=== PATIENT | male | born 1970 | race Caucasian/White ===

== ENCOUNTER 2020-07-27 13:11 | Emergency (ER) | payer OTHER, SELFPAY ==
--- NOTE | 2020-07-27 13:17 | ED_ITS ---
HPI - General Adult General: Chief complaint: Extremity Injury, Upper Stated complaint: Fall, suspects broken left arm, ribs Time Seen by Provider: 07/27/20 13:17 History of Present Illness: HPI narrative: Patient just fell a few minutes ago on his left side he said with his elbow tucked into side now has left elbow pain and left rib pain. Denies shortness of breath denies hitting his head loss of conscious nausea vomiting or other related problems he denies any pain anywhere else. MD complaint: Fall on ice elbow and rib pain left side Onset (ago): minute(s) Location: chest and upper extremity Radiation: non-radiation Severity: mild Severity scale (1-10): 3 Quality: burning and aching Pain Consistency: constant Relieving factors: immobilization Exacerbating factors: movement Associated symptoms: Reports no associated symptoms; Deny chest pain, dyspnea, headache(s), nausea, rash or vomiting Treatments prior to arrival: none Review of Systems Narrative: Left elbow and rib pain Const: Denies: fever(s), chills or body aches Eyes: Denies: change in vision or blurry vision ENMT: Denies: throat pain or nasal congestion Card: Denies: chest pain or dyspnea on exertion Resp: Denies: dyspnea, productive cough or non-productive cough GI: Denies: abdominal pain, nausea or vomiting : Denies: difficulty urinating Musc: Reports: joint pain (Left elbow); Denies: extremity pain Skin/Breast: Reports: other (Abrasion left elbow); Denies: rash Neuro: Denies: headache(s) Psych: Denies: anxiety Rohan/Lymph: Denies: easy bruising Physical Exam Const: COMMON NORMALS: no acute distress, average body habitus and patient oriented x3 HENMT: COMMON NORMALS: normocephalic HEAD & SCALP: normal to inspection and normocephalic FACE & SINUS: normal facial exam Eye: COMMON NORMALS: conjunctivae normal GENERAL EYE: appearance normal, both eyes and all related structures CONJUNCTIVA: Yes conjunctivae normal Neck/C-Spine: COMMON NORMALS: no JVD Chest: CHEST: Yes localized rib tenderness with anteroposterior compression (Left side) Location: 8th rib and 9th rib Resp: COMMON NORMALS: normal respiratory effort and clear to auscultation bilaterally AUSCULTATION: clear to auscultation bilaterally Cardio: COMMON NORMALS: no JVD, regular rate and regular rhythm RATE: regular rate RHYTHM: regular rhythm GI: COMMON NORMALS: Normal to inspection, nondistended, normoactive bowel sounds present Extremity: NARRATIVE EXTREMITY EXAM: Abrasion to distal aspect left elbow LEFT UPPER EXTREMITY: Yes elbow joint Left elbow: Yes inspection (Abrasion no swelling), Yes palpation (Tender to distal to the elbow approximately 2 to 3 inches), Yes ROM (Decreased) and Yes neurovascular exam (Intact) Neuro: COMMON NORMALS: patient oriented x3 Skin: OTHER: Abrasion distal to elbow Course Vital Signs: Vital signs: Vital Signs Temperature 98.0 F 07/27/20 13:24 Pulse Rate 72 07/27/20 13:24 Respiratory Rate 14 07/27/20 13:24 Blood Pressure 138/80 07/27/20 13:24 Pulse Oximetry 98 07/27/20 13:24 Discharge Plan Discharge Condition: Good Coding Level of Care Code ED Director Call Center Sales for Maritza Choudhury
[2020-07-27 13:24] VITALS: BP 138/80; PULSE 72; RESP 14; TEMP 36.7; O2SAT 98; BMI 31.4
--- NOTE | 2020-07-27 13:29 | XRR_ITS ---
PROCEDURE INFORMATION: Exam: XR Left Ribs with PA Chest, 3 Views Exam date and time: 07/27/2020 1:33 PM Age: 49 years old Clinical indication: Injury or trauma; Fall; Rib area, left side; Blunt trauma; Additional info: Fall , pain TECHNIQUE: Imaging protocol: XR Left ribs 3 views with PA chest. COMPARISON: No relevant prior studies available. FINDINGS: Lungs: Unremarkable. No consolidation. Pleural spaces: Unremarkable. No pleural effusion. No pneumothorax. Heart/Mediastinum: Unremarkable. No cardiomegaly. Bones/joints: There is a nondisplaced fracture of the posterolateral left 5th and 6th ribs. There is mild deformity of the anterior aspect of the left 4th rib suspected to be an old healed fracture. Postoperative changes in the cervical spine are noted. XR/XR ribs LT mn 3V w CXR1V [id number] IMPRESSION: Nondisplaced acute fractures of the left 5th and 6th ribs with suspected old fracture of the left 4th rib.
--- NOTE | 2020-07-27 13:29 | XRR_ITS ---
PROCEDURE INFORMATION: Exam: XR Left Elbow Exam date and time: 07/27/2020 1:32 PM Age: 49 years old Clinical indication: Injury or trauma; Fall; Blunt trauma (contusions or hematomas); Elbow; Left; Additional info: Fall, pain TECHNIQUE: Imaging protocol: XR Left elbow. Views: 3 or more views. COMPARISON: No relevant prior studies available. FINDINGS: Bones/joints: There is no elbow joint effusion. There is enthesopathy of the olecranon process and lateral epicondyle. Soft tissues: There is mild soft tissue edema overlying the olecranon process. XR/XR elbow LT min 3V* [id number] IMPRESSION: No acute bony abnormality.
[2020-07-27 15:08] VITALS: BP 130/83; PULSE 60; RESP 14; O2SAT 97
[2020-07-27] MEDS: TRAMadol 50 mg Tablet PO (15:08)
--- NOTE | 2020-07-27 15:16 | W.ED.EXTPRO ---
HPI - Extremity Problem General: Chief complaint: Extremity Injury, Upper Stated complaint: Fall, suspects broken left arm, ribs Time Seen by Provider: 07/27/20 13:17 History of Present Illness: Pain Consistency: constant Severity scale (1-10): 3 Course Vital Signs: Vital signs: Vital Signs Temperature 98.0 F 07/27/20 13:24 Pulse Rate 60 07/27/20 15:08 Respiratory Rate 14 07/27/20 15:08 Blood Pressure 130/83 07/27/20 15:08 Pulse Oximetry 97 07/27/20 15:08 MDM - Extremity (Nontraumatic) MDM Narrative: Medical decision making narrative: Patient has fracture of fifth and sixth ribs. 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 Patient follow-up primary care provider. Discharge Plan Discharge Patient Disposition: Home Clinical Impression: Contusion Qualifiers: Encounter type: initial encounter Contusion area: elbow Laterality: left Qualified Code(s): S50.02XA - Contusion of left elbow, initial encounter Fall Qualifiers: Encounter type: initial encounter Qualified Code(s): W19.XXXA - Unspecified fall, initial encounter Fracture of rib of left side Qualifiers: Encounter type: initial encounter Rib fracture type: multiple ribs Fracture type: closed Qualified Code(s): S22.42XA - Multiple fractures of ribs, left side, initial encounter for closed fracture Condition: Stable Prescriptions: New Celebrex 100 mg capsule 100 mg PO BID Qty: 20 RF: 0 hydrocodone-acetaminophen 5-325 mg tablet 1 tab PO TID PRN (Reason: pain) Qty: 14 RF: 0 Skelaxin 800 mg tablet 800 mg PO TID PRN (Reason: muscle pain) Qty: 10 RF: 0 Discharge Orders: Discharge ED (Routine); Ordered 07/27/20 Ordered By: Michael Byrne Discharge Diet: Usual diet Discharge Activity: Increase activity as tolerated Patient Instructions: Rib Fracture (ED), Contusion in Adults (ED) Activity Restrictions/Additional Instructions: Follow-up with medical provider as directed. Take medications as prescribed. Return to the ER or your medical provider if condition worsens. Please read and understand discharge instructions. If any questions ask please. Can apply ice areas that are tender. Coding Level of Care Code ED Senior Analyst Market Intelligence for Maritza Choudhury
== END 2020-07-27 15:08 | disposition home or self-care (01) ==
PROVIDERS: Emergency Provider Nurse Practitioner Family
DX: S50.02XA Contusion of left elbow, initial encounter (principal); S22.42XA Multiple fractures of ribs, left side, initial encounter for closed fracture; W19.XXXA Unspecified fall, initial encounter
CPT/HCPCS: 71101; 73080; 99283

== ENCOUNTER 2020-09-09 13:47 | Emergency (ER) | payer OTHER, SELFPAY ==
[2020-09-09 14:41] VITALS: BP 120/68; PULSE 94; RESP 18; TEMP 37.4; O2SAT 97; BMI 35.5
[2020-09-09 14:50] VITALS: BP 120/68; PULSE 99; RESP 16; O2SAT 98
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
--- NOTE | 2020-09-09 15:00 | XRR_ITS ---
PROCEDURE INFORMATION: Exam: XR Left Finger(s) Exam date and time: 09/09/2020 3:02 PM Age: 49 years old Clinical indication: Injury or trauma; Other: Laceration; Left; Index finger; Additional info: Index laceration TECHNIQUE: Imaging protocol: XR Left fingers. Views: Minimum 2 views. COMPARISON: No relevant prior studies available. FINDINGS: Bones/joints: No acute bony injury or malalignment. Soft tissues: Soft tissue swelling about the distal aspect of the index finger, without radiopaque foreign body. XR/XR finger LT min 2V [id number] IMPRESSION: Soft tissue swelling about the distal aspect of the index finger.
[2020-09-09] MEDS: lidocaine 2% INJ 20 mL INJECTION (15:45)
== END 2020-09-09 15:39 | disposition home or self-care (01) ==
PROVIDERS: Emergency Provider Physician Assistant
DX: S61.213A Laceration without foreign body of left middle finger without damage to nail, initial encounter (principal); S61.211A Laceration without foreign body of left index finger without damage to nail, initial encounter; F17.210 Nicotine dependence, cigarettes, uncomplicated; W26.0XXA Contact with knife, initial encounter
CPT/HCPCS: 12001; 73140; 99283

== ENCOUNTER → 2020-09-20 10:25 | Outpatient (BNVA) | payer OTHER, SELFPAY | PROVIDERS: Visit Provider Nurse Practitioner | DX: R19.4 Change in bowel habit (principal); R11.2 Nausea with vomiting, unspecified | CPT/HCPCS: 87071; 87880 ==

== ENCOUNTER 2020-09-24 08:47 | Outpatient (CLI) | payer OTHER, SELFPAY ==
[2020-09-24] MEDS: iohexol 300 mg/mL 50 mL Btl PO (09:24)
--- NOTE | 2020-09-24 10:30 | CT_ITS ---
WS: [id number] CT ABDOMEN PELVIS TECHNIQUE: Contrast-enhanced CT of the abdomen and pelvis with coronal and sagittal reformatted image s. CLINICAL INFORMATION: R19.4 - Change in bowel habit COMPARISON: 019 DLP: 1124.[address] scans at [facility] use at least one of these dose optimization techniques: automat ed exposure control; mA and/or kV adjustment per patient size (includes targeted exams where dose is matched to clinical indication); or iterative reconstruction. FINDINGS: Mild diffuse fatty infiltration of the liver. Cholecystectomy. Hepatomegaly. Mild splenomegaly. Siria l GE junction. Interstitial thickening and hazy infiltrates in the lung bases. Tree-in-bud nodularity in the left greater than right lower lobe. A few noncalcified subpleural nodules in the left lower l obe measuring 3 to 4 mm. Pleural thickening in the lingula with adjacent chronic appearing nondisplac ed seventh rib fracture. Mild fatty atrophy of the pancreas. Adrenal glands are normal. Normal renal parenchymal enhancement. No hydronephrosis. Normal caliber abdominal aorta. No abdominal lymphadenopathy. Sigmoid diverticulosis. No evidence of acute diverticulitis. Normal appendix in the right lower quadr ant. No evidence of small or large bowel obstruction. Tiny fat-containing umbilical hernia. CT/CT abdomen pelvis w con* [id number] IMPRESSION: 1. Mild diffuse fatty infiltration of the liver. Mild hepatomegaly and splenom egaly. 2. Patchy infiltrates in the left greater than right lower lobes may be infect ious or inflammatory. Recommend correlation for pneumonitis. One or 2 noncalcif ied tiny nodules in the left lower lobe. Findings can be further evaluated ches t CT. 3. Chronic appearing left seventh rib fracture with adjacent pleural thickenin g along the lingula 4. Sigmoid diverticulosis. No evidence of acute diverticulitis. 5. No evidence of small or large bowel obstruction. 6. No abdominal lymphadenopathy. 7. Tiny fat-containing umbilical hernia.
[2020-09-24] MEDS: iohexol 300 mg/mL 100 mL Btl IV (10:46)
== END 2020-09-24 08:48 | disposition home or self-care (01) ==
PROVIDERS: Visit Provider Surgery
DX: R19.4 Change in bowel habit (principal); K57.32 Diverticulitis of large intestine without perforation or abscess without bleeding; K76.0 Fatty (change of) liver, not elsewhere classified
CPT/HCPCS: 74177; Q9967

== ENCOUNTER → 2020-10-07 15:52 | Outpatient (BNVA) | payer OTHER, SELFPAY | PROVIDERS: Visit Provider Nurse Practitioner | DX: M25.572 Pain in left ankle and joints of left foot (principal) | CPT/HCPCS: 73610 ==

== ENCOUNTER → 2020-10-24 10:10 | Outpatient (BNVA) | payer OTHER, SELFPAY | PROVIDERS: PCP Emergency Medicine Emergency Medical Services; Visit Provider Surgery | DX: Z01.812 Encounter for preprocedural laboratory examination (principal); Z20.822 Contact with and (suspected) exposure to COVID-19 | CPT/HCPCS: 87635 ==

== ENCOUNTER 2020-10-29 07:58 | Day surgery (SDC) | payer OTHER, SELFPAY ==
[2020-10-27 13:39] VITALS: BMI 34.9
--- NOTE | 2020-10-29 08:29 | ANES.PREANE2 ---
Pre-Anesthetic Assessment Pre-Anesthetic Assessment: Height/Weight: Height 1.65 m Weight 95.254 kg Proposed Procedure: Operation Date: 10/29/20 09:45 Proposed Procedures p EGD [id number] R19.4 K21.9(Not Applicable) - Toan Monterroso MD s Colonoscopy(Not Applicable) - Toan Monterroso MD Was Beta George taken within 24 hours: N/A Was Clonidine taken within 24 hours: N/A Social: Social History: No alcohol and No tobacco Exam: Pre-Anes Outpt Exam: alert, oriented x 3, clear to auscultation bilaterally and regular rate & rhythm Airway: Submandibular: WNL Cervical ROM: Other (some limit) MP: 3 Dentition: Full Metabolic: Metabolic: Morbid obesity Neuropsych: Neuropsych: Anxiety Comments: PTSD Anesthetic Plan: ASA status: 3 Anesthesia: MAC Risk of > 500 ml blood loss (7ml/kg in children): No PFSH Anesthesia PFSH: Family History Denies family history of Anesthesia complication Bleeding disorder Social History Smoking and tobacco status: former smoker Data Anesthesia Cardiac Studies: No Data to Display
[2020-10-29 08:49] VITALS: BP 133/93; PULSE 108; RESP 18; TEMP 36.4; O2SAT 97
--- NOTE | 2020-10-29 09:03 | W.PM.OPSFHP ---
Same Day Surgery H&P Indication for Procedure/HPI DATE OF PROCEDURE: October 29, 2020 CHIEF COMPLAINT/INDICATIONFOR SURGICAL PROCEDURE: Change in bowel habits and bleeding per rectum PREOP DIAGNOSIS: vomiting/change in bowel habit PLANNED PROCEDRUE: Operation Date: 10/29/20 09:45 Proposed Procedures p EGD [id number] R19.4 K21.9(Not Applicable) - Toan Monterroso MD s Colonoscopy(Not Applicable) - Toan Monterroso MD This is a pleasant 49 years old gentleman presents to the office today with the broad-spectrum of GI symptomatology patient reports less nausea but more vomiting about 2-3 times a day for 2 to 3 days every week. He denies hematemesis and he complains of nonintentional weight loss without explanation. Complains of abdominal pain all over being sharp associated with pressure and twisting sometimes and being referred to the back. Patient reports that he has intermittent blood in stool and reports change in bowel habits in the form of diarrhea. Patient had his gallbladder out before. Patient reports that his symptom has been going on for quite some time. And he is referred to my practice for further evaluation and potential management Interim history 10/29/2020 Patient comes today for diagnostic EGD and colonoscopy as he did undergo a CT scan of the abdomen pelvis per my request and showed 1. Mild diffuse fatty infiltration of the liver. Mild hepatomegaly and splenomegaly. 2. Patchy infiltrates in the left greater than right lower lobes may be infectious or inflammatory. Recommend correlation for pneumonitis. One or 2 noncalcified tiny nodules in the left lower lobe. Findings can be further evaluated chest CT. 3. Chronic appearing left seventh rib fracture with adjacent pleural thickening along the lingula 4. Sigmoid diverticulosis. No evidence of acute diverticulitis. 5. No evidence of small or large bowel obstruction. 6. No abdominal lymphadenopathy. 7. Tiny fat-containing umbilical hernia. ROS All systems have been reviewed negative except as per the above or per problem list Medications/Allergies* Home Medications Medication Instructions Recorded Confirmed Type alprazolam 1 mg tablet 1 mg PO BID 08/14/20 10/27/20 History atorvastatin 80 mg tablet 80 mg PO DAILY 08/14/20 10/27/20 History gabapentin 800 mg tablet 800 mg PO TID PRN 08/14/20 10/27/20 History sertraline 100 mg tablet 200 mg PO DAILY tab 08/14/20 10/27/20 History Allergies/Adverse Reactions Allergy/AdvReac Type Severity Reaction Status Date / Time No Known Allergies Allergy Verified 10/29/20 09:29 Pertinent History/Comorbid Conditions* Family History (Updated 08/14/20 @ 14:14 by Alana Hernandez RN) Denies family history of Anesthesia complication Bleeding disorder Social History Smoking and tobacco status: former smoker Pertinent Exam Findings alert, oriented x 3, clear to auscultation bilaterally, regular rate & rhythm and procedure specific exam findings (Abdominal examination nontender nondistended soft) Recommendations Surgery/Procedure today (Diagnostic EGD and colonoscopy) Other Plans: Plan of care; After thorough history and physical examination and reviewing the chart chart and CT scan images with my personal interpretation, plan to perform a diagnostic esophagogastroduodenoscopy and diagnostic colonoscopy with possible biopsy and possible polypectomy. I discussed with the patient in detail the risks,benefits,alternatives and indications.The risk of aspiration, bleeding, soft tissue injury, perforation of the stomach/esophagus/colon and other potential concomitant complications were explained to the patient in details also the potential need for Thoracotomy and or Laproscoy/Laparotomy to repair any related complications including but not limited to colectomy and or Closotomy. The patient understood this well and did agree to proceed. Rationale was carefully and clearly discussed with the patient.Appropriate informed consent have been reviewed and signed Verbal and written Instructions were given to the patient for colonoscopy prep Coding Level of Care Code Acute Real Estate Coordinator for Maritza Choudhury
[2020-10-29] MEDS: sodium chloride 0.9% 1,000 ML 30 ML IV (09:22)
[2020-10-29 10:31] VITALS: BP 118/76; PULSE 86; RESP 16; TEMP 36.2; O2SAT 93
[2020-10-29 10:40] VITALS: BP 128/68; PULSE 75; RESP 17; O2SAT 92
[2020-10-29 10:50] VITALS: BP 116/76; PULSE 71; RESP 17; TEMP 36.9; O2SAT 95
--- NOTE | 2020-10-29 13:30 | ANE.PACU2 ---
Inpatient post-anesthesia follow up: Airway intact: Yes Vital signs: Temperature 98.4 F Pulse Rate 71 Respiratory Rate 17 Blood Pressure 116/76 Pulse Oximetry 95 Oxygen Delivery Me thod Room Air Oxygen Flow Rate 3 Fraction of Inspir ed Oxygen Hydration adequate: Yes Nausea and vomiting: No Pain level: 1 Mental status: Baseline
[2020-10-30 07:53] LABS: H. Pylori / CLO Test Negative
== END 2020-10-29 11:07 | disposition home or self-care (01) ==
PROVIDERS: PCP Emergency Medicine Emergency Medical Services; Visit Provider Surgery
PROC: 0DJ08ZZ Inspection of Upper Intestinal Tract, Via Natural or Artificial Opening Endoscopic (ICD-10-PCS; CPT 43235; principal; 2020-10-29 09:45)
PROC: 0DJD8ZZ Inspection of Lower Intestinal Tract, Via Natural or Artificial Opening Endoscopic (ICD-10-PCS; CPT 45378; 2020-10-29 09:45)
DX: D12.2 Benign neoplasm of ascending colon (principal); D12.4 Benign neoplasm of descending colon; D12.8 Benign neoplasm of rectum; K57.30 Diverticulosis of large intestine without perforation or abscess without bleeding; R19.4 Change in bowel habit; K62.5 Hemorrhage of anus and rectum; R11.10 Vomiting, unspecified; R16.0 Hepatomegaly, not elsewhere classified; R16.1 Splenomegaly, not elsewhere classified; S22.32XA Fracture of one rib, left side, initial encounter for closed fracture; X58.XXXA Exposure to other specified factors, initial encounter; E66.01 Morbid (severe) obesity due to excess calories; Z68.34 Body mass index [BMI] 34.0-34.9, adult; Z87.891 Personal history of nicotine dependence
CPT/HCPCS: 43239; 45385; 87077; 88305; 96360; 96361; J2704; J7030

== ENCOUNTER 2021-04-20 17:41 | Emergency (ER) | payer OTHER, SELFPAY ==
[2021-04-20 19:12] VITALS: BP 148/89; PULSE 112; RESP 18; TEMP 37.2; O2SAT 98; BMI 35.5
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
[2021-04-20] MEDS: HYDROcodone-acetaminophen 5-325 mg Tablet 1 TAB PO (21:39)
[2021-04-20 21:54] VITALS: BP 140/86; PULSE 99; RESP 18; O2SAT 97
== END 2021-04-20 21:55 | disposition home or self-care (01) ==
PROVIDERS: Emergency Provider Emergency Medicine; PCP Emergency Medicine Emergency Medical Services
DX: S29.012A Strain of muscle and tendon of back wall of thorax, initial encounter (principal); V89.2XXA Person injured in unspecified motor-vehicle accident, traffic, initial encounter; Z87.891 Personal history of nicotine dependence
CPT/HCPCS: 72125; 72128; 99282

== ENCOUNTER 2021-05-13 13:32 | Emergency (ER) | payer OTHER, SELFPAY ==
[2021-05-13] VITALS (7 sets, daily range): BP systolic 124–166; BP diastolic 77–97; PULSE 82–92; RESP 16–24; TEMP 36.9; O2SAT 92–96; BMI 35.5
--- NOTE | 2021-05-13 13:41 | ECG_ITS ---
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 Measurements Intervals [place] Rate: 83 P: 1 PA: 152 QRS: 90 QRSD: 101 T: 29 QT: 359 QTc: 423 Interpretive Statements SINUS RHYTHM Compared to ECG 05/13/2021 13:50:21 Myocardial infarct finding no longer present Electronically Signed On 05-13-2021 23:44:51 CLERICAL OFFICE by Elizabeth Bocanegra M.D. [id number]
--- NOTE | 2021-05-13 13:41 | XR_ITS ---
WS: [id number] Portable AP upright chest, 05/13/2021 Clinical Data: chest pain Comparison: PA chest, 07/27/2020. Findings: No nodules, masses or effusions are seen. The heart is at the upper limits of normal. The p ulmonary vascularity is not increased. No pneumonia or pneumothorax is seen. Monitor leads on the nino st wall. There is an anterior cervical disc fusion. XR/XR chest 1V portable [id number] Impression: Negative chest.
--- NOTE | 2021-05-13 14:02 | W.ED.CHESTPA ---
HPI - Chest Pain General: Chief Complaint: Chest Pain Stated Complaint: CP, PAIN IN L ARM, L JAW, SOB Time Seen by Provider: 05/13/21 14:02 History of Present Illness: HPI narrative: Mr Harris is a 50-year-old gentleman with history of gastritis who presents to the emergency department due to chest pain. Symptom onset was approximately 1 hour prior to arrival, he endorses midsternal chest pressure associated with radiation to the arm and neck. Minimal associated shortness of breath. Symptoms are worse with deep inspiration. He describes this is different than his typical indigestion. Overall the course has persisted. Intensity is moderate. No other new specific exacerbating or alleviating factors identified. Review of Systems General: Reports: 10 or more systems reviewed and unremarkable except in HPI and below PFSH ED PFSH: Family History Denies family history of Anesthesia complication Bleeding disorder Social History Smoking and tobacco status: former smoker Physical Exam Narrative: EXAM NARRATIVE: GENERAL/CONSTITUTIONAL - well-appearing. No acute distress. Obese Eyes -no scleral icterus, no conjunctival injection ENMT - Atraumatic external nose and ears. Moist mucous membranes NECK - supple. trachea midline CARDIOVASCULAR - regular rate and rhythm. Normal peripheral perfusion RESPIRATORY -diminished to auscultation bilaterally. No retractions or accessory muscle use. ABDOMEN/GI - Nontender/Nondistended. No tenderness to percussion or evidence of peritonitis MSK - Extremities without obvious deformity or tenderness to palpation SKIN - Warm, Dry NEURO - alert and appropriately oriented. Moves all extremities equally. Course ED course: - Patient was seen and evaluated by me at bedside - Patient placed on cardiac monitors, IV access obtained - Initial evaluation notable for no acute distress, nontoxic appearance. - Labs notable for mild leukocytosis, no acute metabolic derangements to explain patient's symptoms. - Imaging notable for no lobar consolidation or other significant finding to explain patient's symptoms - Upon serial reexamination after treatment the patient was similar - Based on patient history, evaluation, labs, and imaging as interpreted the most likely cause of the patient's condition is unspecified chest pain. I discussed possible options including admission for stress testing versus close outpatient follow-up. Patient comfortable with outpatient follow-up. - The results of ED evaluation were discussed with the patient including prescriptions and/or symptomatic cares (if applicable) including appropriate and responsible use, followup plan, and return precautions. The patient verbalized understanding and felt safe for discharge. - Patient discharged in satisfactory condition. Vital Signs: Vital signs: Vital Signs Temperature 98.5 F 05/13/21 14:39 Pulse Rate 88 05/13/21 20:48 Respiratory Rate 18 05/13/21 20:48 Blood Pressure 130/81 05/13/21 20:48 Pulse Oximetry 95 05/13/21 20:48 MDM - Chest Pain Medical Records: Attestation: I reviewed the patient's medical records. Lab Data: Attestation: I reviewed the patient's lab results. Labs: Lab Results 05/13/21 05/13/21 05/13/21 14:50 14:50 14:50 WBC 11.5 10^3/uL H 10 ^3/uL (4.0-10.0) RBC 5.13 10^6/uL 10^6 /uL (4.1-5.3) Hgb 13.4 g/dL g/dL (11.7-16.6) Hct 41.7 % L % (42.0-52.0) MCV 81.3 fl fl (80-94) MCH 26.1 pg L pg (28.0-34.0) MCHC 32.1 g/dL g/dL (30.0-36.0) RDW 13.5 % % (12.1-15.1) Plt Count 221 10^3/cmm 10^3 /cmm (130-400) MPV 10.6 fL H fL (7.4-10.4) Neut % (Auto) 74.4 % % Lymph % (Auto) 16.8 % % [place] % (Auto) 7.2 % % Eos % (Auto) 0.9 % % Baso % (Auto) 0.4 % % Neut # (Auto) 8.51 10^3/uL H 10 ^3/uL (1.8-7.7) Lymph # (Auto) 1.9 10^3/uL 10^3/ uL (0.8-4.8) [place] # (Auto) 0.8 10^3/uL 10^3/ uL (0.2-0.9) Eos # (Auto) 0.1 10^3/uL 10^3/ uL (0.0-0.8) Baso # (Auto) 0.1 10^3/uL 10^3/ uL (0.0-0.1) Nucleated RBC % (a uto) 0 % % Nucleated RBCs # 0.0 /100WBC /100W BC Sodium 136 mmol/L mmol/L (136-145) Potassium 4.4 mmol/L mmol/L (3.5-5.1) Chloride 96 mmol/L L mmol/ L (98-107) Carbon Dioxide 28 mmol/L mmol/L (22-29) Anion Gap 16.4 (5-19) BUN 10 mg/dL mg/dL (6-20) Creatinine 1.0 mg/dL mg/dL (0.7-1.2) GFR Calculation 79.4 mL/min L mL/ min (90-130) Glucose 98 mg/dL mg/dL (65-115) Calculated Osmolal ity 281 mOsm/kg L mOs m/kg (285-295) Calcium 9.1 mg/dL mg/dL (8.5-10.5) Total Bilirubin 0.3 mg/dL mg/dL (0.15-1.2) AST 15 U/L U/L (0-40) ALT 14 U/L U/L (0-41) Alkaline Phosphata se 92 IU/L IU/L (40-130) Troponin T Baselin e 6 ng/L ng/L (0-15) Troponin T 120 Min [place] Troponin T Total Protein 6.9 g/dL g/dL (6.6-8.7) Albumin 4.3 g/dL g/dL (3.5-5.2) Globulin 2.6 g/dL g/dL (1.3-4.6) Lipase 42 U/L U/L (13-60) 05/13/21 17:13 WBC RBC Hgb Hct MCV MCH MCHC RDW Plt Count MPV Neut % (Auto) Lymph % (Auto) [place] % (Auto) Eos % (Auto) Baso % (Auto) Neut # (Auto) Lymph # (Auto) [place] # (Auto) Eos # (Auto) Baso # (Auto) Nucleated RBC % (a uto) Nucleated RBCs # Sodium Potassium Chloride Carbon Dioxide Anion Gap BUN Creatinine GFR Calculation Glucose Calculated Osmolal ity Calcium Total Bilirubin AST ALT Alkaline Phosphata se Troponin T Baselin e Troponin T 120 Min [place] 6.00 ng/L ng/L (0-15) Delta Troponin T 0 ABS# ABS# (0-10) Total Protein Albumin Globulin Lipase EKG Data^: EKG 1: Attestation: I personally reviewed and interpreted this EKG as follows: EKG interpretation date: 05/13/21 EKG interpretation time: 14:15 Interpretation: Twelve-lead EKG shows a regular rhythm at a rate of 88. MO interval 180, QRS duration 106, QTc 392. Borderline axis. Interpretation: Sinus rhythm, nonspecific ST segment abnormalities. EKG 2: Attestation: I personally reviewed and interpreted this EKG as follows: EKG interpretation date: 05/13/21 EKG interpretation time: 18:20 Interpretation: Twelve-lead EKG shows a regular rhythm at a rate of 83. MO interval 152, QRS duration 101, QTc 399. Borderline axis. Interpretation: Sinus rhythm. Nonspecific ST segment abnormalities. Discharge Plan Discharge Patient Disposition: Home Clinical Impression: Chest pain Condition: Stable Prescriptions: New oxycodone 5 mg tablet 5 mg PO Q4H PRN (Reason: pain) Qty: 10 RF: 0 aspirin 325 mg tablet,delayed release (DR/EC) 325 mg PO DAILY Qty: 30 RF: 0 No Action atorvastatin 80 mg tablet 40 mg PO DAILY RF: 0 gabapentin 800 mg tablet 800 mg PO TID PRN (Reason: Pain) RF: 0 sertraline 100 mg tablet 200 mg PO QAM RF: 0 alprazolam 1 mg tablet 1 mg PO TID PRN (Reason: Anxiety) RF: 0 ziprasidone HCl 80 mg Capsule 80 mg PO BID RF: 0 doxepin 50 mg Capsule 100 mg PO BEDTIME RF: 0 trazodone 50 mg Tablet 25 mg PO BID RF: 0 metoprolol succinate 50 mg Tablet Extended Release 24 Hr 25 mg PO QAM RF: 0 Aspir-81 81 mg Tablet,Delayed Release (Dr/Ec) 81 mg PO DAILY RF: 0 Tylenol Ex Str Rapid Release 500 mg Tablet 1,000 mg PO Q4H PRN (Reason: Pain) RF: 0 baclofen 20 mg Tablet 20 mg PO BID PRN (Reason: Muscle Spasm) RF: 0 mirtazapine 30 mg Tablet 60 mg PO BEDTIME RF: 0 bupropion HCl 150 mg Tablet Extended Release 24 Hr 150 mg PO QAM RF: 0 Discharge Orders: Discharge ED (Routine); Ordered 05/13/21 Ordered By: Dawood Estrada Referrals: Ortega Marquis, [Primary Care Provider] - Discharge Diet: Usual diet Discharge Activity: Resume usual activity Patient Instructions: Chest Pain (ED), Opioid Safety Activity Restrictions/Additional Instructions: Thank you for visiting the emergency department. You were seen and evaluated for chest pain. The exact cause of your symptoms is unclear however does require further evaluation as discussed. Please follow-up with cardiology. Please follow-up with your primary care provider. Please return to the emergency department for anything that you are concerned about and feel needs emergency department evaluation. Coding Level of Care Code ED Patient Coordinator for Maritza Choudhury
[2021-05-13] MEDS: aspirin 81 mg Chew Tablet 324 MG PO (14:50)
[2021-05-13 15:08] LABS: Basophils # 0.1 10^3/uL (0.0-0.1); Basophils % 0.4 %; Eosinophils # 0.1 10^3/uL (0.0-0.8); Eosinophils % 0.9 %; Hematocrit 41.7 % (42.0-52.0); Hemoglobin 13.4 g/dL (11.7-16.6); Lymphocytes # 1.9 10^3/uL (0.8-4.8); Lymphocytes % 16.8 %; Mean Corpuscular HGB Conc 32.1 g/dL (30.0-36.0); Mean Corpuscular Hemoglobin 26.1 pg (28.0-34.0); Mean Corpuscular Volume 81.3 fl (80-94); Mean Platelet Volume 10.6 fL (7.4-10.4); Monocytes # 0.8 10^3/uL (0.2-0.9); Monocytes % 7.2 %; Neutrophils # 8.51 10^3/uL (1.8-7.7); Neutrophils % 74.4 %; Nucleated Red Blood Cells % 0 %; Platelet Count 221 10^3/cmm (130-400); Red Blood Count 5.13 10^6/uL (4.1-5.3); Red Cell Distribution Width 13.5 % (12.1-15.1); White Blood Count 11.5 10^3/uL (4.0-10.0)
[2021-05-13 15:24] LABS: Troponin(5th) Baseline 6 ng/L (0-15)
[2021-05-13 15:27] LABS: Alanine Aminotransferase 14 U/L (0-41); Albumin Level 4.3 g/dL (3.5-5.2); Alkaline Phosphatase 92 IU/L (40-130); Anion Gap 16.4 (5-19); Aspartate Amino Transferase 15 U/L (0-40); Blood Urea Nitrogen 10 mg/dL (6-20); Calcium 9.1 mg/dL (8.5-10.5); Carbon Dioxide 28 mmol/L (22-29); Chloride 96 mmol/L (98-107); Creatinine Clr Calc Pharmacy 98.8311; Globulin 2.6 g/dL (1.3-4.6); Glomerular Filtration Rate 79.4 mL/min (90-130); Glucose 98 mg/dL (65-115); Lipase 42 U/L (13-60); Osmolality Calculated 281 mOsm/kg (285-295); Potassium 4.4 mmol/L (3.5-5.1); Sodium 136 mmol/L (136-145); Total Bilirubin 0.3 mg/dL (0.15-1.2); Total Protein 6.9 g/dL (6.6-8.7)
[2021-05-13] MEDS: nitroglycerin 0.4 mg sublingual Tablet SUBLINGUAL (15:31)
[2021-05-13] MEDS: fentaNYL 50 mcg/mL INJ 2mL IVP (17:13)
[2021-05-13 17:46] LABS: Troponin 5 2HR Delta 0 ABS# (0-10)
[2021-05-13] MEDS: acetaminophen 500 mg Tablet 1000 MG PO (19:10)
[2021-05-13] MEDS: ketorolac 30 mg/mL INJ 15 MG IVP (19:11)
[2021-05-13] MEDS: morphine 4 mg/mL SDV 1 mL IVP (19:12)
--- NOTE | 2021-05-13 19:41 | ECG_ITS ---
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 Measurements Intervals [place] Rate: 88 P: 11 CO: 180 QRS: 88 QRSD: 106 T: 2 QT: 347 QTc: 421 Interpretive Statements SINUS RHYTHM POSSIBLE INFERIOR MYOCARDIAL INFARCTION , PROBABLY OLD [30 ms Q WAVE IN II/aVF] No previous ECG available for comparison Electronically Signed On 05-13-2021 23:55:24 SENIOR JAVA WEB DEVELOPER by Elizabeth Bocanegra M.D. [email or web address] medical [id number]
--- NOTE | 2021-05-15 11:55 | DCPLANNER ---
manager knowledge had message to schedule a follow up appointment for patient with [facility]. manager knowledge called [facility], spoke with Renuka, gave clinic patients information. A follow up appointment was scheduled for , May 28, 2021 at 12:[address] Campo. manager knowledge called patient and gave patient the appointment information. Patient has [facility] insurance, case management rn emailed patients information to September with [facility], for the authorization process can be started.
--- NOTE | 2021-06-11 14:22 | DCPLANNER ---
Patient had a follow up appointment scheduled with [facility] - patient did attend appointment.
== END 2021-05-13 20:49 | disposition home or self-care (01) ==
PROVIDERS: Emergency Provider Emergency Medicine; PCP Emergency Medicine Emergency Medical Services
DX: R07.9 Chest pain, unspecified (principal); Z79.82 Long term (current) use of aspirin; Z87.891 Personal history of nicotine dependence
CPT/HCPCS: 71045; 80053; 83690; 84484; 85025; 93005; 96374; 96375; 99284; J1885; J2270; J3010

== ENCOUNTER 2021-06-24 20:00 | Outpatient (CLI) | payer OTHER, SELFPAY | END 2021-06-24 20:01 | disposition home or self-care (01) | LOC: SLEEP 06-25 07:07 | PROVIDERS: PCP Emergency Medicine Emergency Medical Services; Visit Provider Emergency Medicine Emergency Medical Services | DX: G47.33 Obstructive sleep apnea (adult) (pediatric) (principal); M25.562 Pain in left knee; M25.561 Pain in right knee | CPT/HCPCS: 73560; 73565; 95811 ==

== ENCOUNTER 2021-07-14 20:00 | Outpatient (CLI) | payer OTHER, SELFPAY | END 2021-07-14 20:01 | disposition home or self-care (01) | LOC: SLEEP 07-15 07:36 | PROVIDERS: PCP Emergency Medicine Emergency Medical Services; Visit Provider Emergency Medicine Emergency Medical Services | DX: G47.33 Obstructive sleep apnea (adult) (pediatric) (principal) | CPT/HCPCS: 95811 ==

== ENCOUNTER 2021-07-23 08:11 | Outpatient (CLI) | payer OTHER, SELFPAY ==
--- NOTE | 2021-07-23 08:37 | ECG_ITS ---
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 Interpretive Statements NAME OF STUDY: EXERCISE SESTAMIBI STRESS TEST INDICATION: Chest Pain Baseline blood pressure of 172/109 mm Hg, heart rate 78 beats per minute and oxygen saturation 96%. EKG showed normal sinus rhythm, normal axis with normal ST-Ts. The patient exercised for 7 minutes 30 s on a standard Abraham protocol. Patient attained a maximum heart rate of 155 beats per minute(90% of the maximum predicted heart rate) with a blood pressure at the peak exercise of 227/96 mmHg mm Hg. The EKG at the peak exercise revealed sinus tachycardia with no significant ST-T wave changes. Patient did develop chest pain 2/10 with lightheadedness and shortness of breath 8 minutes 35 s into exercise that resolved ~2 minutes into recovery. During the recovery phase, there were no new changes. Blood pressure at the end of the recovery phase was 114/80 mm Hg with a heart rate of 93 beats per minute and oxygen saturation 95%. CONCLUSION: 1. Normal EKG response to treadmill exercise. 2. No exercise-induced chest pain or cardiac arrhythmia 3. Fair exercise tolerance, attained a maximum of 10.2 METs. Maximum VO2 of 35.7 mL/kg/min. 4. Baseline hypertension with hypertensive response to exercise. 5. Perfusion scan will be documented separately. Electronically Signed On 07-28-2021 11:19:28 HOT STRIP FINISHER by Michelle Campo M.D. [id number]
[2021-07-23 08:38] VITALS: BMI 35.5
--- NOTE | 2021-07-23 08:38 | NMCV_ITS ---
NM kamryn perf SPECT r/s* [id number] Lance Harris Age: 50 Gender: M : 1970 Exam Date: 07/23/2021 08:38 Ordering Phys: Michelle Campo MD ([email or web address]) Technologist: ELZA Anglin Exam Location: [facility] Indications: CHEST PAIN STRESS TEST Please see separate stress test report in [facility] for full findings IMAGE PROTOCOL Rest/Stress 1 Exercise Day Radiopharmaceutical Dose (mCi) Administration Site Administered by Rest: Tc-99m 10.8 IV ELZA Perkins Sestamibi Stress:Tc-99m 32.6 IV ELZA Perkins Sestamibi Rest: 23-Jul-2021 60 Discovery 630 Stress: 23-Jul-2021 30 Discovery 630 Radiopharmaceutical was injected at 86 % maximum heart rate. Images obtained in supine and prone position. SPECT RESULTS Technical Quality: Excellent Raw Data Analysis: Normal Image Corrections: No attenuation or motion correction applied Summed Stress Score: 5 Summed Rest Score: 0 Summed Difference Score: 5 PERFUSION FINDINGS Small sized perfusion abnormality of mild severity of apical inferior wall on rest images with reversibility in mid inferior and apical lateral cain on stress images. There is improved tracer uptake in prone stress images. FUNCTIONAL RESULTS (calculated via Gated SPECT) Stress Image LV EF (%): 69 Stress EDV (mL):104 TID: 0.8 Stress ESV (mL):32 FUNCTIONAL FINDINGS: The left ventricle is normal in size. Transient Ischemia Dilatation of 0.8. There is normal left ventricular systolic function. The left ventricular ejection fraction is normal with a value of 69%. There is normal left ventricular wall thickening with no regional wall motion abnormality. Normal end diastolic and ebd systolic volumes. IMPRESSIONS 1. Myocardial perfusion imaging is normal. 2. Overall left ventricular systolic function is normal without regional wall motion abnormalities, LVEF=69%. 3. EKG portion of the study will be reported separately. 4. Scan indicates low risk for cardiac events. Michelle Campo MD (Electronically Signed) Final Date: 25 July 2021 20:50 S
[2021-07-23 10:54] VITALS: BP 114/83; PULSE 93
== END 2021-07-23 08:12 | disposition home or self-care (01) ==
LOC: RAD 08:14 → CDL 08:22
PROVIDERS: PCP Emergency Medicine Emergency Medical Services; Visit Provider Internal Medicine Cardiovascular Disease
DX: R07.9 Chest pain, unspecified (principal); I10 Essential (primary) hypertension
CPT/HCPCS: 78452; 93017; A9500

== ENCOUNTER 2021-07-28 07:57 | Outpatient (CLI) | payer OTHER, SELFPAY ==
--- NOTE | 2021-07-28 08:02 | MR_ITS ---
WS: [id number] MRI RIGHT KNEE HISTORY: M25.561 - Pain in right knee COMPARISON: RIGHT knee radiograph 06/24/2021 Anterior cruciate ligament: Mild intrasubstance degeneration within the ACL. No tear. Posterior cruciate ligament: Intact. Medial collateral ligament: Intact. Posterior lateral corner structures: Intact. Medial menisci: Intrasubstance degeneration involving a large portion of the posterior horn. There is abnormal signal involving the free edge with fraying along the superior and inferior articular surfa faizan. Increased signal also extends into the meniscal root. No definite tear. Anterior horn is negativ e. Lateral meniscus: Intact. Normal signal, size and shape. Extensor mechanism: Distal quadriceps tendon and patellar tendons are intact. Fluid and soft tissue: No joint effusion. No Levine's cyst. Osseous and articular structures: Patellofemoral compartment: Very minimal superficial thinning medial patellar cartilage. No marrow ed kyler or displacement. Medial compartment: Mild narrowing of the medial compartment. Towards the intercondylar notch of the medial femoral condyle is abnormal signal extending near completely through the cartilage. This is al so the area of abnormality within the free edge of the posterior horn of the meniscus. No marrow radhika a. Lateral compartment: Negative. There are small subchondral cysts at the base of the tibial spine. MR/MR knee RT wo con* [id number] IMPRESSION: 1. Moderate intrasubstance degeneration involving the posterior horn medial me niscus. Moderate fraying involving the superior and inferior surfaces of the me niscus and greatest towards the free edge. 2. Mild chondromalacia involving the cartilage towards the intercondylar notch of the medial femoral condyle. Cartilage injury is in the similar location as the posterior medial meniscal degeneration/fraying. 3. No joint effusion.
== END 2021-07-28 07:58 | disposition home or self-care (01) ==
PROVIDERS: PCP Emergency Medicine Emergency Medical Services; Visit Provider Orthopaedic Surgery
DX: G89.29 Other chronic pain (principal); M94.261 Chondromalacia, right knee
CPT/HCPCS: 73721

== ENCOUNTER → 2021-08-24 12:54 | Outpatient (BNVA) | payer OTHER, SELFPAY | PROVIDERS: PCP Emergency Medicine Emergency Medical Services; Visit Provider Psychiatry & Neurology Psychiatry | DX: F41.0 Panic disorder [episodic paroxysmal anxiety] (principal); N41.0 Acute prostatitis | CPT/HCPCS: 99204 ==

== ENCOUNTER → 2021-08-31 08:04 | Outpatient (BNVA) | payer OTHER, SELFPAY | PROVIDERS: PCP Emergency Medicine Emergency Medical Services; Visit Provider Internal Medicine Pulmonary Disease | DX: R06.00 Dyspnea, unspecified (principal); F11.20 Opioid dependence, uncomplicated; F43.10 Post-traumatic stress disorder, unspecified; F17.290 Nicotine dependence, other tobacco product, uncomplicated | CPT/HCPCS: 87635; 99204 ==

== ENCOUNTER 2021-09-04 05:42 | Day surgery (SDC) | payer OTHER, SELFPAY ==
[2021-09-03 09:44] VITALS: BMI 37.1
[2021-09-04] VITALS (7 sets, daily range): BP systolic 93–148; BP diastolic 50–87; PULSE 65–77; RESP 16–20; TEMP 36.6–37.3; O2SAT 93–99
--- NOTE | 2021-09-04 06:23 | W.PM.OPSUD ---
Surgery/Procedure H&P Update DATE OF PROCEDURE: September 04, 2021 DATE H&P PERFORMED: 08/26/21 PREOP DIAGNOSIS: Posttraumatic arthritis left ankle PRIMARY INDICATION FOR PROCEDURE: None PLANNED PROCEDURE: Operation Date: 09/04/21 07:00 Proposed Procedures p Ankle Arthroscopy 27110/m19.172(Left) - Vinicius Cleaning DPM s Extensive Debridement(Left) - Vinicius Cleaning DPM
[2021-09-04] MEDS: CELEcoxib 200 mg Capsule 400 MG PO (06:25)
[2021-09-04] MEDS: gabapentin 300 mg Capsule PO (06:26)
[2021-09-04] MEDS: sodium chloride 0.9% 1,000 ML 30 ML IV (06:27)
--- NOTE | 2021-09-04 07:42 | P.ANESASSM_ITS ---
Pre-Anesthetic Assessment Height/Weight: Height 1.68 m Weight 104.326 kg Temp Pulse Resp BP Pulse Ox 99.1 F 77 18 145/87 97 09/04/21 06:11 09/04/21 06:11 09/04/21 06:11 09/04/21 06:11 09/04/21 06:11 Preop Diagnosis: Posttraumatic arthritis left ankle Operation Date: 09/04/21 07:00 Proposed Procedures p Ankle Arthroscopy 56964/m19.172(Left) - Vinicius Cleaning DPM s Extensive Debridement(Left) - Vinicius Cleaning DPM Familial anesthetic complications: None Was Beta George taken within 24 hours: Yes Was Clonidine taken within 24 hours: N/A Last intake: Intake Last Liquid Date 09/03/21 Last Liquid Time 20:00 Last Solid Date 09/03/21 Last Solid Time 16:00 Social No alcohol and No tobacco Exam alert, oriented x 3, clear to auscultation bilaterally and regular rate & rhythm Airway Submandibular: within normal limits Cervical ROM: within normal limits Mallampati: Class II Dentition: full CV/HEM Hypertension GI Gastroesophageal Reflux Disease Metabolic Hyperlipidemia and Morbid Obesity Neuropsych Anxiety Anesthetic Plan ASA status: 3 Anesthesia: General Risk of > 500 ml blood loss (7ml/kg in children): No Medications/Allergies Home Medications Medication Instructions Recorded Confirmed Last Taken Type atorvastatin 80 mg tablet 40 mg PO DAILY 08/14/20 09/04/21 09/03/21 History gabapentin 800 mg tablet 800 mg PO TID PRN 08/14/20 09/04/21 09/03/21 History sertraline 100 mg tablet 200 mg PO QAM tab 08/14/20 09/04/21 09/03/21 History acetaminophen 500 mg tablet 1,000 mg PO Q4H PRN 05/13/21 09/03/21 Unknown History aspirin 81 mg tablet,delayed 81 mg PO DAILY 05/13/21 09/04/21 09/02/21 History release baclofen 20 mg tablet 20 mg PO BID PRN 05/13/21 09/04/21 09/03/21 History bupropion HCl 150 mg 24 hr tablet, 150 mg PO QAM 05/13/21 09/04/21 09/03/21 History extended release doxepin 50 mg capsule 100 mg PO BEDTIME 05/13/21 09/04/21 09/03/21 History metoprolol succinate 50 mg 25 mg PO QAM 05/13/21 09/04/21 09/04/21 04:30 History tablet,extended release 24 hr mirtazapine 30 mg tablet 60 mg PO BEDTIME 05/13/21 09/04/21 09/03/21 History trazodone 50 mg tablet 25 mg PO BID 05/13/21 09/04/21 09/03/21 History ziprasidone HCl 80 mg capsule 80 mg PO BID 05/13/21 09/04/21 09/03/21 History olanzapine 10 mg disintegrating 10 mg PO .HS tab 08/24/21 09/04/21 09/03/21 History tablet spectrum AFO #1 ea 08/26/21 08/31/21 Unknown Rx oxycodone-acetaminophen 10 mg-325 1 tab PO Q6H PRN 7 Days #28 tab 09/04/21 Unknown Rx mg tablet (Percocet) Allergies Allergy/AdvReac Type Severity Reaction Status Date / Time No Known Allergies Allergy Verified 08/31/21 08:33 Current Medications Generic Name Dose Route Start Last Admin Trade Name Freq PRN Reason Stop Dose Admin Sodium Chloride 1,000 mls @ 30 mls/hr 09/04/21 06:00 09/04/21 06:27 Sodium Chloride 0.9% IV 09/05/21 05:59 30 mls/hr .Q24H ISMAEL Administration PFSH Anesthesia Medical History Acute prostatitis GERD (gastroesophageal reflux disease) GERD (gastroesophageal reflux disease) Hyperlipidemia Hypertension Psychiatric care Vomiting Surgical History H/O wrist surgery History of ankle surgery History of elbow surgery History of elbow surgery History of laparoscopic cholecystectomy History of neck surgery History of skin graft Family History Father Heart attack Mother Heart disease Cancer Denies family history of Anesthesia complication Bleeding disorder Social History Smoking and tobacco status: current every day smoker (VAPE) e-cigarettes E- Cigarette Details: vaporizer device and with nicotine Quit status (tobacco): has quit using tobacco Year quit tobacco: 2017 Former quit date comment: 1ppd x 10 years; started vaping when quit cigarettes Second hand smoke exposure: No Alcohol intake: never Data Anesthesia Cardiac Studies: Sestamibi Stress Test (Cardiology) 07/23/21
[2021-09-04] MEDS: lidocaine 1% INJ 20 mL 10 ML XX (07:45)
--- NOTE | 2021-09-04 08:22 | P.OP_ITS ---
Operative Report Date of procedure: September 04, 2021 Pre-op diagnosis: Posttraumatic arthritis left ankle Post-op diagnosis: Posttraumatic arthritis left ankle Post-op findings: Hemorrhagic synovitis of the left ankle joint with anterior impingement Procedure done: Left ankle arthroscopy with debridement. CPT code 28351 Implants: 4-0 nylon Specimens removed/disposition: None Pathology: None Surgeon: Vinicius Cleaning D.P.M. Consumer Affairs Manager: Brian Estimated blood loss: 5 56 IV fluids: None Urine output: 0 Complications: None Findings: Hemorrhagic synovitis and anterior osseous impingement left tibiotalar joint space Brief History: History of left ankle fracture, ORIF and hardware removal. Patient has experienced progressive pain at the left ankle described as achy and increases with activity, patient has posttraumatic arthritis, on x-ray there is joint space narrowing anteriorly, recommended ankle arthroscopy for diagnostic and therapeutic purposes this would include debridement. Risks include pain, bleeding, numbness, infection, neuritis, fistula, need for further surgical intervention. Procedure: Under mild sedation patient was brought to the operating room and placed on the operating table in supine position. A timeout was performed. Anesthesia was then administered by the anesthesia service. Well-padded pneumatic tourniquet applied to the left thigh. The left lower extremity was then scrubbed, prepped and draped utilizing normal aseptic technique. Left foot and ankle were exsanguinated with an Esmarch bandage and the tourniquet inflated to 250 mmHg. Attention was directed to the left anterior ankle where the medial lateral portals were palpated just medial to the tibialis anterior tendon and lateral to the peroneus tertius at the level ankle mortise. These were marked. 10 cc of 1% lidocaine plain utilized to insufflate the ankle medially at the medial portal. 11 blade was utilized to perform a small linear longitudinal incision through skin at the medial border of the left ankle followed by curved mosquito for dissection down to joint capsule. Trocar and cannula introduced into the medial portal for visualization and able to directly visualize the tibiotalar joint space. Under illumination lateral portal was established and a 3.5 mm shaver was introduced. The arthroscopy was 2.7 mm with 30 degree angle. There was extensive hemorrhagic synovitis at the lateral compartment the lateral gutter and anterior lateral ankle that was debrided under direct visualization. Able to visualize the talar dome through range of motion was smooth and no chondral defect appreciated. Is able to visualize anterior ankle anatomy, intracapsular ligaments and medial lateral gutter, after having debrided the lateral gutter there is significant improvement in visualization. Ankle joint was distended during the procedure utilizing 40 mmHg pump setting with lactated Ringer's. After performing extensive debridement the ankle was flushed and cleared out with lactated Ringer's. Instrumentation removed. Medial and lateral borders were then flushed and closed utilizing 4-0 nylon. Incisions were then dressed with Adaptic, sterile 4 x 4, Kerlix and Huang wrap, cam boot was applied and tourniquet was deflated with a prompt hyperemic response noted to the distal digits of the left foot. Patient tolerated the procedure and anesthesia well and was transferred to the PACU with vital signs stable and vascular status intact. He may be weightbearing as tolerated in the cam boot wa s given at home care instructions and follow-up.
[2021-09-04] MEDS: oxyCODONE-APAP 10-325 mg Tablet 1 TAB PO (09:10)
--- NOTE | 2021-09-04 17:41 | ANE.PACU2 ---
Inpatient post-anesthesia follow up: Airway intact: Yes Vital signs: Temperature 97.9 F Pulse Rate 77 Respiratory Rate 18 Blood Pressure 148/70 Pulse Oximetry 93 Oxygen Delivery Me thod Room Air Oxygen Flow Rate 6 Fraction of Inspir ed Oxygen Hydration adequate: Yes Nausea and vomiting: No Pain level: 2 Mental status: Baseline
== END 2021-09-04 09:10 | disposition home or self-care (01) ==
PROVIDERS: PCP Emergency Medicine Emergency Medical Services; Visit Provider Podiatrist Foot & Ankle Surgery
PROC: (CPT 29898; principal; 2021-09-04 07:00)
PROC: (CPT 29898; 2021-09-04 07:00)
DX: M19.072 Primary osteoarthritis, left ankle and foot (principal); I10 Essential (primary) hypertension; K21.9 Gastro-esophageal reflux disease without esophagitis; E78.5 Hyperlipidemia, unspecified; E66.01 Morbid (severe) obesity due to excess calories; Z68.37 Body mass index [BMI] 37.0-37.9, adult; Z79.82 Long term (current) use of aspirin; F17.290 Nicotine dependence, other tobacco product, uncomplicated
CPT/HCPCS: 29898; J0690; J1100; J2370; J2405; J2704; J3010; J7030

== ENCOUNTER 2021-09-16 10:56 | Outpatient (CLI) | payer OTHER, SELFPAY ==
--- NOTE | 2021-09-16 11:00 | CT_ITS ---
WS: [id number] CT CHEST TECHNIQUE: Noncontrast CT of the chest with coronal and sagittal reformatted images. CLINICAL INFORMATION: r/o interstital lung disease density in left lung on cxr COMPARISON: CT abdomen pelvis September 24, 2020 DLP: 2066.[address] scans at [facility] use at least one of these dose optimization techniques: automated e xposure control; mA and/or kV adjustment per patient size (includes targeted exams where dose is matc hed to clinical indication); or iterative reconstruction. FINDINGS: Diffuse patchy nodular infiltrates throughout the RIGHT lung mainly in a perilymphatic and central br onchovascular distribution. This involves both the RIGHT upper, middle and RIGHT lower lobes. This is slightly more prominent in the upper lobe. No significant infiltrates in the LEFT lung. No focal pne umonia or pleural fluid. No traction bronchiectasis. Bronchovascular thickening RIGHT hilum. A few sl ight prominent RIGHT hilar lymph nodes. No anterior mediastinal lymphadenopathy. Mild air-trapping in the RIGHT upper lobe. Nodular infiltrates involving the pleural surfaces in some areas and fissures. Prior cholecystectomy. Adrenal glands are normal. Tiny RIGHT adrenal nodule likely adenoma measuring 8 mm. Small esophageal hiatal hernia. Partially visualized postoperative changes lower cervical spine . CT/CT chest wo con [id number] IMPRESSION: 1. Diffuse nodular pulmonary infiltrates throughout the RIGHT lung mainly in a perilymphatic distribution. This is nonspecific and differential consideration s include infectious or inflammatory pneumonia, granulomatous disease including sarcoidosis, hypersensitivity pneumonitis, and occupational pneumoconiosis suc h as silicosis and CWP. 2. Mild RIGHT hilar bronchovascular thickening with a few slightly prominent l ymph nodes. No anterior mediastinal lymphadenopathy. 3. No bronchiectasis or subpleural honeycombing. 4. LEFT lung is well aerated.
== END 2021-09-16 10:57 | disposition home or self-care (01) ==
LOC: RAD 10:58
PROVIDERS: PCP Emergency Medicine Emergency Medical Services; Visit Provider Internal Medicine Pulmonary Disease
DX: J98.4 Other disorders of lung (principal); R06.00 Dyspnea, unspecified
CPT/HCPCS: 71250

== ENCOUNTER → 2021-09-17 15:01 | Outpatient (BNVA) | payer OTHER, SELFPAY | PROVIDERS: PCP Emergency Medicine Emergency Medical Services; Visit Provider Podiatrist Foot & Ankle Surgery | DX: M19.172 Post-traumatic osteoarthritis, left ankle and foot (principal); M25.372 Other instability, left ankle; F17.210 Nicotine dependence, cigarettes, uncomplicated | CPT/HCPCS: 99024 ==

== ENCOUNTER 2021-10-06 07:25 | Day surgery (SDC) | payer OTHER, SELFPAY ==
[2021-10-05 16:05] VITALS: BMI 37.1
[2021-10-06] VITALS (9 sets, daily range): BP systolic 107–129; BP diastolic 60–91; PULSE 60–72; RESP 12–18; TEMP 36.2–36.8; O2SAT 93–97
--- NOTE | 2021-10-06 | SCC_ITS ---
Procedure done: Bronchoscopy for airway inspection, transbronchial biopsies of right middle lobe, obtaining bronchoalveoalar lavage from right middle lobe, endobronchial ultrasound-guided and surveillance of hilar/mediastinal lymph nodes and fine needle aspiration cytology of station 7 lymph node and control of bleeding, 25.5 seconds of fluoroscopic guidance, for a cumulative dose of 9.44 mGy, was provided to Dr. Liu by the radiology department. C-arm images of the CHEST were saved for the patient's permanent record. JACLYND
[2021-10-06] MEDS: sodium chloride 0.9% 1,000 ML 30 ML IV (08:07)
--- NOTE | 2021-10-06 08:36 | P.ANESASSM_ITS ---
Pre-Anesthetic Assessment Height/Weight: Height 1.68 m Weight 104.326 kg Temp Pulse Resp BP Pulse Ox 98.2 F 66 16 129/91 97 10/06/21 07:47 10/06/21 07:47 10/06/21 07:47 10/06/21 07:47 10/06/21 07:47 Preop Diagnosis: Posttraumatic arthritis left ankle Operation Date: 10/06/21 09:25 Proposed Procedures p Bronchoscopy with transbronchial bx with fluor [id number]/j84.9(Not Applicable) - Jorge Malin DatarMD Familial anesthetic complications: None Was Beta George taken within 24 hours: Yes Was Clonidine taken within 24 hours: N/A Last intake: Intake Last Liquid Date 10/05/21 Last Liquid Time 11:30 Last Solid Date 10/05/21 Last Solid Time 11:30 Social Tobacco (Vapes) and No tobacco Exam alert, oriented x 3, clear to auscultation bilaterally and regular rate & rhythm Airway Submandibular: within normal limits Cervical ROM: within normal limits Mallampati: Class III Dentition: full Pulmonary Exertional Dyspnea and Sleep Apnea (Uses CPAP) States able to go up 3 flights of stairs without CP/SOB hx of CHAPMAN in chart CT Chest 09/16/21 CT/CT chest wo con [id number] IMPRESSION: ? 1.? Diffuse nodular pulmonary infiltrates throughout the RIGHT lung mainly in a perilymphatic distribution. This is nonspecific and differential considerations include infectious or inflammatory pneumonia, granulomatous disease including sarcoidosis, hypersensitivity pneumonitis, and occupational pneumoconiosis such as silicosis and CWP. 2.? Mild RIGHT hilar bronchovascular thickening with a few slightly prominent lymph nodes. No anterior mediastinal lymphadenopathy. 3.? No bronchiectasis or subpleural honeycombing. 4.? LEFT lung is well aerated. ? CV/HEM Hypertension 08/04 Stress Test CONCLUSION: 1.? Normal EKG response to treadmill exercise. 2.? No exercise-induced chest pain or cardiac arrhythmia 3.? Fair exercise tolerance, attained a maximum of 10.2 METs.? Maximum VO2 of 35.7 mL/kg/min. 4.? Baseline hypertension with hypertensive response to exercise. 5.? Perfusion scan will be documented separately. Nuc Med Scan 07/23/21 IMPRESSIONS ?1. Myocardial perfusion imaging is normal. ?2. Overall left ventricular systolic function is normal without regional wall ?motion abnormalities, LVEF=69%. ?3. EKG portion of the study will be reported separately. ?4. Scan indicates low risk for cardiac events. Hx of prostatitis Hepatic None reported GI Gastroesophageal Reflux Disease (Well controlled ) Hx of gastritis Denies reflux on empty stomach Metabolic None reported Musc/skel Osteoarthritis/DJD Neuropsych Anxiety Panic disorder Anesthetic Plan ASA status: 3 (51 year old obese daily smoker with hx of CHAPMAN, HTN, GERD ) Anesthesia: Anesthesia Evaluation and General Other: We discussed risk and benefits of general anesthesia including PONV, sore throat (sometimes severe), corneal abrasion, positioning and peripheral nerve injuries, life threatening allergic reaction, post operative ICU admission requiring prolonged intubation, stroke, heart attack, , and rare incidences of recall. Patient consents to proceed with general anesthesia. Risk of > 500 ml blood loss (7ml/kg in children): No Medications/Allergies Home Medications Medication Instructions Recorded Confirmed Last Taken Type atorvastatin 80 mg tablet 40 mg PO DAILY 08/14/20 10/06/21 10/04/21 History gabapentin 800 mg tablet 800 mg PO TID PRN 08/14/20 10/06/21 10/04/21 History sertraline 100 mg tablet 200 mg PO QAM tab 08/14/20 10/06/21 10/04/21 History acetaminophen 500 mg tablet 1,000 mg PO Q4H PRN 05/13/21 10/06/21 09/15/21 History aspirin 81 mg tablet,delayed 81 mg PO DAILY 05/13/21 10/06/21 10/05/21 History release baclofen 20 mg tablet 20 mg PO BID PRN 05/13/21 10/06/21 10/04/21 History bupropion HCl 150 mg 24 hr tablet, 150 mg PO QAM 05/13/21 10/06/21 10/04/21 History extended release doxepin 50 mg capsule 100 mg PO BEDTIME 05/13/21 10/06/21 10/04/21 History metoprolol succinate 50 mg 25 mg PO QAM 05/13/21 10/06/21 10/06/21 06:00 History tablet,extended release 24 hr mirtazapine 30 mg tablet 60 mg PO BEDTIME 05/13/21 10/06/21 10/04/21 History trazodone 50 mg tablet 25 mg PO BID 05/13/21 10/06/21 10/04/21 History ziprasidone HCl 80 mg capsule 80 mg PO BID 05/13/21 10/06/21 10/04/21 History olanzapine 10 mg disintegrating 10 mg PO .HS tab 08/24/21 10/06/21 10/04/21 History tablet spectrum AFO #1 ea 08/26/21 09/17/21 Unknown Rx oxycodone-acetaminophen 7.5 mg-325 1 tab PO Q4H PRN 7 Days #28 tab 09/10/21 10/06/21 09/29/21 Rx mg tablet (Percocet) Allergies Allergy/AdvReac Type Severity Reaction Status Date / Time No Known Allergies Allergy Verified 08/31/21 08:33 Current Medications Generic Name Dose Route Start Last Admin Trade Name Freq PRN Reason Stop Dose Admin Sodium Chloride 1,000 mls @ 30 mls/hr 10/06/21 07:45 10/06/21 08:07 Sodium Chloride 0.9% IV 10/07/21 07:44 30 mls/hr .Q24H ISMAEL Administration PFSH Anesthesia Medical History Acute prostatitis GERD (gastroesophageal reflux disease) GERD (gastroesophageal reflux disease) Hyperlipidemia Hypertension Psychiatric care Vomiting Surgical History H/O wrist surgery History of ankle surgery History of elbow surgery History of elbow surgery History of laparoscopic cholecystectomy History of neck surgery History of skin graft Family History Father Heart attack Mother Heart disease Cancer Denies family history of Anesthesia complication Bleeding disorder Social History Smoking and tobacco status: current every day smoker (VAPE) e-cigarettes E- Cigarette Details: vaporizer device and with nicotine Quit status (tobacco): has quit using tobacco Year quit tobacco: 2016 Former quit date comment: 1ppd x 10 years; started vaping when quit cigarettes Second hand smoke exposure: No Alcohol intake: never Data Anesthesia Cardiac Studies: Sestamibi Stress Test (Cardiology) 07/23/21
--- NOTE | 2021-10-06 10:01 | P.HP_ITS ---
Providers/Chief Complaint Admitting Physician: Jorge Liu MD Primary Care Provider: Ortega Marquis DO Chief Complaint: interstitial lung disease dyspnea and hemotysis History of Present Illness I have seen this patient in clinic 08/31/2021 Lance Harris is a 51 year old male with past medical history, atherosclerotic heart disease of jena artery, diabetes, hyperlipidemia, chronic smoker, depression, GERD his PCP Dr. Marquis from [place] for SOB on exertion, occasional hemoptysis, most recently 1 week ago; occasional productive cough with brown sputum for which she received antibiotics given by his PCP. 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 Denied any history of asthma, any known allergens,.? Has tried albuterol inhaler previously but did not notice change in symptoms. newly diagnosed sleep apnea and CPAP has been ordered by [place].? Current every day vaper, quit smoking cigarettes 2016.? 1ppd x 10 year Hx; started vaping when quit cigarettes. Family history of [place] in father at age 62 and older brother with CAD and stents in his 40s.? Underwent exercise sestamibi myocardial perfusion imaging and stress test which were normal July 2021. Patient had mild density in the lateral aspect of left lung base on chest x-ray for which a CT chest was performed on 09/16/2021 which showed diffuse nodular pulmonary infiltrates throughout the right lung mainly in perilymphatic distribution. This is nonspecific and differential considerations include infectious/inflammatory pneumonia, granulomatous disease including sarcoidosis, hypersensitivity pneumonitis and occupational pneumoconiosis such as silicosis and CWP. Mild right hilar bronchovascular thickening with few slightly prominent lymph nodes. No anterior mediastinal lymphadenopathy. No bronchiectasis nor subpleural honeycombing. Today patient is scheduled for bronchoscopy for airway inspection, transbronchial biopsies of right middle lobe, obtaining BAL, control of bleeding, endobronchial ultrasound-guided and surveillance of hilar/mediastinal lymph nodes and possible biopsies. In the preop area he denied any new complaints. Medications/Allergies Home Medications Medication Instructions Recorded Confirmed Last Taken Type atorvastatin 80 mg tablet 40 mg PO DAILY 08/14/20 10/06/21 10/04/21 History gabapentin 800 mg tablet 800 mg PO TID PRN 08/14/20 10/06/21 10/04/21 History sertraline 100 mg tablet 200 mg PO QAM tab 08/14/20 10/06/21 10/04/21 History acetaminophen 500 mg tablet 1,000 mg PO Q4H PRN 05/13/21 10/06/21 09/15/21 History aspirin 81 mg tablet,delayed 81 mg PO DAILY 05/13/21 10/06/21 10/05/21 History release baclofen 20 mg tablet 20 mg PO BID PRN 05/13/21 10/06/21 10/04/21 History bupropion HCl 150 mg 24 hr tablet, 150 mg PO QAM 05/13/21 10/06/21 10/04/21 History extended release doxepin 50 mg capsule 100 mg PO BEDTIME 05/13/21 10/06/21 10/04/21 History metoprolol succinate 50 mg 25 mg PO QAM 05/13/21 10/06/21 10/06/21 06:00 History tablet,extended release 24 hr mirtazapine 30 mg tablet 60 mg PO BEDTIME 05/13/21 10/06/21 10/04/21 History trazodone 50 mg tablet 25 mg PO BID 05/13/21 10/06/21 10/04/21 History ziprasidone HCl 80 mg capsule 80 mg PO BID 05/13/21 10/06/21 10/04/21 History olanzapine 10 mg disintegrating 10 mg PO .HS tab 08/24/21 10/06/21 10/04/21 History tablet spectrum AFO #1 ea 08/26/21 09/17/21 Unknown Rx oxycodone-acetaminophen 7.5 mg-325 1 tab PO Q4H PRN 7 Days #28 tab 09/10/21 10/06/21 09/29/21 Rx mg tablet (Percocet) Allergies Allergy/AdvReac Type Severity Reaction Status Date / Time No Known Allergies Allergy Verified 08/31/21 08:33 PFSH PFSH: Medical History Acute prostatitis GERD (gastroesophageal reflux disease) GERD (gastroesophageal reflux disease) Hyperlipidemia Hypertension Psychiatric care Vomiting Surgical History H/O wrist surgery History of ankle surgery History of elbow surgery History of elbow surgery History of laparoscopic cholecystectomy History of neck surgery History of skin graft Family History Father Heart attack Mother Heart disease Cancer Denies family history of Anesthesia complication Bleeding disorder Social History Smoking and tobacco status: current every day smoker (VAPE) e-cigarettes E- Cigarette Details: vaporizer device and with nicotine Quit status (tobacco): has quit using tobacco Year quit tobacco: 2016 Former quit date comment: 1ppd x 10 years; started vaping when quit cigarettes Second hand smoke exposure: No Alcohol intake: never Dietary Habits: Caffeine: Yes Vital Signs Vitals Signs: Last Vital Signs Temp 98.2 F 10/06/21 07:47 Pulse 66 10/06/21 07:47 Resp 16 10/06/21 07:47 BP 129/91 10/06/21 07:47 Pulse Ox 97 10/06/21 07:47 Weight: Weight last 48 hrs Weight 230 lb Physical Exam Narrative: EXAM NARRATIVE: General: alert, NAD HEENT: conj clear, EOMI, PERRL, mmm, Neck: supple, no meningismus Heme: no cervical LAP Pulmonary: CTAB, no wheezing, rhonchi, crackles Cardiovascular: rrr, nl s1s2, no mrg Abdomen: soft, nt, nd, no r/g, bs+ Extremities: pulses +, no edema, no c/c : no CVA tenderness Skin: intact, no rash MSK: no back or neck pain Neurologic: grossly intact A&P Assessment and plan (1) Exertional dyspnea: Status: Acute (2) Pulmonary infiltrates: Status: Acute Plan #Dyspnea with hemoptysis #Diffuse patchy nodular infiltrates throughout the right lung mainly perilymphatic and central bronchovascular distribution -Schedule for bronchoscopy for airway inspection, transbronchial biopsies of right middle lobe, obtaining BAL for flow cytometry, fluid analysis, cultures, endobronchial ultrasound-guided biopsies of hilar/mediastinal lymph nodes and control of bleeding -Patient to follow-up in clinic in 7 to 10 days for results Coding Level of Care Code New 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
--- NOTE | 2021-10-06 10:17 | SC_ITS ---
WS: [email or web address] C-arm fluoroscopy for right lung bronchoscopy, 10/06/2021 Clinical Data: interstitial lung disease Comparison: None. Findings: Dr. Liu performed right lower lobe bronchoscopy. SC/C-arm FL for Bronchoscopy Impression: Right lower lobe bronchoscopy.
[2021-10-06] MEDS: lidocaine 1% INJ 20 mL XX (10:33)
--- NOTE | 2021-10-06 11:29 | PM.OP ---
Operative Report Date of procedure: October 06, 2021 Pre-op diagnosis: Preop Diagnosis Posttraumatic arthritis left ankle Post-op diagnosis: pneumonia vs sarcoidosis Procedure done: Bronchoscopy for airway inspection, transbronchial biopsies of right middle lobe, obtaining bronchoalveoalar lavage from right middle lobe, endobronchial ultrasound-guided and surveillance of hilar/mediastinal lymph nodes and fine needle aspiration cytology of station 7 lymph node and control of bleeding, Surgeon: Dr. Patel Datar Brief History: Lance Harris is a 51 year old male with past medical history, atherosclerotic heart disease of [place] artery, diabetes, hyperlipidemia, chronic smoker, depression, GERD his PCP Dr. Marquis from [place] for SOB on exertion, occasional hemoptysis, most recently 1 week ago; occasional productive cough with brown sputum for which she received antibiotics given by his PCP. His complaints started 6 months ago and since then they are on and off. History of [id number] smoking history quit 2016 and started vaping since then. Patient had mild density in the lateral aspect of left lung base on chest x-ray for which a CT chest was performed on 09/16/2021 which showed diffuse nodular pulmonary infiltrates throughout the right lung mainly in perilymphatic distribution.? This is nonspecific and differential considerations include infectious/inflammatory pneumonia, granulomatous disease including sarcoidosis, hypersensitivity pneumonitis and occupational pneumoconiosis such as silicosis and CWP.? Mild right hilar bronchovascular thickening with few slightly prominent lymph nodes.? No anterior mediastinal lymphadenopathy.? No bronchiectasis nor subpleural honeycombing. Procedure: Name of the procedure: Bronchoscopy for airway inspection, transbronchial biopsies of right middle lobe, obtaining bronchoalveoalar lavage from right middle lobe, endobronchial ultrasound-guided and surveillance of hilar/mediastinal lymph nodes and fine needle aspiration cytology of station 7 lymph node and control of bleeding. Indication: diffuse nodular pulmonary infiltrates throughout the right lung mainly in perilymphatic distribution patient with history of exertional dyspnea and hemoptysis on and off for the last 6 months Anesthesia: General anesthesia. Local anesthesia: The tati in the right and left mainstem bronchi were anesthetized with 1% lidocaine, 3 mL. Description of the procedure: The procedure was explained to the patient and the consent was obtained. The patient was brought to the OR. The patient underwent endotracheal intubation for general anesthesia. Following induction of general anesthesia, the bronchoscope was advanced through the ET tube. The lower trachea appeared normal, no endotracheal lesion was seen. The tati was sharp. The tati, the right and left mainstem bronchi are anesthetized with 1% lidocaine. In a systematic manner bilateral bronchial tree was then examined. The bronchoscope was advanced into the left mainstem bronchus. The left upper lobe, lingula and left lower lobe bronchi were examined up to the third subsegmental level and no abnormalities were identified. Mucosa appeared normal and there were no endobronchial lesions, active bleeding or mucous plug. The bronchoscope was then introduced into the right mainstem bronchus. The right upper lobe, right middle lobe and right lower lobe bronchi were examined up to the third subsegmental level and no abnormalities were identified. Mucosa appeared normal and there were no endobronchial lesions, active bleeding or mucous plug. I Bronchoalveolar lavage was performed from the medial segment of the right middle lobe. 60 mL of saline was instilled, fluid return was 25 mL. The fluid was cloudy. 4 Transbronchial biopsies were taken from the right middle lobe and sent for histopathology. The endobronchial ultrasound was introduced through the ET tube. Lymph nodes were identified in station 7 sub carinal area. Transbronchial needle aspiration was performed from station 7 lymph nodes. Samples: 1. Bronchoalveolar lavage specimen was sent for cell count and differential, CD4 CD8 ratio, Gram stain and culture, fungal stain and culture, AFB stain and culture, 2. The transbronchial bronchial biopsies are sent for histopathology. 3. The transbronchial needle aspiration from station 7 lymph node groups were sent for cytology. Complications: There was no immediate complications. Postprocedure fluoroscopy did not reveal any pneumothorax. The patient was extubated and brought to the PACU in stable condition. Chest x-ray: Pending
--- NOTE | 2021-10-06 11:52 | XR_ITS ---
WS: [email or web address] Portable AP upright chest, 10/06/2021 Clinical Data: post ebus/ bronch Comparison: PA and lateral chest, 06/10/2021. Findings: No nodules, masses or effusions are seen. The heart is slightly enlarged. The pulmonary vas cularity is not increased. No pneumonia or pneumothorax is seen. There is an anterior cervical disc f usion. Monitor leads are on the chest wall. XR/XR chest 1V portable [id number] Impression: Cardiomegaly
[2021-10-06 14:09] LABS: WBC Within 10% 9
[2021-10-06 14:15] LABS: Apprearance, Bronch Wash Clear (CLEAR); Bronch Source Right Middle Lobe; Color, Bronc Wash Colorless
[2021-10-06 14:17] LABS: PATH Referral Yes
[2021-10-06 15:07] LABS: Total Cells Counted Bronch 200
[2021-10-07 12:54] LABS: Lymphoma Profile (BBPL) See Report
== END 2021-10-06 12:50 | disposition home or self-care (01) ==
PROVIDERS: PCP Emergency Medicine Emergency Medical Services; Visit Provider Internal Medicine Pulmonary Disease
PROC: 0BJ08ZZ Inspection of Tracheobronchial Tree, Via Natural or Artificial Opening Endoscopic (ICD-10-PCS; CPT 31622; principal; 2021-10-06 09:15)
PROC: BB4BZZZ Ultrasonography of Pleura (ICD-10-PCS; CPT 31628; 2021-10-06 09:15)
DX: R91.8 Other nonspecific abnormal finding of lung field (principal); R06.00 Dyspnea, unspecified; K21.9 Gastro-esophageal reflux disease without esophagitis; M19.90 Unspecified osteoarthritis, unspecified site; F41.9 Anxiety disorder, unspecified; E66.9 Obesity, unspecified; Z68.37 Body mass index [BMI] 37.0-37.9, adult; I10 Essential (primary) hypertension; Z79.82 Long term (current) use of aspirin; E78.5 Hyperlipidemia, unspecified; F17.290 Nicotine dependence, other tobacco product, uncomplicated
CPT/HCPCS: 31628; 31652; 71045; 76000; 80503; 87015; 87070; 87102; 87116; 87205; 87206; 87801; 88108; 88184; 88185; 88305; 88307; 89050; J1100; J2405; J2704; J2710; J3010; J3490; J7030

== ENCOUNTER → 2021-10-16 10:03 | Outpatient (BNVA) | payer OTHER, SELFPAY | PROVIDERS: PCP Emergency Medicine Emergency Medical Services; Visit Provider Psychiatry & Neurology Psychiatry | DX: F41.0 Panic disorder [episodic paroxysmal anxiety] (principal); F33.2 Major depressive disorder, recurrent severe without psychotic features | CPT/HCPCS: 99213 ==

== ENCOUNTER 2021-11-20 14:09 | Outpatient (CLI) | payer OTHER, SELFPAY ==
--- NOTE | 2021-11-20 14:30 | CT_ITS ---
WS: [email or web address] CT CHEST TECHNIQUE: Noncontrast CT of the chest with coronal and sagittal reformatted images. CLINICAL INFORMATION: f/u lung nodules COMPARISON: CT chest September 16, 2021 DLP: 780.[address] scans at [facility] use at least one of these dose optimization techniques: automated e xposure control; mA and/or kV adjustment per patient size (includes targeted exams where dose is matc hed to clinical indication); or iterative reconstruction. FINDINGS: Previously described diffuse nodular pulmonary infiltrates have significantly improved since the prio r examination. Previously described nodularity has significantly improved and essentially resolved. R esidual interstitial infiltrates with slight hazy groundglass opacities in the RIGHT upper and superi or segment RIGHT lower lobes. Small amount of hazy atelectasis in the RIGHT middle lobe anteriorly. Slight patchy interstitial thickening with a few groundglass opacities in the LEFT lower lobe posteri bhargav and medially.No other significant changes compared to previous. A few scattered stable noncalcified pulmonary nodules largest in the RIGHT upper lobe measuring 5 mm. A few tiny subpleural nodules in the lung bases. Normal caliber thoracic aorta. No mediastinal or hilar lymphadenopathy. Small RIGHT adrenal adenoma m easuring 7 mm is unchanged. Prior cholecystectomy. Normal GE junction. LEFT adrenal gland is normal. Normal thoracic spine. CT/CT chest wo con [id number] IMPRESSION: 1. Previously described interstitial infiltrates with nodular opacities have s ignificantly improved and nearly resolved compared to previous. 2. Small amount of residual interstitial thickening with slight hazy groundgla ss opacities in the RIGHT greater than LEFT lower lobes and RIGHT upper lobe al shannon the fissure. 3. No mediastinal or hilar lymphadenopathy. 4. No other significant changes compared to previous. 5. Stable 5 mm noncalcified nodule RIGHT upper lobe. A few tiny subpleural nod ules in the lung bases.
== END 2021-11-20 14:10 | disposition home or self-care (01) ==
LOC: RAD 14:11
PROVIDERS: PCP Emergency Medicine Emergency Medical Services; Visit Provider Internal Medicine Pulmonary Disease
DX: R91.8 Other nonspecific abnormal finding of lung field (principal)
CPT/HCPCS: 71250

== ENCOUNTER → 2021-11-24 08:24 | Outpatient (BNVA) | payer OTHER, SELFPAY | PROVIDERS: PCP Emergency Medicine Emergency Medical Services; Visit Provider Orthopaedic Surgery | DX: M17.11 Unilateral primary osteoarthritis, right knee (principal) | CPT/HCPCS: 20610; J7327 ==

== ENCOUNTER → 2021-12-02 10:43 | Outpatient (BNVA) | payer OTHER, SELFPAY | PROVIDERS: PCP Emergency Medicine Emergency Medical Services; Visit Provider Internal Medicine Pulmonary Disease | DX: R06.00 Dyspnea, unspecified (principal); F11.20 Opioid dependence, uncomplicated; F43.10 Post-traumatic stress disorder, unspecified; J69.0 Pneumonitis due to inhalation of food and vomit; Z91.89 Other specified personal risk factors, not elsewhere classified; R91.8 Other nonspecific abnormal finding of lung field; U07.0 Vaping-related disorder; F17.200 Nicotine dependence, unspecified, uncomplicated; K21.9 Gastro-esophageal reflux disease without esophagitis; E78.5 Hyperlipidemia, unspecified; I10 Essential (primary) hypertension | CPT/HCPCS: 99214 ==

== ENCOUNTER 2021-12-10 08:01 | Outpatient (CLI) | payer OTHER, SELFPAY ==
--- NOTE | 2021-12-10 08:15 | FL_ITS ---
WS: [email or web address] FL barium swallow [id number] REASON FOR EXAM: Possible aspiration. FLUOROSCOPY TIME: 2min [id number] # OF SPOT FILMS: 9 Patient was examined in the standing AP and lateral projections. The prone MONTERO projection. In the sup ine LPO position. The swallowing of barium was evaluated from the oropharynx to the gastric fundus wi th fluoroscopy and multiple spot films. FINDINGS: In the oral/hypopharyngeal region there is mild penetration of barium without overt aspiration. From the thoracic inlet distally the primary peristaltic wave of the esophagus is lost and transition s into multiple tertiary contractions. There is dilatation of the esophagus. Contraction in the midpo rtion of the esophagus propels barium retrograde towards the hypopharynx. In the supine LPO position reflux is demonstrated and there is a small sliding hiatal hernia. FL/FL barium swallow [id number] IMPRESSION: There is significant esophageal dysmotility as above. While joana aspiration wa s not identified the dysmotility of the esophagus definitely presents the poten tial for aspiration.
== END 2021-12-10 08:02 | disposition home or self-care (01) ==
PROVIDERS: PCP Emergency Medicine Emergency Medical Services; Visit Provider Internal Medicine Pulmonary Disease
DX: J69.0 Pneumonitis due to inhalation of food and vomit (principal); R13.10 Dysphagia, unspecified; R91.8 Other nonspecific abnormal finding of lung field
CPT/HCPCS: 74220

== ENCOUNTER → 2021-12-15 14:43 | Outpatient (BNVA) | payer OTHER, SELFPAY | PROVIDERS: PCP Emergency Medicine Emergency Medical Services; Visit Provider Podiatrist Foot & Ankle Surgery | DX: M19.072 Primary osteoarthritis, left ankle and foot (principal); M25.372 Other instability, left ankle; M25.572 Pain in left ankle and joints of left foot | CPT/HCPCS: 99213; 99214 ==

== ENCOUNTER 2022-01-06 09:03 | Outpatient (CLI) | payer OTHER, SELFPAY ==
--- NOTE | 2022-01-06 13:46 | PFTS_ITS ---
Date of Study:01/06/22 Date of Dictation: 01/08/2022 MECHANICS: Postbronchodilator forced vital capacity (FVC) is reduced. Postbronchodilator forced expiratory volume in one second (FEV1) is moderately reduced. FEV1/FVC is normal. There is no significant bronchodilator response. FLOW VOLUME LOOP: Normal . LUNG VOLUMES: Total lung capacity (TLC) is reduced. Residual volume (RV) is reduced. DIFFUSING CAPACITY FOR CARBON MONOXIDE: Normal . INTERPRETATION: The spirometry is suggestive of moderate restriction. There is no significant bronchodilator response. Lung volumes suggest moderate restriction. Gas transfer is normal. Clinical correlation recommended. MTDD
== END 2022-01-06 09:04 | disposition home or self-care (01) ==
LOC: RT 09:03
PROVIDERS: PCP Emergency Medicine Emergency Medical Services; Visit Provider Internal Medicine Pulmonary Disease
DX: R06.09 Other forms of dyspnea (principal)
CPT/HCPCS: 94060; 94618; 94726; 94729; J7614

== ENCOUNTER → 2022-01-20 09:27 | Outpatient (BNVA) | payer OTHER, SELFPAY | PROVIDERS: PCP Emergency Medicine Emergency Medical Services; Visit Provider Orthopaedic Surgery | DX: S89.91XA Unspecified injury of right lower leg, initial encounter (principal); W19.XXXA Unspecified fall, initial encounter; M25.561 Pain in right knee | CPT/HCPCS: 73560; 73565; 99213 ==

== ENCOUNTER → 2022-01-28 10:29 | Outpatient (BNVA) | payer OTHER, SELFPAY | PROVIDERS: PCP Emergency Medicine Emergency Medical Services; Visit Provider Internal Medicine Cardiovascular Disease | DX: R07.9 Chest pain, unspecified (principal); I10 Essential (primary) hypertension; E78.2 Mixed hyperlipidemia; Z82.49 Family history of ischemic heart disease and other diseases of the circulatory system; K21.9 Gastro-esophageal reflux disease without esophagitis; Z87.891 Personal history of nicotine dependence | CPT/HCPCS: 99214 ==

== ENCOUNTER 2022-02-02 06:34 | Outpatient (CLI) | payer OTHER, SELFPAY ==
--- NOTE | 2022-02-02 07:15 | MR_ITS ---
WS: [email or web address] MRI RIGHT KNEE HISTORY: Twisting injury 4 weeks ago. Lateral knee pain. COMPARISON: 07/28/2021 Anterior cruciate ligament: Mild intrasubstance degeneration throughout the ACL. Majority of the fibe rs are still evident. Similar to the prior study from 07/28/2021. Posterior cruciate ligament: Intact. Medial collateral ligament: Ligament is intact. There is a small amount of edema adjacent to the prox imal ligament. Posterior lateral corner structures: Intact. Medial menisci: Increased T2 signal involving a large portion of the posterior horn has progressed si nce the prior examination. No definite extension to an articular surface. Lateral meniscus: Intact. Normal signal, size and shape. Extensor mechanism: Distal quadriceps tendon and patellar tendons are intact. Fluid and soft tissue: Moderate to large joint effusion is new since the prior examination. Soft tiss ue edema along the anterior knee and along the medial femoral condyle and MCL. Moderate-sized Levine's cyst is new since the prior study. Cyst extends over a length of greater than 4 cm. Osseous and articular structures: Patellofemoral compartment: Normal position of the patella. Cartilage is well preserved. Normal marro w signal in the patella. Medial compartment: Very mild narrowing of the medial compartment. Surface irregularity involving the cartilage of the femoral condyle towards the intercondylar notch. New marrow edema in the anterior m edial femoral condyle. No fracture. Lateral compartment: Well-preserved joint space and cartilage. No fracture or marrow edema. MR/MR knee RT wo con* [id number] IMPRESSION: 1. New since 07/28/2021 is a moderate to large joint effusion. 2. New 4 cm Levine's cyst. 3. New marrow edema anterior medial femoral condyle. No fracture. 4. Intrasubstance degeneration in the ACL is similar to the prior examination. No full-thickness tear. 5. Soft tissue edema along the anterior knee and along the MCL. 6. Mild progression of intrasubstance degeneration posterior horn medial menis cus. No definite tear.
== END 2022-02-02 06:35 | disposition home or self-care (01) ==
LOC: RAD 06:35
PROVIDERS: PCP Emergency Medicine Emergency Medical Services; Visit Provider Orthopaedic Surgery
DX: M25.461 Effusion, right knee (principal); M71.21 Synovial cyst of popliteal space [Baker], right knee; R60.0 Localized edema
CPT/HCPCS: 73721

== ENCOUNTER → 2022-02-03 10:47 | Outpatient (BNVA) | payer OTHER, SELFPAY | PROVIDERS: PCP Emergency Medicine Emergency Medical Services; Visit Provider Internal Medicine Pulmonary Disease | DX: R13.10 Dysphagia, unspecified (principal); R06.02 Shortness of breath; R06.00 Dyspnea, unspecified; J69.0 Pneumonitis due to inhalation of food and vomit; Z91.89 Other specified personal risk factors, not elsewhere classified; R91.8 Other nonspecific abnormal finding of lung field; U07.0 Vaping-related disorder; F17.290 Nicotine dependence, other tobacco product, uncomplicated; G47.33 Obstructive sleep apnea (adult) (pediatric) | CPT/HCPCS: 99214 ==

== ENCOUNTER → 2022-02-12 10:09 | Outpatient (BNVA) | payer OTHER, SELFPAY | PROVIDERS: PCP Emergency Medicine Emergency Medical Services; Visit Provider Orthopaedic Surgery | DX: M17.11 Unilateral primary osteoarthritis, right knee (principal) | CPT/HCPCS: 20610; 99213; J0702; J3490 ==

== ENCOUNTER 2022-02-22 06:00 | Outpatient (RCR) | payer OTHER, SELFPAY | END 2022-03-12 23:59 | disposition home or self-care (01) | LOC: SST 06:00 | PROVIDERS: PCP Emergency Medicine Emergency Medical Services; Visit Provider Emergency Medicine Emergency Medical Services | DX: R13.10 Dysphagia, unspecified (principal) | CPT/HCPCS: 92610 ==

== ENCOUNTER → 2022-04-22 12:23 | Outpatient (BNVA) | payer MEDICAID, SELFPAY | PROVIDERS: PCP Emergency Medicine Emergency Medical Services; Visit Provider Registered Nurse Neonatal Intensive Care | DX: J02.9 Acute pharyngitis, unspecified (principal); J06.9 Acute upper respiratory infection, unspecified | CPT/HCPCS: 87071; 87880 ==

== ENCOUNTER → 2022-04-28 14:20 | Outpatient (BNVA) | payer MEDICAID, SELFPAY | PROVIDERS: PCP Emergency Medicine Emergency Medical Services; Visit Provider Registered Nurse Neonatal Intensive Care | DX: R50.9 Fever, unspecified (principal); J06.9 Acute upper respiratory infection, unspecified | CPT/HCPCS: 87400 ==

== ENCOUNTER → 2022-08-06 09:25 | Outpatient (BNVA) | payer MEDICAID, SELFPAY | PROVIDERS: PCP Emergency Medicine Emergency Medical Services; Visit Provider Internal Medicine Pulmonary Disease | DX: R06.00 Dyspnea, unspecified (principal); R91.8 Other nonspecific abnormal finding of lung field; J69.0 Pneumonitis due to inhalation of food and vomit; R13.10 Dysphagia, unspecified; Z91.89 Other specified personal risk factors, not elsewhere classified; U07.0 Vaping-related disorder | CPT/HCPCS: 99214 ==

== ENCOUNTER 2022-08-30 08:19 | Outpatient (CLI) | payer MEDICAID, SELFPAY ==
--- NOTE | 2022-08-30 08:30 | FL_ITS ---
WS: [email or web address] Modified barium swallow, 08/30/2022 Clinical Data: Trouble swallowing foods and liquids, occasional stickiness Comparison: None. Fluoroscopy time: 2min [id number] # of spot films: 0 Findings: The patient ingested the material in the past normally into the hypopharynx on the oral pharynx. Ther e is no aspiration or penetration. There was delay in the passage of material from the esophagus into the stomach. FL/FL barium swallow modifd [id number] Impression: 1. Normal oral and hypopharyngeal function. 2. Delay in passing material in the special barium tablet from the distal esoph solo into the stomach.
== END 2022-08-30 08:20 | disposition home or self-care (01) ==
LOC: RAD 08:20
PROVIDERS: PCP Emergency Medicine Emergency Medical Services; Visit Provider Internal Medicine Pulmonary Disease
DX: R13.10 Dysphagia, unspecified (principal); Z91.89 Other specified personal risk factors, not elsewhere classified
CPT/HCPCS: 74230; 92611; 99214

== ENCOUNTER 2022-08-31 08:11 | Outpatient (CLI) | payer OTHER, SELFPAY ==
[2022-08-31 08:25] VITALS: PULSE 83; RESP 18; O2SAT 98
[2022-08-31] MEDS: albuterol 2.5 mg/3 mL Neb INHALATION (08:28)
[2022-08-31 08:29] VITALS: PULSE 85
== END 2022-08-31 08:12 | disposition home or self-care (01) ==
LOC: RT 08:13
PROVIDERS: PCP Emergency Medicine Emergency Medical Services; Visit Provider Internal Medicine Pulmonary Disease
DX: R06.00 Dyspnea, unspecified (principal)
CPT/HCPCS: 94060; 94726; 94729; J7613

== ENCOUNTER 2022-09-08 12:06 | Outpatient (CLI) | payer OTHER, SELFPAY ==
[2022-09-08 13:19] LABS: Erythrocyte Sedimentation Rate 56 mm/hr (0-10)
[2022-09-08 13:25] LABS: C Reactive Protein 16.9 mg/L (0.0-4.9); Creatine Phosphokinase 28 U/L (39-308)
[2022-09-09 11:19] LABS: Centromere B Antibody <1.0 NEG AI (<1.0 NEG); SS A Ro Sjogrens Antibody <1.0 NEG AI (<1.0 NEG); SS-B/LA IGG <1.0 NEG AI (<1.0 NEG); Sm/RNP Antibody <1.0 NEG AI (<1.0 NEG)
[2022-09-09 12:50] LABS: Cyclic Citrullinated Peptide <16 UNITS
[2022-09-09 15:59] LABS: Anti-Nuclear Antibody Screen NEGATIVE (NEGATIVE)
[2022-09-09 16:49] LABS: Anti-Double Strand DNA AB <1 IU/mL; Smith Antibody <1.0 NEG AI (<1.0 NEG)
[2022-09-10 12:28] LABS: Aldolase 4.4 U/L (< OR = 8.1)
[2022-09-10 21:29] LABS: Myositis EJ AB <11 SI (<11); Myositis JO-1 AB <11 SI (<11); Myositis MDA-5 AB <11 SI (<11); Myositis MI-2 Alpha AB <11 SI (<11); Myositis MI-2 Beta AB <11 SI (<11); Myositis NXP-2AB <11 SI (<11); Myositis OJ AB <11 SI (<11); Myositis PL-12 AB <11 SI (<11); Myositis PL-7 AB <11 SI (<11); Myositis SRP AB <11 SI (<11); Myositis TIF-1y AB <11 SI (<11)
== END 2022-09-08 12:07 | disposition home or self-care (01) ==
LOC: LAB 12:08
PROVIDERS: PCP Emergency Medicine Emergency Medical Services; Visit Provider Internal Medicine Pulmonary Disease
DX: J84.9 Interstitial pulmonary disease, unspecified (principal); R06.00 Dyspnea, unspecified
CPT/HCPCS: 36415; 82085; 82550; 84182; 85651; 86038; 86140; 86200; 86225; 86235; 86431

== ENCOUNTER → 2022-09-16 08:35 | Outpatient (BNVA) | payer OTHER, SELFPAY | PROVIDERS: PCP Emergency Medicine Emergency Medical Services; Visit Provider Thoracic Surgery (Cardiothoracic Vascular Surgery) | DX: J84.9 Interstitial pulmonary disease, unspecified (principal); Z87.891 Personal history of nicotine dependence; Z79.82 Long term (current) use of aspirin | CPT/HCPCS: 99203 ==

== ENCOUNTER 2022-09-23 07:39 | Outpatient (CLI) | payer OTHER, SELFPAY ==
--- NOTE | 2022-09-23 08:00 | CTR_ITS ---
PROCEDURE INFORMATION: Exam: CT Chest Without Contrast; Diagnostic Exam date and time: 09/23/2022 8:18 AM Age: 51 years old Clinical indication: Abnormal findings; Abnormal pulmonary function test; Patient HX: Pre-op bronchopscopy (axials on routine chest in 0.5x0.5 for ion bronch) interstitial lung disease; Additional info: Restricitve pattern on pfts; Exertional dyspnea - suspectild, high resolution CT TECHNIQUE: Imaging protocol: Diagnostic computed tomography of the chest without contrast. Radiation optimization: All CT scans at this facility use at least one of these dose optimization techniques: automated exposure control; mA and/or kV adjustment per patient size (includes targeted exams where dose is matched to clinical indication); or iterative reconstruction. REPORTING DATA: Count of CT and Cardiac NM exams in prior 12 months: This patient has received [address] and 0 known cardiac nuclear medicine studies in the 12 months prior to the current study. COMPARISON: CT chest con [id number] 11/20/2021 2:16 PM RADIATION DOSE METRICS: Total DLP (mGy-cm): 2154.83 FINDINGS: Lungs: Patchy minimal right lung field ground-glass airspace opacities, less prominent compared to prior exam may reflect a chronic infectious or inflammatory process, interstitial fibrotic changes are also a consideration. Pleural spaces: Unremarkable. No pneumothorax. No pleural effusion. Heart: Unremarkable. No cardiomegaly. No pericardial effusion. Coronary arteries: Coronary artery atherosclerotic calcifications. Lymph nodes: Unremarkable. No enlarged lymph nodes. Vasculature: Main pulmonary artery is somewhat prominent which can be a finding of chronic pulmonary hypertension. Gallbladder and bile ducts: Cholecystectomy. Bones/joints: Unremarkable. No acute fracture. Soft tissues: Unremarkable. CT/CT chest wo con [id number] IMPRESSION: 1. Patchy minimal right lung field ground-glass airspace opacities, less prominent compared to prior exam may reflect a chronic infectious or inflammatory process, interstitial fibrotic changes are also a consideration. 2. Cholecystectomy. 3. Main pulmonary artery is somewhat prominent which can be a finding of chronic pulmonary hypertension. 4. Coronary artery atherosclerotic calcifications.
== END 2022-09-23 07:40 | disposition home or self-care (01) ==
PROVIDERS: PCP Emergency Medicine Emergency Medical Services; Visit Provider Internal Medicine Pulmonary Disease
DX: J84.9 Interstitial pulmonary disease, unspecified (principal); R06.00 Dyspnea, unspecified; I25.10 Atherosclerotic heart disease of native coronary artery without angina pectoris; Z90.49 Acquired absence of other specified parts of digestive tract
CPT/HCPCS: 71250

== ENCOUNTER 2022-09-28 10:27 | Inpatient (IN) | payer OTHER, SELFPAY ==
[2022-09-23 08:49] VITALS: BMI 37.3
[2022-09-23 09:17] LABS: Basophils % 0.6 %; Eosinophils # 0.1 10^3/uL (0.0-0.8); Eosinophils % 1.8 %; Hemoglobin 11.7 g/dL (11.7-16.6); Lymphocytes # 2.2 10^3/uL (0.8-4.8); Lymphocytes % 34.6 %; Mean Corpuscular HGB Conc 31.6 g/dL (30.0-36.0); Mean Corpuscular Hemoglobin 25.9 pg (28.0-34.0); Mean Platelet Volume 10.4 fL (7.4-10.4); Monocytes # 0.4 10^3/uL (0.2-0.9); Monocytes % 5.8 %; Neutrophils # 3.54 10^3/uL (1.8-7.7); Neutrophils % 56.7 %; Nucleated Red Blood Cells % 0 %; Platelet Count 229 10^3/cmm (130-400); Red Blood Count 4.51 10^6/uL (4.1-5.3); Red Cell Distribution Width 13.3 % (12.1-15.1); White Blood Count 6.2 10^3/uL (4.0-10.0)
[2022-09-23 09:38] LABS: Alanine Aminotransferase 8 U/L (0-41); Alkaline Phosphatase 82 U/L (40-130); Anion Gap 14.7 (5-19); Aspartate Amino Transferase 12 U/L (0-40); Blood Urea Nitrogen 11 mg/dL (6-20); Calcium 8.9 mg/dL (8.5-10.5); Carbon Dioxide 27 mmol/L (22-29); Chloride 99 mmol/L (98-107); Globulin 3.7 g/dL (1.3-4.6); Glomerular Filtration Rate 89.3 mL/min (90-130); Glucose 161 mg/dL (65-115); Osmolality Calculated 287 mOsm/kg (285-295); Potassium 3.7 mmol/L (3.5-5.1); Sodium 137 mmol/L (136-145); Total Bilirubin 0.3 mg/dL (0.15-1.2); Total Protein 7.7 g/dL (6.6-8.7)
--- NOTE | 2022-09-23 14:31 | ANES.PREANE2 ---
Pre-Anesthetic Assessment Height/Weight: Height 1.68 m Weight 104.78 kg Operation Date: 09/28/22 08:55 Proposed Procedures p VATS Video Assisted Thorascopy 11036,Z91.89(Not Applicable) - Hollis Palma MD Familial anesthetic complications: none Was Beta George taken within 24 hours: Yes Was Clonidine taken within 24 hours: N/A Social Tobacco (quit in 2018) and No alcohol Exam alert, oriented x 3 and regular rate & rhythm Airway Submandibular: within normal limits Cervical ROM: Other (some extension limitation from previous surgery) Mallampati: Class II Dentition: full Pulmonary Chronic Obstructive Pulmonary Disease and Shortness of Breath Restrictive lung dz CV/HEM Hypertension Metabolic Hyperlipidemia and Morbid Obesity Neuropsych Anxiety and Depression Anesthetic Plan ASA status: 3 Anesthesia: General Other: Discussed thoracic epidural Medications/Allergies Home Medications Medication Instructions Recorded Confirmed Last Taken Type gabapentin 800 mg tablet 800 mg PO TID PRN Pain 08/14/20 09/23/22 09/22/22 History acetaminophen 500 mg tablet 1,000 mg PO Q4H PRN Pain 05/13/21 09/23/22 09/22/22 History aspirin 81 mg tablet,delayed 81 mg PO DAILY 05/13/21 09/23/22 09/22/22 History release baclofen 20 mg tablet 20 mg PO BID PRN Muscle Spasm 05/13/21 09/23/22 09/22/22 History bupropion HCl 150 mg 24 hr tablet, 150 mg PO QAM 05/13/21 09/23/22 09/22/22 History extended release doxepin 50 mg capsule 100 mg PO BEDTIME 05/13/21 09/23/22 09/22/22 History mirtazapine 30 mg tablet 60 mg PO BEDTIME 05/13/21 09/23/22 09/22/22 History trazodone 50 mg tablet 25 mg PO BID [place] med list has 25mg 05/13/21 09/23/22 09/22/22 History qid prn-pt states he just takes 25mgbid ziprasidone HCl 80 mg capsule 80 mg PO BID 05/13/21 09/23/22 09/22/22 History olanzapine 10 mg disintegrating 10 mg PO .HS 08/24/21 09/23/22 09/22/22 History tablet spectrum AFO #1 ea 08/26/21 09/23/22 09/22/22 Rx oxycodone-acetaminophen 7.5 mg-325 1 tab PO Q4H PRN pain 7 days #28 09/10/21 09/23/22 09/22/22 Rx mg tablet (Percocet) tabs diclofenac sodium 1 % topical gel 2 g topical QID #100 grams 10/22/21 09/23/22 09/22/22 Rx (Voltaren Arthritis Pain) albuterol sulfate 90 mcg/actuation 2 puff inhalation Q6H PRN 12/02/21 09/23/22 09/22/22 History aerosol inhaler Shortness Of Breath tiotropium bromide 2.5 2 puff inhalation DAILY #4 grams 12/24/21 09/23/22 09/22/22 Rx mcg/actuation mist for inhalation (Spiriva Respimat) atorvastatin 40 mg tablet 40 mg PO DAILY #90 tabs 01/28/22 09/23/22 09/22/22 Rx metoprolol succinate 50 mg 50 mg PO QAM #90 tabs 01/28/22 09/23/22 09/22/22 Rx tablet,extended release 24 hr nitroglycerin 0.4 mg sublingual 0.4 mg sublingual Q5M PRN chest 01/28/22 09/23/22 09/22/22 Rx tablet pain #30 tabs Allergies Allergy/AdvReac Type Severity Reaction Status Date / Time No Known Allergies Allergy Verified 09/16/22 08:46 PFSH Anesthesia Medical History Acute prostatitis GERD (gastroesophageal reflux disease) GERD (gastroesophageal reflux disease) Hyperlipidemia Hypertension Psychiatric care Vomiting Surgical History H/O wrist surgery History of ankle surgery History of elbow surgery History of elbow surgery History of laparoscopic cholecystectomy History of neck surgery History of skin graft Family History Father Heart attack Mother Heart disease Cancer Denies family history of Anesthesia complication Bleeding disorder Social History Smoking and tobacco status: former smoker Quit status (tobacco): has quit using tobacco Year quit tobacco: 2016 cigarettes; 2021elec Former quit date comment: 1ppd x 10 years; started vaping when quit cigarettes Second hand smoke exposure: No Alcohol intake: never Data Anesthesia 09/23/22 09:00 09/23/22 09:00 Short CBC 09/23/22 Range/Units 09:00 WBC 6.2 (4.0-10.0) 10^3/uL Hgb 11.7 (11.7-16.6) g/dL Hct 37.0 L (42.0-52.0) % MCV 82.0 (80-94) fl Plt Count 229 (130-400) 10^3/cmm Neut % (Auto) 56.7 % Neut # (Auto) 3.54 (1.8-7.7) 10^3/uL BMP 09/23/22 09:00 Sodium 137 Potassium 3.7 Chloride 99 Carbon Dioxide 27 BUN 11 Creatinine 0.9 Glucose 161 H Calcium 8.9 Liver Function 09/23/22 Range/Units 09:00 Total Bilirubin 0.3 (0.15-1.2) mg/dL AST 12 (0-40) U/L ALT 8 (0-41) U/L Alkaline Phosphatase 82 (40-130) U/L Albumin 4.0 (3.5-5.2) g/dL Cardiac Studies: Sestamibi Stress Test (Cardiology) 07/23/21
[2022-09-28] VITALS (14 sets, daily range): BP systolic 126–171; BP diastolic 68–98; PULSE 71–112; RESP 15–19; TEMP 36.6–37; O2SAT 89–97; BMI 37.3
[2022-09-28] MEDS: sodium chloride 0.9% 1,000 ML 30 ML IV (05:44)
[2022-09-28 06:10] LABS: Add Urine Microscopic? NO; Charge for UA Resulting for Rev
[2022-09-28 06:11] LABS: Basophils # 0.1 10^3/uL (0.0-0.1); Basophils % 0.9 %; Eosinophils # 0.1 10^3/uL (0.0-0.8); Eosinophils % 1.5 %; Hematocrit 37.5 % (42.0-52.0); Hemoglobin 12.3 g/dL (11.7-16.6); Lymphocytes # 2.5 10^3/uL (0.8-4.8); Mean Corpuscular HGB Conc 32.8 g/dL (30.0-36.0); Mean Corpuscular Hemoglobin 26.2 pg (28.0-34.0); Mean Corpuscular Volume 79.8 fl (80-94); Mean Platelet Volume 10.1 fL (7.4-10.4); Monocytes # 0.4 10^3/uL (0.2-0.9); Monocytes % 6.1 %; Nucleated Red Blood Cells % 0 %; Platelet Count 217 10^3/cmm (130-400); White Blood Count 6.6 10^3/uL (4.0-10.0)
[2022-09-28 06:13] LABS: Bilirubin Urine Neg (Negative); Blood Urine Neg (Negative); Glucose Urine UA Norm (Normal); Ketones Urine Negative (Negative); Leukocyte Esterase Urine Negative (Negative); Nitrate Urine Negative (Negative); Protein Urine Neg (Negative); Specific Gravity, Urine 1.015 (1.005-1.030); Urine Appearance Clear (CLEAR); Urine Color Light yellow (Yellow); Urobilinogen Urine Norm (Negative); pH Urine 6 (5-7)
[2022-09-28 06:23] LABS: INR 1.02 (0.8-1.2)
[2022-09-28 06:28] LABS: Anion Gap 14.7 (5-19); Blood Urea Nitrogen 7 mg/dL (6-20); Calcium 8.9 mg/dL (8.5-10.5); Carbon Dioxide 28 mmol/L (22-29); Chloride 98 mmol/L (98-107); Glucose 124 mg/dL (65-115); Osmolality Calculated 283 mOsm/kg (285-295); Potassium 3.7 mmol/L (3.5-5.1); Sodium 137 mmol/L (136-145)
--- NOTE | 2022-09-28 06:30 | W.PM.OPSUD ---
Surgery/Procedure H&P Update DATE OF PROCEDURE: September 28, 2022 DATE H&P PERFORMED: 09/16/22 H&P UPDATE INFORMATION: I have reviewed H&P completed within last 30 days, I have examined patient prior to procedure and No changes to prior documentation CHANGES TO PREVIOUS DOCUMENTATION: I have again conferred with Mr. Harris and met his sister, who is a nurse practitioner. Rationale for thoracoscopic lung biopsy with carefully and frankly discussed to assist with diagnosis. General conduct of the procedure were discussed as well as risks were again reviewed. All questions answered. They wish to proceed. As the most recent CT scan reveals more abnormalities on the right, we will plan to proceed with right thoracoscopy. He has been appropriately marked. We will plan for early convalescence in the ICU for careful monitoring. I have encouraged the use of an epidural catheter to assist with pain management. PREOP DIAGNOSIS: pulmonary fibrosis PLANNED PROCEDURE: Operation Date: 09/28/22 07:00 Proposed Procedures p VATS Video Assisted Thorascopy 96140,Z91.89(Not Applicable) - Hollis Palma MD
[2022-09-28] MEDS: midazolam 1 mg/mL INJ 2 mL 2 MG IVP (06:55)
[2022-09-28] MEDS: ceFAZolin 2,000 MG in sodium chloride 0.9% (plus) 50 ML 100 MG IV (07:08)
--- NOTE | 2022-09-28 08:28 | P.ANESUD_ITS ---
Pre-Anesthetic Update Pre-Anesthetic Assessment: Date of Surgery/Procedure: 09/28/22 Preop Germania gnosis: pulmonary fibrosis Proposed Procedure: Operation Date: 09/28/22 07:00 Proposed Procedures p VATS Video Assisted Thorascopy 69940,Z91.89(Not Applicable) - Hollis Palma MD Any changes to Pre-Anesthetic Assessment?: No Last Intake: Intake Last Liquid Date 09/27/22 Last Liquid Time 20:00 Last Solid Date 09/27/22 Last Solid Time 18:30 Labs Last 48hrs: Short CBC 09/28/22 Range/Units 05:45 WBC 6.6 (4.0-10.0) 10^3/ uL Hgb 12.3 (11.7-16.6) g/dL Hct 37.5 L (42.0-52.0) % MCV 79.8 L (80-94) fl Plt Count 217 (130-400) 10^3/c mm Neut % (Auto) 53.0 % Neut # (Auto) 3.50 (1.8-7.7) 10^3/u L BMP 09/28/22 05:45 Sodium 137 Potassium 3.7 Chloride 98 Carbon Dioxide 28 BUN 7 Creatinine 0.9 Glucose 124 H Calcium 8.9 Urine 09/28/22 Range/Units 05:30 Urine Color Light yellow (Yellow) Urine Appearance Clear (CLEAR) Urine pH 6 (5-7) Ur Specific Gravit y 1.015 (1.005-1.030) Urine Protein Neg (Negative) Urine Glucose (UA) Norm (Normal) Urine Ketones Negative (Negative) Urine Nitrate Negative (Negative) Urine Bilirubin Neg (Negative) Ur Leukocyte Polina ase Negative (Negative) Blood Bank 09/28/22 05:45 Blood Type O Positive Rho(D) Type Positive Antibody Screen Negative Coags 09/28/22 05:45 PT 13.70 INR 1.02 Vitals: Temperature 97.8 F 09/28/22 05:39 Temperature Source Temporal Artery S can 09/28/22 05:39 Pulse Rate 71 09/28/22 05:39 Respiratory Rate 16 09/28/22 05:39 Blood Pressure 171/98 09/28/22 05:39 Blood Pressure Ramila n 122 09/28/22 05:39 Pulse Oximetry 96 09/28/22 05:39 Oxygen Delivery Me thod Room Air 09/28/22 05:39 Exam: Pre-Anes Outpt Exam: alert, oriented x 3, clear to auscultation bilaterally and regular rate & rhythm Cardiac Studies: Sestamibi Stress Test (Cardiology) 07/23 Anesthesia Procedures Epidural: Time Out Performed: Yes Consents Signed: Procedure Consent Consent: requested by attending/covering physician, from patient, risks and benefits reviewed and patient agrees to proceed Thoracic Level: T9-T10 Epidural position: sitting Epidural procedure: sterile prep of area, 1% lidocaine to numb the area, 18 g needle, neg for paresthesia, test dose given, 1.5% xylocaine 1:200k epi, placed PCEA, no systemic response, sterile dressing applied and 0.2% Ropiavacaine @ mls/hr (6) Additional Comments: YAHAIRA at 5cm, cath at 10cm, patient tolerated well
[2022-09-28] MEDS: lidocaine 1% INJ 10 mL (per mL) XX ×2 (08:33→08:34)
[2022-09-28] MEDS: ceFAZolin 1,000 mg SDV 1000 MG IRRIGATION ×2 (08:35→11:10)
--- NOTE | 2022-09-28 10:23 | P.OP_ITS ---
Operative Report Date of procedure: September 28, 2022 Pre-op diagnosis: Preop Diagnosis pulmonary fibrosis Post-op diagnosis: same Procedure done: Right thoracoscopy with wedge resection right upper lobe Specimens removed/disposition: Wedge resection right upper lobe Surgeon: Hollis Palma Anesthesia: General Estimated blood loss (mL): 50 Complications: None Findings: Generalized anthracosis. Visceral and parietal pleura unremarkable. No adenopathy. No masses. Condition: stable Disposition: ICU Brief History: Mr. Harris is a 52-year-old gentleman referred to our service by Dr. Liu for surgical biopsy during continued evaluations for a 2-year history of progressive dyspnea. Prior investigations by Dr. Liu include bronchoscopy along with endobronchial ultrasound-guided biopsy of hilar and mediastinal lymph nodes along with needle aspiration and cytology of station 7 lymph node. All results returned negative. He has PFTs consistent with restrictive pattern. Concern for sarcoidosis versus primary pulmonary fibrosis have been entertained. Surgical biopsies been requested. I have previously examined Mr. Harris and have reviewed his most recent high-resolution CT scan. Rationale for surgical biopsy was frankly discussed. Details and risk of procedure were carefully reviewed. Appropriate consents have been reviewed and signed. Procedure: Mr. Harris was taken to the operating room and underwent general endotracheal anesthesia after appropriate invasive monitoring lines and a thoracic epidural catheter were placed. Double-lumen endotracheal tube was placed and confirmed by bronchoscopy. Patient was then placed in the left lateral decubitus position over an axillary roll and protective padding. He was secured and then sterilely prepped and draped. 3 thoracoscopic ports were placed. One in the posterior axillary line in the sixth intercostal space. Another anteriorly in the eighth intercostal space. Another more posteriorly in the fifth intercostal space. Camera was inserted in the entire right hemithorax was carefully inspected and intraoperative photos taken. Initial thorascopic inspection revealed generalized anthracosis which was moderate in all 3 lobes. There was no evidence for mass or pleural studding or substantial adenopathy. There were mild adhesions between the upper lobe and middle lobe. Next, the anterior lateral aspect of the right upper lobe was isolated and subsequently a generous wedge biopsy was performed utilizing an endoscopic stapler with buttressed yi. Specimen was then removed. I conferred with my colleague, Dr. Liu by phone. He recommend the entire specimen be sent for permanent pathologic analysis. A 28 Upper Sorbian pleural chest tube was placed apically and posteriorly and secured and connected to Pleur-evac suction. The right lung was reinflated under fluoroscopic observation with full reexpansion. Ports were removed. Sponge and needle count was correct. Thoracoscopic ports were closed with 3-0 and 4-0 Vicryl suture. Sterile dressings were applied. Patient was returned to supine position where he was awakened and extubated. Mr. Harris was then taken to the ICU in stable condition. Chest x-ray is pending. I did confer with his sister and mother at the completion of the procedure.
--- NOTE | 2022-09-28 10:29 | XR_ITS ---
WS: [id number] Portable AP upright chest, 09/28/2022 Clinical Data: (upon arrival to ICU) s/p lung bx. Right upper lobe Comparison: None. Findings: No nodules, masses or effusions are seen. There is a right chest tube which ends in the med ial aspect of the superior right thorax. The heart is slightly enlarged. The pulmonary vascularity is not increased. No pneumonia or pneumothorax is seen. Monitor leads are on the chest wall. There is a n anterior cervical disc fusion. XR/XR chest 1V portable [id number] Impression: 1. Cardiomegaly. 2. Satisfactory position of right chest tube without right pneumothorax.
[2022-09-28] MEDS: morphine 4 mg/mL SDV 1 mL 2 MG IVP ×5 (10:40→23:45)
[2022-09-28] MEDS: ketorolac 30 mg/mL INJ IVP ×2 (11:27→19:04)
[2022-09-28] MEDS: ipratropium-albuterol 3 mL Neb INHALATION ×3 (12:57→20:20)
--- NOTE | 2022-09-28 14:49 | ANE.PACU2 ---
Inpatient post-anesthesia follow up: Airway intact: Yes Vital signs: Temperature 97.8 F Pulse Rate 92 Respiratory Rate 17 Blood Pressure 171/98 Pulse Oximetry 97 Oxygen Delivery Me thod Nasal Cannula Oxygen Flow Rate 3 Fraction of Inspir ed Oxygen Hydration adequate: Yes Nausea and vomiting: No Pain level: 2 Mental status: Baseline Additional Comments: Patient c/o some pain, but appears comfortable
[2022-09-28] MEDS: ziprasidone hcl 40 mg Capsule 80 MG PO (17:54)
[2022-09-28] MEDS: trazodone 50 mg Tablet 25 MG PO (18:00)
[2022-09-28] MEDS: budesonide 0.5 mg/2 mL Neb INHALATION (20:20)
[2022-09-28] MEDS: doxepin 50 mg Capsule 100 MG PO (20:37)
[2022-09-28] MEDS: diphenhydrAMINE 25 mg Capsule PO (20:38)
[2022-09-28] MEDS: OLANZapine 10 mg ODT PO (20:38)
[2022-09-28] MEDS: mirtazapine 30 mg Tablet 60 MG PO (20:38)
[2022-09-29] VITALS (33 sets, daily range): BP systolic 115–209; BP diastolic 59–102; PULSE 68–96; RESP 10–22; TEMP 35–37.6; O2SAT 91–97
[2022-09-29] MEDS: morphine 4 mg/mL SDV 1 mL 2 MG IVP ×5 (01:22→17:02)
[2022-09-29] MEDS: ketorolac 30 mg/mL INJ IVP ×3 (03:48→23:05)
[2022-09-29 03:58] LABS: Basophils % 0.2 %; Hemoglobin 11.4 g/dL (11.7-16.6); Lymphocytes # 1.4 10^3/uL (0.8-4.8); Lymphocytes % 11.8 %; Mean Corpuscular HGB Conc 31.7 g/dL (30.0-36.0); Mean Corpuscular Hemoglobin 25.6 pg (28.0-34.0); Mean Corpuscular Volume 80.7 fl (80-94); Mean Platelet Volume 10.1 fL (7.4-10.4); Monocytes # 0.8 10^3/uL (0.2-0.9); Monocytes % 7.2 %; Neutrophils # 9.25 10^3/uL (1.8-7.7); Neutrophils % 80.3 %; Nucleated Red Blood Cells % 0 %; Platelet Count 228 10^3/cmm (130-400); Red Blood Count 4.46 10^6/uL (4.1-5.3); Red Cell Distribution Width 13.4 % (12.1-15.1); White Blood Count 11.5 10^3/uL (4.0-10.0)
[2022-09-29 04:28] LABS: Anion Gap 12.4 (5-19); Blood Urea Nitrogen 13 mg/dL (6-20); Calcium 8.6 mg/dL (8.5-10.5); Carbon Dioxide 30 mmol/L (22-29); Chloride 99 mmol/L (98-107); Glucose 159 mg/dL (65-115); Osmolality Calculated 287 mOsm/kg (285-295); Potassium 4.4 mmol/L (3.5-5.1); Sodium 137 mmol/L (136-145)
[2022-09-29] MEDS: buPROPion XL (24 HR) 150 mg Tablet PO (05:07)
[2022-09-29] MEDS: metoprolol succinate ER (24 HR) 50 mg Tablet PO (05:07)
--- NOTE | 2022-09-29 05:30 | PC.NURSE ---
CT to [facility]: Dr. Palma on unit to see patient. New order to put CT to [facility].
--- NOTE | 2022-09-29 05:54 | PM.PN ---
Subjective Subjective: Postop day #1 status post right upper lobe wedge resection via thoracoscopy. Nurses report uneventful night other than complaining of the pain and requiring morphine. Was up in chair for evening meal. Sleeping on rounds this morning. Appears to be very comfortable. Vital signs are stable. Low chest tube output. No air leak noted. This morning's chest x-ray is still pending. Vitals/I&O/Wt Last Vital Signs Temp 98.6 F 09/29/22 05:17 Pulse 83 09/29/22 04:00 Resp 12 09/29/22 05:09 BP 133/65 09/29/22 04:00 Pulse Ox 96 09/29/22 05:09 O2 Del Method Nasal Cannula 09/29/22 04:00 O2 Flow Rate 2 09/29/22 04:00 09/28/22 09/28/22 09/29/22 14:59 22:59 06:59 Intake Total 400 / 400 1248 / 1648 300 / 1948 Output Total 1400 / 1400 941 / 2341 Balance 400 / 400 -152 / 248 -641 / -393 Weight last 48 hrs Weight 231 lb Physical Exam Chest: OTHER: Chest wall is stable. Surgical dressings are dry. Chest tube is in good position. Resp: COMMON NORMALS: normal respiratory effort, No retractions, No use of accessory muscles and clear to auscultation bilaterally AUSCULTATION: clear to auscultation bilaterally Cardio: COMMON NORMALS: regular rate, regular rhythm, S1 normal heart sound present and No murmurs present (Cardio) RATE: regular rate RHYTHM: regular rhythm HEART SOUNDS: S1 normal heart sound present Urinary Catheter Management: Graves: Cath Placed During This Visit: yes Reason for Continuing Indwelling Catheter: Accurate Measurement of Urinary Output in Critically Ill Patients Urinary Catheter Date of Insertion: 09/28/22 Urinary Catheter Time of Insertion: 08:00 Data 09/29/22 03:24 09/29/22 03:24 A&P Assessment and plan (1) Interstitial lung disease: Plan I will place chest tube to [facility] Out of bed frequently with ambulation. Increased use of incentive spirometer. We will DC thoracic epidural later today. We will tentatively plan to discontinue chest tube in the morning with plan for discharge tomorrow afternoon if remains stable. May transfer to [facility] when bed is available. Attestations Medical Necessity Statement*: Postop day #1 status post right thoracoscopy with wedge resection right upper lobe Coding Level of Care Code Acute Code for Chg Fwd Diagnoses Interstitial lung disease J84.9
--- NOTE | 2022-09-29 06:03 | PC.NURSE ---
PAC Pump: Attempted Demand doses: 49 Given demand doses: 23 *running total from initiation of PAC pump
[2022-09-29 07:11] LABS: Glucose Point of Care 179 mg/dL (70-110)
--- NOTE | 2022-09-29 08:08 | XR_ITS ---
WS: [id number] Portable AP upright chest, 09/29/2022 Clinical Data: follow up Comparison: Portable chest, 09/28/2022 Findings: No nodules, masses or effusions are seen. The heart is normal. The pulmonary vascularity is not increased. No pneumonia or pneumothorax is seen. Right chest tube remains in the same position. Monitor leads are on the chest wall. XR/XR chest 1V portable [id number] Impression: No change in right chest tube.
--- NOTE | 2022-09-29 08:38 | ANE.PACU2 ---
Inpatient post-anesthesia follow up: Airway intact: Yes Vital signs: Temperature 98.6 F Pulse Rate 78 Respiratory Rate 17 Blood Pressure 158/75 Pulse Oximetry 96 Oxygen Delivery Me thod Nasal Cannula Oxygen Flow Rate 2 Fraction of Inspir ed Oxygen Hydration adequate: Yes Nausea and vomiting: No Pain level: 4 Pain level: Appears comfortable, but asking for extra pain meds Mental status: Baseline Additional Comments: Taking good PO, site C/D/I
[2022-09-29] MEDS: pantoprazole DR 40 mg Tablet PO (08:40)
[2022-09-29] MEDS: oxyCODONE-APAP 5-325 mg Tablet PO ×3 (08:40→20:18)
[2022-09-29] MEDS: atorvastatin 40 mg Tablet PO (08:40)
[2022-09-29] MEDS: ziprasidone hcl 40 mg Capsule 80 MG PO ×2 (08:40→17:10)
[2022-09-29] MEDS: budesonide 0.5 mg/2 mL Neb INHALATION ×2 (09:16→20:02)
[2022-09-29] MEDS: ipratropium-albuterol 3 mL Neb INHALATION ×3 (09:17→20:02)
--- NOTE | 2022-09-29 13:39 | PM.MISC ---
Miscellaneous Note Purpose of Documentation: Epidural rd Note: Epidural removed with tip intact, site clean and dry.
[2022-09-29] MEDS: ceFAZolin 2,000 MG in sodium chloride 0.9% (plus) 50 ML 100 MG IV ×2 (15:38→23:07)
[2022-09-29] MEDS: OLANZapine 10 mg ODT PO (20:18)
[2022-09-29] MEDS: doxepin 50 mg Capsule 100 MG PO (20:18)
[2022-09-29] MEDS: mirtazapine 30 mg Tablet 60 MG PO (20:18)
[2022-09-30] VITALS (25 sets, daily range): BP systolic 97–186; BP diastolic 68–105; PULSE 68–90; RESP 12–27; TEMP 36.9; O2SAT 91–97
[2022-09-30] MEDS: morphine 4 mg/mL SDV 1 mL 2 MG IVP (01:22)
--- NOTE | 2022-09-30 05:39 | PC.NURSE ---
Patient refusing to wear BP cuff and sat monitor.
--- NOTE | 2022-09-30 06:00 | XRR_ITS ---
PROCEDURE INFORMATION: Exam: XR Chest Exam date and time: 09/30/2022 5:51 AM Age: 52 years old Clinical indication: Other: Chest tube; Prior surgery; Surgery date: 3-7 days post-operative; Additional info: Chest tube to [facility] for 24 hours TECHNIQUE: Imaging protocol: Radiologic exam of the chest. Views: 1 view. COMPARISON: CT chest con [id number] 09/23/2022 8:18 AM FINDINGS: Tubes, catheters and devices: Right chest tube tip is positioned at the apex. Lungs: There is no consolidation. Pleural spaces: No pneumothorax. No pleural effusion. Heart/Mediastinum: Cardiomediastinal contours are unremarkable. Bones/joints: Lower cervical fusion noted. XR/XR chest 1V portable [id number] IMPRESSION: No pneumothorax.
--- NOTE | 2022-09-30 06:12 | P.PN_ITS ---
Subjective Subjective: Postop day #2 status post right thoracoscopy with wedge resection right upper lobe. No complaints overnight. Vital signs are stable. [facility] to be fully inflated with chest tube in good position. No substantial effusion. Total chest tube output since placement 230 cc. Vitals/I&O/Wt Last Vital Signs Temp 98.7 F 09/29/22 14:00 Pulse 78 09/30/22 05:00 Resp 16 09/30/22 05:00 BP 181/78 09/30/22 01:00 Pulse Ox 95 09/29/22 23:00 O2 Del Method Room Air 09/29/22 21:00 O2 Flow Rate 2 09/29/22 04:00 09/29/22 09/29/22 09/30/22 14:59 22:59 06:59 Intake Total 750 / 750 490 / 1240 150 / 1390 Output Total 410 / 410 536 / 946 Balance 750 / 750 80 / 830 -386 / 444 Weight last 48 hrs Weight 231 lb Physical Exam Chest: OTHER: Dressings were changed. Thoracoscopic ports are clean, dry, and intact. No erythema or drainage. Chest tube was discontinued and occlusive dressing applied. Resp: COMMON NORMALS: normal respiratory effort, No retractions, No use of accessory muscles and clear to auscultation bilaterally AUSCULTATION: clear to auscultation bilaterally Cardio: COMMON NORMALS: regular rate, regular rhythm, S1 normal heart sound present and No murmurs present (Cardio) RATE: regular rate RHYTHM: regular rhythm HEART SOUNDS: S1 normal heart sound present Urinary Catheter Management: Graves: Cath Placed During This Visit: yes, but has since been removed by the nurse Reason for Continuing Indwelling Catheter: Decision to DC Catheter Urinary Catheter Date of Insertion: 09/28/22 Urinary Catheter Time of Insertion: 08:00 Date Urinary Catheter Removed: 09/29/22 Time Urinary Catheter Discontinued: 16:00 Data 09/29/22 03:24 09/29/22 03:24 A&P Assessment and plan (1) Interstitial lung disease: Postop day #2 status post right thoracoscopy with with wedge biopsy right upper lobe. Pathology pending. Chest tube has been discontinued. Plan: We will schedule for chest x-ray at 10 AM. If patient remained stable, will plan for discharge midday. Attestations Medical Necessity Statement*: Postop day #2 status post wedge biopsy right upper lobe Coding Level of Care Code Acute Code for Chg Fwd Diagnoses Interstitial lung disease J84.9
[2022-09-30] MEDS: oxyCODONE-APAP 5-325 mg Tablet PO ×2 (06:20→12:11)
[2022-09-30] MEDS: buPROPion XL (24 HR) 150 mg Tablet PO (06:21)
[2022-09-30] MEDS: ceFAZolin 2,000 MG in sodium chloride 0.9% (plus) 50 ML 100 MG IV (06:21)
[2022-09-30] MEDS: metoprolol succinate ER (24 HR) 50 mg Tablet PO (06:21)
--- NOTE | 2022-09-30 08:32 | PC.CHAP ---
Pastoral Care Encounter/Spiritual Assessment Type of Contact [] Declined training director visit [] Patient/Family/Request visit [] Outpatient visit [] Follow-up visit [] Physician referral [] Code/Alert []x Routine visit [] Staff referral [] Actively dying [] Patient sleeping [x] Family support [] [] Out of room [] Palliative care [] [] Receiving care in room [] Pre-surgical visit [] Trauma [] Long length of stay [] ICU visit [] Other: Relational/Emotional Strength x[] Patient feels connected with others/family/visitors/staff [] Distress [] Loneliness/isolation [] Abandonment Spirituality of Patient [x] Person of Geetha [] Attends Yazdanism of their Geetha []x Believes in Prayer [] Reads Bible or Jew materials [] There are Spiritual issues to be addressed Ticket Collector Interventions [x] Prayer [x] Active listening [x] Non-anxious presence [] Spiritual/emotional support [] Crisis/trauma care [] Spiritual counseling [] Bereavement support [] Provided bereavement packet [] Provided Bible/devotional materials [] Provided toy/stuffed animal, coloring book to patient or family member [] Provided Communion [] Anointing/Stonewall [] Salvation [x] Completed spiritual assessment [] Other: Impact on Illness or Injury [] Angry [] Fearful [] Anxious [] Often cries [] Exhaustion [] Unable to work [] Unable to attend jehovah's witness [] Unable to walk/stand [] Unable to read [] Unable to drive [] Unable to eat/drink [] Unable to sleep [] Unable to be with family [] Patient intubated [] Other: Summary Time spent with patient 10 min
[2022-09-30] MEDS: atorvastatin 40 mg Tablet PO (08:44)
[2022-09-30] MEDS: ziprasidone hcl 40 mg Capsule 80 MG PO (08:44)
[2022-09-30] MEDS: pantoprazole DR 40 mg Tablet PO (08:44)
[2022-09-30] MEDS: ketorolac 30 mg/mL INJ IVP (08:45)
[2022-09-30 09:15] LABS: Glucose Point of Care 157 mg/dL (70-110)
--- NOTE | 2022-09-30 10:00 | XRR_ITS ---
PROCEDURE INFORMATION: Exam: XR Chest Exam date and time: 09/30/2022 9:01 AM Age: 52 years old Clinical indication: Device placement; Other: Chest tube removal TECHNIQUE: Imaging protocol: Radiologic exam of the chest. Views: 1 view. COMPARISON: CR (CHEST, ) 09/30/2022 5:51 AM FINDINGS: Tubes, catheters and devices: Right chest tube has been removed. Lungs: There is no consolidation. There is linear density in the right upper lung along the course of the removed chest tube suggesting pleural or parenchymal scarring. Pleural spaces: There is no pleural effusion or pneumothorax. Heart/Mediastinum: Cardiomediastinal contours are unremarkable. Bones/joints: Lower cervical fusion noted. No acute fracture. XR/XR chest 1V portable [id number] IMPRESSION: No pneumothorax status post right chest tube removal.
[2022-09-30] MEDS: ipratropium-albuterol 3 mL Neb INHALATION (11:46)
[2022-09-30 12:42] LABS: Glucose Point of Care 126 mg/dL (70-110)
--- NOTE | 2022-09-30 13:27 | PC.NURSE ---
Dr Hollis Castro at [facility] notified of Oxycodone RX for discharge. Dr Castro states the ordered 24 tabs for 6 days an approved amount if Dr Palma deems necessary for pain management. Dr Palma notified and prescription remains the same. Kirti in pharmacy notified and will contact insurance.
--- NOTE | 2022-09-30 13:56 | P.DS_ITS ---
Discharge Providers Date of Admission: 09/28/22 10:27 Date of Discharge: September 30, 2022 Attending Provider at Admission: Hollis Palma MD Attending Provider at Discharge: Hollis Palma MD Primary Care Provider: Ortega Marquis DO Diagnoses at Discharge Discharge Diagnosis (1) Interstitial lung disease: Details from hospital stay: Mr. Harris is a 52-year-old gentleman referred to our service by Dr. Liu to consider surgical lung biopsy for suspected interstitial lung disease. He is undergone prior interventions by Dr. Liu including bronchoscopy as well as tra nsbronchial biopsies of the right middle lobe, endobronchial ultrasound-guided surveillance of hilar and mediastinal lymph nodes as well as needle aspiration of station #7 lymph node. No definitive diagnosis could be obtained following these maneuvers and he was therefore referred to our service to consider surgical biopsy. PFTs revealed a restrictive lung pattern. Rationale for lung Valery was carefully and frankly discussed. Appropriate consents were reviewed and signed. He was electively admitted on September 28 and underwent right thoracoscopy with wedge biopsy from the right upper lobe. Postoperatively, he convalesced in the ICU. Pain control was with oral and IV narcotic regimen along with thoracic epidural catheter. He had no airleak postop. He had low chest tube output. Chest x-ray remained clear. Chest tube been on waterseal for over 24 hours and chest tube was discontinued this morning. Chest x-ray obtained several hours after removal of the chest tube reveals the right lung to remain fully inflated without infiltrate or effusion. He has been tolerating a diet well. Pain has been under good control this afternoon with oral agents. Pathology returned: A.? Lung, right upper lobe , wedge resection: ? Chronic fibrosing interstitial lung disease; consistent with usual interstitial pneumonitis. ? Single focus of squamous metaplasia, measuring 3 mm (slide A5). ? Margins are uninvolved. ? No malignancy identified. He is discharged home today in stable condition. Status: Acute Reason for Visit Reason for Visit: Z91.89 Brief History: 52-year-old gentleman with restrictive lung pattern and increasing dyspnea suggestive of pulmonary fibrosis. Physical Exam Chest: OTHER: Surgical sites are clean and dry. Chest tube site is well approximated. Resp: COMMON NORMALS: normal respiratory effort, No use of accessory muscles and clear to auscultation bilaterally AUSCULTATION: clear to auscultation bilaterally Cardio: COMMON NORMALS: regular rate, regular rhythm, S1 normal heart sound present and No murmurs present (Cardio) RATE: regular rate RHYTHM: regular rhythm HEART SOUNDS: S1 normal heart sound present GI: COMMON NORMALS: Normal to inspection, nondistended, normoactive bowel sounds present and Soft to palpation PALPATION: Yes Soft to palpation Extremity: COMMON NORMALS: no clubbing, cyanosis or edema Urinary Catheter Management: Graves: Cath Placed During This Visit: yes, but has since been removed by the nurse Reason for Continuing Indwelling Catheter: Decision to DC Catheter Urinary Catheter Date of Insertion: 09/28/22 Urinary Catheter Time of Insertion: 08:00 Date Urinary Catheter Removed: 09/29/22 Time Urinary Catheter Discontinued: 16:00 Discharge Data Studies Completed and Pending Completed Studies During Hospitalization Category Date Time Status CXRP [XR chest 1V portable [id number]] Routine Exams 09/29/22 08:08 Completed XR chest 1V portable [id number] Routine Exams 09/28/22 10:29 Completed XR chest 1V portable [id number] Routine Exams 09/30/22 06:00 Completed XR chest 1V portable [id number] Routine Exams 09/30/22 10:00 Completed Pathology: Surgical [PTH] Routine Pth 09/28/22 09:59 Completed Pending at discharge Category Date Time Status ES surgery / GI images Routine Exams 09/28/22 Taken Leukocyte Reduced RBC Routine Lab 09/28/22 05:45 Results Type and Screen Routine Lab 09/28/22 05:45 Results Radiology Impressions Chest X-Ray 09/30/22 10:00 IMPRESSION: No pneumothorax status post right chest tube removal. Laboratory Results WBC 11.5 10^3/uL (4.0-10.0) H 09/29/22 03:24 RBC 4.46 10^6/uL (4.1-5.3) 09/29/22 03:24 Hgb 11.4 g/dL (11.7-16.6) L 09/29/22 03:24 Hct 36.0 % (42.0-52.0) L 09/29/22 03:24 MCV 80.7 fl (80-94) 09/29/22 03:24 MCH 25.6 pg (28.0-34.0) L 09/29/22 03:24 MCHC 31.7 g/dL (30.0-36.0) 09/29/22 03:24 RDW 13.4 % (12.1-15.1) 09/29/22 03:24 Plt Count 228 10^3/cmm (130-400) 09/29/22 03:24 MPV 10.1 fL (7.4-10.4) 09/29/22 03:24 Neut % (Auto) 80.3 % 09/29/22 03:24 Lymph % (Auto) 11.8 % 09/29/22 03:24 [place] % (Auto) 7.2 % 09/29/22 03:24 Eos % (Auto) 0.0 % 09/29/22 03:24 Baso % (Auto) 0.2 % 09/29/22 03:24 Neut # (Auto) 9.25 10^3/uL (1.8-7.7) H 09/29/22 03:24 Lymph # (Auto) 1.4 10^3/uL (0.8-4.8) 09/29/22 03:24 [place] # (Auto) 0.8 10^3/uL (0.2-0.9) 09/29/22 03:24 Eos # (Auto) 0.0 10^3/uL (0.0-0.8) 09/29/22 03:24 Baso # (Auto) 0.0 10^3/uL (0.0-0.1) 09/29/22 03:24 Nucleated RBC % (auto) 0 % 09/29/22 03:24 Nucleated RBCs # 0.0 /100WBC 09/29/22 03:24 PT 13.70 SECONDS (12.1-14.9) 09/28/22 05:45 INR 1.02 (0.8-1.2) 09/28/22 05:45 Sodium 137 mmol/L (136-145) 09/29/22 03:24 Potassium 4.4 mmol/L (3.5-5.1) 09/29/22 03:24 Chloride 99 mmol/L (98-107) 09/29/22 03:24 Carbon Dioxide 30 mmol/L (22-29) H 09/29/22 03:24 Anion Gap 12.4 (5-19) 09/29/22 03:24 BUN 13 mg/dL (6-20) 09/29/22 03:24 Creatinine 0.9 mg/dL (0.7-1.2) 09/29/22 03:24 GFR Calculation 89.0 mL/min (90-130) L 09/29/22 03:24 Glucose 159 mg/dL (65-115) H 09/29/22 03:24 POC Glucose 126 mg/dL (70-110) H 09/30/22 12:29 Calculated Osmolality 287 mOsm/kg (285-295) 09/29/22 03:24 Calcium 8.6 mg/dL (8.5-10.5) 09/29/22 03:24 Total Bilirubin 0.3 mg/dL (0.15-1.2) 09/23/22 09:00 AST 12 U/L (0-40) 09/23/22 09:00 ALT 8 U/L (0-41) 09/23/22 09:00 Alkaline Phosphatase 82 U/L (40-130) 09/23/22 09:00 Total Protein 7.7 g/dL (6.6-8.7) 09/23/22 09:00 Albumin 4.0 g/dL (3.5-5.2) 09/23/22 09:00 Globulin 3.7 g/dL (1.3-4.6) 09/23/22 09:00 Urine Color Light yellow (Yellow) 09/28/22 05:30 Urine Appearance Clear (CLEAR) 09/28/22 05:30 Urine pH 6 (5-7) 09/28/22 05:30 Ur Specific [place] 1.015 (1.005-1.030) 09/28/22 05:30 Urine Protein Neg (Negative) 09/28/22 05:30 Urine Glucose (UA) Norm (Normal) 09/28/22 05:30 Urine Ketones Negative (Negative) 09/28/22 05:30 Urine Blood Neg (Negative) 09/28/22 05:30 Urine Nitrate Negative (Negative) 09/28/22 05:30 Urine Bilirubin Neg (Negative) 09/28/22 05:30 Urine Urobilinogen Norm mg/dL (Negative) 09/28/22 05:30 Ur Leukocyte Esterase Negative (Negative) 09/28/22 05:30 Blood Type O Positive 09/28/22 05:45 Rho(D) Type Positive 09/28/22 05:45 Antibody Screen Negative 09/28/22 05:45 Crossmatch See Detail 09/28/22 05:45 Procedures Performed Right thoracoscopy with wedge biopsy right upper lobe on September 28, 2022 Vitals Last Vital Signs Temp 98.7 F 09/29/22 14:00 Pulse 76 09/30/22 11:48 Resp 18 09/30/22 12:11 BP 139/72 09/30/22 12:00 Pulse Ox 97 09/30/22 12:11 O2 Del Method Room Air 09/30/22 11:46 O2 Flow Rate 2 09/29/22 04:00 Discharge Plan Discharge Patient Disposition: Home Condition: Stable Prescriptions: New oxycodone-acetaminophen 5-325 mg Tablet 1 tab PO Q6H PRN (Reason: Moderate To Severe Pain) Qty: 24 0RF Continued gabapentin 800 mg tablet 800 mg PO TID PRN (Reason: Pain) (DME) spectrum AFO See Rx Instructions .Route .MEDSUPPLY Qty: 1 0RF Rx Instructions: As directed olanzapine 10 mg tablet,disintegrating 10 mg PO .HS atorvastatin 40 mg tablet 40 mg PO DAILY Qty: 90 3RF metoprolol succinate 50 mg tablet extended release 24 hr 50 mg PO QAM Qty: 90 2RF nitroglycerin 0.4 mg tablet, sublingual 0.4 mg sublingual Q5M PRN (Reason: chest pain) Qty: 30 6RF Rx Instructions: do not exceed 3 doses per episode diclofenac sodium [Voltaren Arthritis Pain] 1 % gel 2 g topical QID Qty: 100 0RF albuterol sulfate 90 mcg/actuation HFA aerosol inhaler 2 puff inhalation Q6H PRN (Reason: Shortness Of Breath) oxycodone-acetaminophen [Percocet] 7.5-325 mg tablet 1 tab PO Q4H PRN (Reason: pain) 7 Days Qty: 28 0RF Trelegy Ellipta 100-62.5-25 mcg blister with device 1 inh inhalation DAILY Qty: 60 3RF ziprasidone HCl 80 mg Capsule 80 mg PO BID doxepin 50 mg Capsule 100 mg PO BEDTIME trazodone 50 mg Tablet 25 mg PO BID aspirin 81 mg Tablet,Delayed Release (Dr/Ec) 81 mg PO DAILY acetaminophen 500 mg Tablet 1,000 mg PO Q4H PRN (Reason: Pain) baclofen 20 mg Tablet 20 mg PO BID PRN (Reason: Muscle Spasm) mirtazapine 30 mg Tablet 60 mg PO BEDTIME bupropion HCl 150 mg Tablet Extended Release 24 Hr 150 mg PO QAM Discharge Orders: Discharge Order (Routine); Ordered 09/30/22 Ordered By: Hollis Palma Referrals: Hollis Palma MD [Physician] - 4-7 days (scheduled for date :September at time of 09:15 am ) Discharge Diet: Usual diet Discharge Activity: Limit activity as instructed Patient Instructions: Oxycodone/Acetaminophen (By mouth), Thoracoscopy (DC), Opioid Safety Activity Restrictions/Additional Instructions: May remove bandages in 2 days May begin daily showers in 2 days with bandages off. Dry incisions completely afterwards. May recover to prevent irritation from clothing. Drain suture will be removed on follow-up clinic visit. Frequent use of incentive spirometer. No heavy lifting or pulling x2 weeks No swimming or tub baths x2 weeks Report any redness, swelling, drainage from incisions or fever. Report any increased shortness of breath. Discharge Attestations Time Spent in Discharge Care*: less than 30 min Specific Discharge Activities: educating patient, discussing with child welfare caseworker/social workers/dc planners, documenting/other paperwork and evaluating patient/reviewing data Status at Discharge: Cognitive status at discharge: cognitively intact , Behavioral status at discharge: cooperative , Functional status at discharge: independent ambulation , Overall status at discharge: patient is progressing back to baseline Quality Metrics Clinical Quality Measures [ No reported AMI, CVA or VTE this stay] Coding Level of Care Code Acute Code for Chg Fwd Diagnoses Interstitial lung disease J84.9
== END 2022-09-30 14:25 | disposition home or self-care (01) | DRG 198 ==
LOC: ICU 10:27
PROVIDERS: Anesthesiology; Admitting Provider Thoracic Surgery (Cardiothoracic Vascular Surgery); PCP Emergency Medicine Emergency Medical Services; Visit Provider Thoracic Surgery (Cardiothoracic Vascular Surgery)
PROC: 0BB44ZZ Excision of Right Upper Lobe Bronchus, Percutaneous Endoscopic Approach (ICD-10-PCS; principal; 2022-09-28 07:00)
DX: J84.10 Pulmonary fibrosis, unspecified (principal); Z79.51 Long term (current) use of inhaled steroids; Z79.891 Long term (current) use of opiate analgesic; Z79.82 Long term (current) use of aspirin
CPT/HCPCS: 36415; 36416; 51702; 71045; 80048; 80053; 81003; 82962; 85025; 85610; 86850; 86900; 86920; 88307; 88325; 94640; 94664; 96376; J0330; J0690; J1100; J1170; J1885; J2250; J2270; J2405; J2704; J2795; J3010; J3490; J7030; J7626

== ENCOUNTER → 2022-10-07 10:38 | Outpatient (BNVA) | payer OTHER, SELFPAY | PROVIDERS: PCP Emergency Medicine Emergency Medical Services; Visit Provider Thoracic Surgery (Cardiothoracic Vascular Surgery) | DX: Z09 Encounter for follow-up examination after completed treatment for conditions other than malignant neoplasm (principal) | CPT/HCPCS: 99024 ==

== ENCOUNTER 2022-11-17 08:22 | Outpatient (CLI) | payer MEDICAID, SELFPAY ==
[2022-11-17 08:36] VITALS: PULSE 67; RESP 18; O2SAT 99
[2022-11-17 08:40] VITALS: PULSE 70
== END 2022-11-17 08:23 | disposition home or self-care (01) ==
LOC: RT 08:24
PROVIDERS: PCP Emergency Medicine Emergency Medical Services; Visit Provider Internal Medicine Pulmonary Disease
DX: R06.02 Shortness of breath (principal); R06.00 Dyspnea, unspecified
CPT/HCPCS: 94060; 94726; 94729; J7613

== ENCOUNTER → 2022-11-29 11:18 | Outpatient (BNVA) | payer OTHER, SELFPAY | PROVIDERS: PCP Emergency Medicine Emergency Medical Services; Visit Provider Internal Medicine Pulmonary Disease | DX: R06.00 Dyspnea, unspecified (principal); J84.89 Other specified interstitial pulmonary diseases; Z91.89 Other specified personal risk factors, not elsewhere classified; G47.33 Obstructive sleep apnea (adult) (pediatric); R06.1 Stridor; Z87.891 Personal history of nicotine dependence; I25.10 Atherosclerotic heart disease of native coronary artery without angina pectoris; E11.9 Type 2 diabetes mellitus without complications; E78.5 Hyperlipidemia, unspecified; F32.A Depression, unspecified; K21.9 Gastro-esophageal reflux disease without esophagitis | CPT/HCPCS: 99214 ==

== ENCOUNTER → 2022-12-15 14:50 | Outpatient (BNVA) | payer OTHER, SELFPAY | PROVIDERS: PCP Emergency Medicine Emergency Medical Services; Visit Provider Podiatrist Foot & Ankle Surgery | DX: M25.372 Other instability, left ankle (principal); M19.072 Primary osteoarthritis, left ankle and foot | CPT/HCPCS: 99213 ==

== ENCOUNTER → 2022-12-21 08:58 | Outpatient (BNVA) | payer MEDICAID, SELFPAY | PROVIDERS: PCP Emergency Medicine Emergency Medical Services; Visit Provider Otolaryngology | DX: T16.2XXA Foreign body in left ear, initial encounter (principal); R04.2 Hemoptysis; G47.33 Obstructive sleep apnea (adult) (pediatric); J44.9 Chronic obstructive pulmonary disease, unspecified; J98.4 Other disorders of lung; J84.9 Interstitial pulmonary disease, unspecified; R06.00 Dyspnea, unspecified; X58.XXXA Exposure to other specified factors, initial encounter | CPT/HCPCS: 31575; 69205; 99204 ==

== ENCOUNTER 2023-01-27 13:55 | Outpatient (RCR) | payer OTHER, SELFPAY ==
[2023-01-31 12:39] VITALS: O2SAT 84; O2SAT 93
== END 2023-02-10 23:59 | disposition home or self-care (01) ==
LOC: PULRHB 13:55
PROVIDERS: PCP Emergency Medicine Emergency Medical Services; Visit Provider Internal Medicine Pulmonary Disease
DX: R06.00 Dyspnea, unspecified (principal); R06.02 Shortness of breath
CPT/HCPCS: 94760

== ENCOUNTER 2023-02-11 06:00 | Outpatient (RCR) | payer OTHER, SELFPAY | END 2023-03-12 23:59 | disposition home or self-care (01) | LOC: PULRHB 06:00 | PROVIDERS: PCP Emergency Medicine Emergency Medical Services; Visit Provider Internal Medicine Pulmonary Disease | DX: R06.02 Shortness of breath (principal); R06.00 Dyspnea, unspecified | CPT/HCPCS: 94625 ==

== ENCOUNTER → 2023-02-28 13:15 | Outpatient (BNVA) | payer OTHER, SELFPAY | PROVIDERS: PCP Emergency Medicine Emergency Medical Services; Visit Provider Internal Medicine Cardiovascular Disease | DX: I10 Essential (primary) hypertension (principal); Z98.890 Other specified postprocedural states; J44.9 Chronic obstructive pulmonary disease, unspecified; G47.33 Obstructive sleep apnea (adult) (pediatric); J98.4 Other disorders of lung; J84.9 Interstitial pulmonary disease, unspecified; E78.2 Mixed hyperlipidemia; Z87.891 Personal history of nicotine dependence; J84.89 Other specified interstitial pulmonary diseases; R06.00 Dyspnea, unspecified; Z91.89 Other specified personal risk factors, not elsewhere classified; R06.1 Stridor; I25.10 Atherosclerotic heart disease of native coronary artery without angina pectoris | CPT/HCPCS: 99213; 99214 ==

== ENCOUNTER 2023-03-13 06:00 | Outpatient (RCR) | payer OTHER, SELFPAY | END 2023-04-12 23:59 | disposition home or self-care (01) | LOC: PULRHB 06:00 | PROVIDERS: PCP Emergency Medicine Emergency Medical Services; Visit Provider Internal Medicine Pulmonary Disease | DX: R06.02 Shortness of breath (principal); R06.00 Dyspnea, unspecified | CPT/HCPCS: 94625 ==

== ENCOUNTER 2023-03-15 08:08 | Outpatient (CLI) | payer OTHER, SELFPAY ==
[2023-03-15 08:25] VITALS: PULSE 65; RESP 18; O2SAT 99
[2023-03-15] MEDS: albuterol 2.5 mg/3 mL Neb INHALATION (08:25)
[2023-03-15 10:30] VITALS: PULSE 68
== END 2023-03-15 08:09 | disposition home or self-care (01) ==
PROVIDERS: PCP Emergency Medicine Emergency Medical Services; Visit Provider Internal Medicine Pulmonary Disease
DX: J84.9 Interstitial pulmonary disease, unspecified (principal)
CPT/HCPCS: 94060; 94729; J7613

== ENCOUNTER 2023-05-09 07:25 | Outpatient (CLI) | payer OTHER, SELFPAY ==
--- NOTE | 2023-05-09 07:30 | CT_ITS ---
WS: [id number] CT CHEST CT-HIGH RESOLUTION, NONCONTRAST. HISTORY: Interstitial lung disease. Technique: High-resolution chest CT is performed in inspiration, expiration, supine and prone positio marcell. All CT scans at [facility] use at least one of these dose optimization techniques: automated exposure control; mA and/or kV adjustment per patient size (includes targeted exams where dose is mat ched to clinical indication); or iterative reconstruction. DLP: 1765.02 mGy.cm COMPARISON: 09/23/2022 Findings: Mild improvement in the hazy groundglass opacifications within both lungs since 09/23/2022. There is a new area of irregular consolidation in the posterior RIGHT upper lobe. This consolidation persists with prone imaging and is probably an area of chronic atelectasis. There is an associated ca lcification. No bronchiectasis and no honeycombing. No areas of mosaic attenuation or air trapping. T here is normal volume loss during expiration. 5 mm noncalcified nodule RIGHT upper lobe, stable. No pneumothorax. No pericardial or pleural effusions. The pulmonary artery is enlarged measuring up t o 4.0 cm. Heart size is normal. Mild scattered coronary artery calcifications. Small hiatal hernia. P rior cholecystectomy. No adrenal mass. Impression: 1. No evidence for honeycombing or bronchiectasis. 2. Enlarged pulmonary artery. Consider pulmonary hypertension. Echocardiography may be of benefit. 3. Improved groundglass attenuation since 09/23/2022 within both lungs. There is a new area of irregul ar opacification in the posterior RIGHT upper lobe which may be chronic atelectasis. This can be foll owed up in 6 months with noncontrast chest CT.
[2023-05-11 12:36] VITALS: O2SAT 84; O2SAT 94
== END 2023-05-09 07:26 | disposition home or self-care (01) ==
LOC: RAD 07:25
PROVIDERS: PCP Emergency Medicine Emergency Medical Services; Visit Provider Internal Medicine Pulmonary Disease
DX: J84.9 Interstitial pulmonary disease, unspecified (principal); I77.89 Other specified disorders of arteries and arterioles; I28.9 Disease of pulmonary vessels, unspecified; R91.8 Other nonspecific abnormal finding of lung field
CPT/HCPCS: 71250

== ENCOUNTER → 2023-05-10 12:17 | Outpatient (BNVA) | payer OTHER, SELFPAY | PROVIDERS: PCP Emergency Medicine Emergency Medical Services; Visit Provider Internal Medicine Pulmonary Disease | DX: J84.89 Other specified interstitial pulmonary diseases (principal); Z91.89 Other specified personal risk factors, not elsewhere classified; G47.33 Obstructive sleep apnea (adult) (pediatric); J44.9 Chronic obstructive pulmonary disease, unspecified; Z87.891 Personal history of nicotine dependence; Z99.81 Dependence on supplemental oxygen; Z99.89 Dependence on other enabling machines and devices; E11.9 Type 2 diabetes mellitus without complications; F32.A Depression, unspecified; K21.9 Gastro-esophageal reflux disease without esophagitis; I25.10 Atherosclerotic heart disease of native coronary artery without angina pectoris | CPT/HCPCS: 99214 ==

== ENCOUNTER 2023-05-13 06:00 | Outpatient (RCR) | payer OTHER, SELFPAY | END 2023-06-12 23:59 | disposition home or self-care (01) | LOC: PULRHB 06:00 | PROVIDERS: PCP Emergency Medicine Emergency Medical Services; Visit Provider Internal Medicine Pulmonary Disease | DX: R06.00 Dyspnea, unspecified (principal); R06.02 Shortness of breath | CPT/HCPCS: 94625 ==

== ENCOUNTER 2023-06-13 06:00 | Outpatient (RCR) | payer OTHER, SELFPAY | END 2023-07-13 23:59 | disposition home or self-care (01) | LOC: PULRHB 06:00 | PROVIDERS: PCP Emergency Medicine Emergency Medical Services; Visit Provider Internal Medicine Pulmonary Disease | DX: R06.00 Dyspnea, unspecified (principal); R06.02 Shortness of breath | CPT/HCPCS: 94625 ==

== ENCOUNTER → 2023-07-14 12:18 | Outpatient (BNVA) | payer OTHER, SELFPAY | PROVIDERS: PCP Emergency Medicine Emergency Medical Services; Visit Provider Internal Medicine Pulmonary Disease | DX: J84.89 Other specified interstitial pulmonary diseases (principal); R06.00 Dyspnea, unspecified; Z91.89 Other specified personal risk factors, not elsewhere classified; G47.33 Obstructive sleep apnea (adult) (pediatric); J44.9 Chronic obstructive pulmonary disease, unspecified; Z99.81 Dependence on supplemental oxygen; Z87.891 Personal history of nicotine dependence | CPT/HCPCS: 99214 ==

== ENCOUNTER 2023-08-04 12:31 | Outpatient (CLI) | payer OTHER, SELFPAY ==
[2023-08-04 12:55] VITALS: PULSE 88; RESP 18; O2SAT 95
[2023-08-04] MEDS: albuterol 2.5 mg/3 mL Neb INHALATION (12:55)
[2023-08-04 13:00] VITALS: PULSE 85
== END 2023-08-04 12:32 | disposition home or self-care (01) ==
LOC: RT 12:31
PROVIDERS: PCP Emergency Medicine Emergency Medical Services; Visit Provider Internal Medicine Pulmonary Disease
DX: J84.9 Interstitial pulmonary disease, unspecified (principal)
CPT/HCPCS: 94060; 94618; 94726; 94729; J7613

== ENCOUNTER 2023-08-05 09:20 | Outpatient (CLI) | payer OTHER, SELFPAY ==
--- NOTE | 2023-08-05 10:00 | CTR_ITS ---
PROCEDURE INFORMATION: Exam: CT Chest Without Contrast; Diagnostic Exam date and time: 08/05/2023 9:36 AM Age: 52 years old Clinical indication: Shortness of breath; Additional info: Hrct TECHNIQUE: Imaging protocol: Diagnostic computed tomography of the chest without contrast. Radiation optimization: All CT scans at this facility use at least one of these dose optimization techniques: automated exposure control; mA and/or kV adjustment per patient size (includes targeted exams where dose is matched to clinical indication); or iterative reconstruction. COMPARISON: CT chest wo con [id number] 05/09/2023 7:39 AM RADIATION DOSE METRICS: Total DLP (mGy-cm): 1838.61 FINDINGS: Thyroid: No significant thyroid pathology. Lungs: Right upper lobe fibrocalcific scarring again noted. Expiration view demonstrates areas of mosaic attenuation in the lower lobes consistent with air trapping (example right lower lobe series 5 image 15, left lower lobe series 5, image 17). Continued stability 4 mm nodule of the right upper lobe on series 5, image 9 likely representing benign pathology. There is a borderline cylindrical bronchiectasis in the lower lobes. Pleural spaces: No pleural effusion. Heart: Unremarkable. No cardiomegaly. No pericardial effusion. Coronary arteries: No coronary artery calcification evident. Mediastinal space: Mural thickening distal thoracic esophagus. Lymph nodes: No enlarged nodes by criteria. Vasculature: No evidence of thoracic aortic aneurysm. Gallbladder and bile ducts: Prior cholecystectomy. Adrenal glands: Stable 8 mm right adrenal nodule rising from the medial limb exophytically with low attenuation consistent with adenoma. Bones/joints: Incomplete imaging of the ACDF. Mild degenerative changes of the spine. Soft tissues: Unremarkable. CT/CT chest wo con [id number] IMPRESSION: 1. Borderline cylindrical bronchiectasis of the lower lobes with air trapping on expiration consistent with small airway disease. 2. Minor findings as above.
== END 2023-08-05 09:21 | disposition home or self-care (01) ==
LOC: RAD 09:20
PROVIDERS: PCP Emergency Medicine Emergency Medical Services; Visit Provider Internal Medicine Pulmonary Disease
DX: J84.9 Interstitial pulmonary disease, unspecified (principal)
CPT/HCPCS: 71250

== ENCOUNTER → 2023-10-13 12:51 | Outpatient (BNVA) | payer OTHER, SELFPAY | PROVIDERS: PCP Emergency Medicine Emergency Medical Services; Visit Provider Internal Medicine Pulmonary Disease | DX: J84.89 Other specified interstitial pulmonary diseases (principal); R06.00 Dyspnea, unspecified; Z91.89 Other specified personal risk factors, not elsewhere classified; G47.33 Obstructive sleep apnea (adult) (pediatric); J44.9 Chronic obstructive pulmonary disease, unspecified; Z78.9 Other specified health status; Z87.891 Personal history of nicotine dependence | CPT/HCPCS: 99214 ==

== ENCOUNTER → 2023-11-11 10:33 | Outpatient (BNVA) | payer OTHER, SELFPAY | PROVIDERS: PCP Emergency Medicine Emergency Medical Services; Visit Provider Internal Medicine Pulmonary Disease | DX: J84.89 Other specified interstitial pulmonary diseases (principal); R06.00 Dyspnea, unspecified; Z91.89 Other specified personal risk factors, not elsewhere classified; G47.33 Obstructive sleep apnea (adult) (pediatric); J44.9 Chronic obstructive pulmonary disease, unspecified; Z78.9 Other specified health status; Z87.891 Personal history of nicotine dependence | CPT/HCPCS: 99214 ==

== ENCOUNTER → 2023-12-23 14:15 | Outpatient (BNVA) | payer OTHER, SELFPAY | PROVIDERS: PCP Emergency Medicine Emergency Medical Services; Visit Provider Podiatrist Foot & Ankle Surgery | DX: M25.572 Pain in left ankle and joints of left foot (principal); M25.372 Other instability, left ankle; M19.072 Primary osteoarthritis, left ankle and foot | CPT/HCPCS: 99213 ==

== ENCOUNTER → 2024-02-06 15:06 | Outpatient (BNVA) | payer OTHER, SELFPAY | PROVIDERS: PCP Emergency Medicine Emergency Medical Services; Visit Provider Specialist | DX: M17.12 Unilateral primary osteoarthritis, left knee (principal) | CPT/HCPCS: 73560; 73565; 99204 ==

== ENCOUNTER 2024-03-05 08:21 | Outpatient (CLI) | payer OTHER, SELFPAY ==
--- NOTE | 2024-03-05 08:45 | MR_ITS ---
WS: [id number] MRI LEFT KNEE HISTORY: left knee pain COMPARISON: Radiograph 02/06/2024 Anterior cruciate ligament: Intact. Posterior cruciate ligament: Intact. Medial collateral ligament: Small amount of fluid surrounding the MCL but no tear is identified. Ther e is partial displacement from the joint line by the extruded meniscus. Posterior lateral corner structures: Intact. Medial menisci: Abnormal signal throughout the posterior horn. Increased signal extends to the intra- articular surface consistent with a horizontal meniscal tear. There is additional blunting of the mack e edge with a small amount of fluid at the blunting site. Meniscus is partially extruded from the sherin nt line and extends inferiorly from the joint line. Anterior horn is negative. Lateral meniscus: Intact. Normal signal, size and shape. Extensor mechanism: Distal quadriceps tendon and patellar tendons are intact. Fluid and soft tissue: Small suprapatellar joint effusion. Small Levine's cyst. Osseous and articular structures: Patellofemoral compartment: Normally positioned patella. No marrow edema. Very subtle superficial def ect in the cartilage over the medial patellar facet. Medial compartment: Mild narrowing of the medial compartment. Mild diffuse chondromalacia involving t he weightbearing surfaces of the femoral condyle and tibial plateau. Focal marrow edema along the tib ial plateau and extending into the metaphysis adjacent to the MCL. No fracture. Lateral compartment: Mild narrowing of the lateral compartment. There is a small amount of marrow yelena ma in the posterior tibial plateau. Mild chondromalacia mid weightbearing surface of the tibial plate au. There is very mild thickening semimembranosus tendon at the level of the knee joint with a small amou nt of fluid near its insertion. No discrete tear is identified. MR/MR knee LT wo con* [id number] IMPRESSION: 1. Horizontal tear posterior horn medial meniscus with extension to the inferi or articular surface. 2. Blunting of the free edge posterior horn medial meniscus with fluid in the defect. 3. Mild MCL sprain. 4. Mild extrusion from the joint line of the medial meniscus. 5. Small suprapatellar joint effusion and small Levine's cyst. 6. Minimal chondromalacia lateral patellar facet. 7. Mild narrowing of the medial compartment with marrow edema in the tibial pl ateau. Small amount of marrow edema in the posterior lateral tibial plateau. 8. Medial compartment, mild diffuse chondromalacia. 9. Lateral compartment, mild chondromalacia tibial plateau.
== END 2024-03-05 08:22 | disposition home or self-care (01) ==
LOC: RAD 08:21
PROVIDERS: PCP Emergency Medicine Emergency Medical Services; Visit Provider Specialist
DX: S83.242A Other tear of medial meniscus, current injury, left knee, initial encounter (principal); S83.412A Sprain of medial collateral ligament of left knee, initial encounter; M71.22 Synovial cyst of popliteal space [Baker], left knee; M22.42 Chondromalacia patellae, left knee; X58.XXXA Exposure to other specified factors, initial encounter
CPT/HCPCS: 73721

== ENCOUNTER → 2024-03-19 14:05 | Outpatient (BNVA) | payer OTHER, SELFPAY | PROVIDERS: PCP Emergency Medicine Emergency Medical Services; Visit Provider Specialist | DX: M17.12 Unilateral primary osteoarthritis, left knee (principal) | CPT/HCPCS: 20610; 99214; J1100; J2795; J3301 ==

== ENCOUNTER → 2024-04-04 13:43 | Outpatient (BNVA) | payer OTHER, SELFPAY | PROVIDERS: PCP Emergency Medicine Emergency Medical Services; Visit Provider Internal Medicine Cardiovascular Disease | DX: I10 Essential (primary) hypertension (principal) | CPT/HCPCS: 99213 ==

== ENCOUNTER → 2024-05-18 10:11 | Outpatient (BNVA) | payer OTHER, SELFPAY | PROVIDERS: PCP Emergency Medicine Emergency Medical Services; Visit Provider Nurse Practitioner Family | DX: I10 Essential (primary) hypertension (principal); R06.00 Dyspnea, unspecified; E78.2 Mixed hyperlipidemia; Z76.82 Awaiting organ transplant status | CPT/HCPCS: 93005; 99214 ==

== ENCOUNTER 2024-05-23 08:05 | Outpatient (CLI) | payer OTHER, SELFPAY ==
--- NOTE | 2024-05-23 08:11 | IR_ITS ---
WS: [id number] LEFT KNEE ARTHROGRAM Fluoroscopic guided left knee arthrogram. CLINICAL INFORMATION: left knee pain TECHNIQUE: The procedure including risks, benefits, and complications were discussed with the patient , who agreed to proceed. Timeout was performed. Using sterile technique, the patient was prepped and draped in the usual sterile fashion. After 1% lidocaine injection using fluoroscopic guidance, a 22-g auge spinal needle was advanced into the left patellofemoral compartment. Subsequently 40 cc of a mix ture containing 10 cc 1% lidocaine, 10 cc normal saline, 10 cc Omnipaque 240, and 0.2 cc gadolinium w as administered. No immediate complications. FLUOROSCOPY TIME: 1min [id number] # of spot films: 3 IR/[place] [id number] IMPRESSION: Uncomplicated left knee fluoroscopic guided arthrogram. MRI to follow.
--- NOTE | 2024-05-23 08:11 | MR_ITS ---
WS: [id number] MRI LEFT KNEE ARTHROGRAM TECHNIQUE: Axial PD, coronal PD fat sat, coronal PD, sagittal PD, and sagittal PD fat-sat images obta ined. Post arthrogram images obtained CLINICAL INFORMATION: left knee pain COMPARISON: MRI 03/05/2024 FINDINGS: ACL and PCL are intact. High-grade tear involving the posterior horn medial meniscus extending to th e peripheral articular and inferior articular surface. No visualized displaced fragments. Peripheral extrusion of the medial and lateral meniscus. Medial and lateral collateral ligaments appear intact. Grade 1-2 injury MCL. Popliteus appears intact . Medial and lateral patellar retinaculum are intact. Grade 2-3 chondromalacia patella. Distal quadriceps and patella tendons are intact. T2 signal abnormality involving the posterolateral tibial plateau most compatible with contusion. This is progressed compared to previous. Recommend cor relation with lateral knee pain. This may be due to prior trauma or recurrent microtrauma. Moderate c hondromalacia medial and lateral joint compartments. MR/MR knee LT wo/w con [id number] IMPRESSION: 1. ACL and PCL are intact. 2. High-grade horizontal tear involving the posterior horn medial meniscus ext ending to the peripheral and articular surface. 3. Mild peripheral extrusion of the medial and lateral meniscus. 4. Grade 1-2 injury medial collateral ligament with a small amount of fluid an d edema along the superficial and deep fibers. Normal lateral collateral ligame nt. 5. Progressed contusion involving the posterior lateral tibial plateau either due to prior injury or chronic microtrauma. 6. Moderate chondromalacia grade 2-3 medial lateral joint compartments. 7. Moderate chondromalacia patella. 8. No other significant changes compared to previous Outbridge grading: grade III: partial-thickness cartilage loss with focal ulcer ation
[2024-05-23] MEDS: gadobenate dimeglumine 20 mL vial IV (10:15)
[2024-05-23] MEDS: iohexol 240 mg/mL 50 mL Btl 25 ML INTRA-ARTI (10:17)
== END 2024-05-23 08:06 | disposition home or self-care (01) ==
PROVIDERS: PCP Emergency Medicine Emergency Medical Services; Visit Provider Specialist
DX: M17.12 Unilateral primary osteoarthritis, left knee (principal); M23.222 Derangement of posterior horn of medial meniscus due to old tear or injury, left knee; S83.412A Sprain of medial collateral ligament of left knee, initial encounter; S80.02XA Contusion of left knee, initial encounter; M94.262 Chondromalacia, left knee; X58.XXXA Exposure to other specified factors, initial encounter
CPT/HCPCS: 27369; 73723; 77002

== ENCOUNTER 2024-06-08 07:29 | Outpatient (CLI) | payer OTHER, SELFPAY ==
--- NOTE | 2024-06-08 07:45 | USCV_ITS ---
KurtLance clifton Age: 53 Gender: M : 1970 Exam Date: 06/08/2024 08:00 Ordering Phys: Rebecca Page Technologist: Fernando Ruiz Exam Location: [facility] [place] Indication: lung transplant workup BP: 105 / 71 HR: 71 Rhythm: Sinus Technical Quality: Adequate MEASUREMENTS (Male / Female) Normal Values 2D ECHO LV Diastolic Diameter PLAX 4.4 cm 4.2 - 5.9 / 3.9 - 5.3 cm IVS Diastolic Thickness 1.2 cm 0.6 - 1.0 / 0.6 - 0.9 cm IVS Systolic Thickness 1.5 cm LVPW Diastolic Thickness 1.8 cm 0.6 - 1.0 / 0.6 - 0.9 cm LVPW Systolic Thickness 2.1 cm LVOT Diameter 2.1 cm LV Ejection Fraction 2D Teich 63.6 % LV Ejection Fraction MOD 4C 71.8 % LV Ejection Fraction MOD 2C 67.8 % LV Ejection Fraction 2C AL 68.3 % LA Diameter 3.5 cm RA Systolic Volume 4C AL 35.3 ml RA Systolic Volume 4C MOD 35.8 ml LA Sys Volume AL 34.6 cm cubed LA Sys Volume Index AL 15.7 cm cubed/m squared Aorta at Sinotubular Diameter 2.0 cm IVC Diameter 1.6 cm M-MODE LA Ao Ratio MM 1.2 AV Cusp Separation MM 2.2 cm DOPPLER AV Peak Velocity 168.0 cm/s LVOT Peak Velocity 131.0 cm/s AV Area Cont Eq vti 2.4 cm squared AV Area Cont Eq pk 2.7 cm squared MV Peak Velocity 102.7 cm/s MV Area PHT 4.7 cm squared Mitral E to A Ratio 0.9 TV Peak Velocity 246.0 cm/s TR Peak Velocity 263.0 cm/s TR Peak Gradient 27.7 mmHg TR Mean Velocity 199.0 cm/s TR Mean Gradient 17.0 mmHg TR Velocity Time Integral 70.7 cm RV Ejection Time 0.3 s FINDINGS Left Ventricle Left ventricle is normal in size. LV systolic function is normal with EF of 55-60%. No regional wall motion abnormalities. Grade 1 diastolic dysfunction Right Ventricle Normal in size and function Right Atrium Normal in size Left Atrium Normal in size Mitral Valve Mild mitral annular calcification. Mild mitral regurgitation. Aortic Valve Aortic valve is thickened. No significant stenosis or regurgitation. Tricuspid Valve Insufficient TR jet to calculate RVSP Pulmonic Valve Not well visualized Pericardium Normal Aorta Normal in size IVC Appears to be normal CONCLUSIONS LV systolic function is normal with EF of 55-60% Grade 1 diastolic dysfunction Mild mitral regurgitation No comparison studies are available. Shailesh Muniz MD (Electronically Signed) Final Date: 15 June 2024 14:15 S
== END 2024-06-08 07:30 | disposition home or self-care (01) ==
LOC: RAD 07:30
PROVIDERS: PCP Emergency Medicine Emergency Medical Services; Visit Provider Nurse Practitioner Family
DX: I50.30 Unspecified diastolic (congestive) heart failure (principal); I35.8 Other nonrheumatic aortic valve disorders; I10 Essential (primary) hypertension; Z76.82 Awaiting organ transplant status
CPT/HCPCS: 93306

== ENCOUNTER 2024-06-11 16:30 | Outpatient (CLI) | payer OTHER, SELFPAY ==
--- NOTE | 2024-06-11 16:37 | USCV_ITS ---
Lance Harris Age: 53 Gender: M : 1970 Exam Date: 06/11/2024 16:49 Ordering Phys: Thuy Purvis Technologist: R Exam Location: [facility] [place] Indication: EVAL for transplant Risk Factors: Previous Vascular Surgery: Right Brachial BP: / Left Brachial BP: / Right Left Velocity (cm/s) Spectral Plaque Velocity (cm/s) Spectral Plaque Syst/Diast Broadening Syst/Diast Broadening 88.20/ 27.10 Prox CCA 114.40/ 35.90 84.30/ 22.00 Mid CCA 127.10/ 40.10 98.20/ 28.10 Distal CCA 105.90/ 33.70 59.10/ 16.50 Prox ICA 72.60 / 24.00 72.00/ 26.70 Mid ICA 88.30 / 24.00 68.40/ 29.20 Distal ICA 100.30/ 29.00 101.40 ECA 66.00 0.60 ICA/CCA 0.70 Antegrade Vertebral Antegrade 23.60/ 5.50 cm/s 54.30/ 29.00 cm/s Tri Subclavian Tri 95.00 86.50 CONCLUSIONS Right ICA stenosis <50%. Mild atheromatous plaque right carotid bulb/ICA. Left ICA stenosis <50%. Mild atheromatous plaque left carotid bulb/ICA. Normal antegrade Doppler flow noted in the left vertebral artery. Normal antegrade Doppler flow noted in the left vertebral artery. Christopher Duran MD (Electronically Signed) Final Date: 11 June 2024 18:11 S
== END 2024-06-11 16:31 | disposition home or self-care (01) ==
LOC: RAD 16:31
PROVIDERS: PCP Emergency Medicine Emergency Medical Services; Visit Provider Nurse Practitioner Family
DX: I65.23 Occlusion and stenosis of bilateral carotid arteries (principal)
CPT/HCPCS: 93880

== ENCOUNTER 2024-06-14 15:13 | Outpatient (CLI) | payer OTHER, SELFPAY ==
[2024-06-14 16:05] LABS: Basophils % 0.6 %; Eosinophils # 0.1 10^3/uL (0.0-0.8); Eosinophils % 1.7 %; Hematocrit 35.4 % (37-53); Lymphocytes # 1.7 10^3/uL (0.8-4.8); Lymphocytes % 24.7 %; Mean Corpuscular HGB Conc 31.6 g/dL (30-55); Mean Corpuscular Hemoglobin 25.7 pg (27-33); Mean Corpuscular Volume 81.4 fl (82-101); Monocytes # 0.5 10^3/uL (0.2-0.9); Neutrophils # 4.51 10^3/uL (1.8-7.7); Neutrophils % 65.6 %; Nucleated Red Blood Cells % 0 %; Platelet Count 215 10^3/cmm (157-399); Red Blood Count 4.35 10^6/uL (3.85-5.65); Red Cell Distribution Width 13.3 % (12.1-15.1); White Blood Count 6.88 10^3/uL (3.29-11.43)
[2024-06-14 16:18] LABS: INR 0.95 (0.83-1.21); Prothrombin Time (Patient) 13.3 Seconds (12.0-15.1)
[2024-06-14 16:21] LABS: Anion Gap 13.1 (5-19); Blood Urea Nitrogen 8 mg/dL (6-20); Calcium 9.5 mg/dL (8.5-10.5); Carbon Dioxide 28 mmol/L (22-29); Chloride 98 mmol/L (98-107); Glomerular Filtration Rate 78.5 mL/min (90-130); Glucose 107 mg/dL (65-115); Osmolality Calculated 279 mOsm/kg (285-295); Potassium 4.1 mmol/L (3.5-5.1); Sodium 135 mmol/L (136-145)
== END 2024-06-14 15:14 | disposition home or self-care (01) ==
LOC: LAB 15:17
PROVIDERS: Nurse Practitioner Family; PCP Emergency Medicine Emergency Medical Services; Visit Provider Internal Medicine Cardiovascular Disease
DX: R06.02 Shortness of breath (principal)
CPT/HCPCS: 36415; 80048; 85025; 85610

== ENCOUNTER 2024-06-21 05:58 | Outpatient (CLI) | payer OTHER, SELFPAY ==
[2024-06-21] VITALS (25 sets, daily range): BP systolic 97–143; BP diastolic 56–86; PULSE 67–82; RESP 11–19; TEMP 36.8; O2SAT 90–97; BMI 35.5
--- NOTE | 2024-06-21 06:00 | XACV_ITS ---
Ht: 168 cm Wt: 100 kg BSA: 2.20 m2 Gender: Male : 1970 Any Known Allergies: No known allergies Exam Priority: Routine Indication(s): - Surgical clearance Procedure(s): Procedure Description: Diagnostic procedure Procedure Description: Left Heart Catheterization Procedure Description: Right Heart Catheterization Procedure Description: Left ventriculography Procedure Description: O2 saturation Procedure Description: Coronary Angiography [place] VIEIRA; Diagnostic Cath Status: Elective Diagnostic Findings * Left main: Mild luminal irregularity without significant stenosis LAD: Mild luminal irregularities without significant stenosis, Diagonal: No significant disease. Left circumflex: No significant disease mild luminal irregularities noted, obtuse marginal 1 mild luminal irregularities without significant stenosis, obtuse marginal 2 small caliber vessel without significant stenosis. RCA: Posterior takeoff, luminal irregularities without significant stenosis.. * Coronary angiography shows right dominance. Conclusions 1. Left main: Mild luminal irregularity without significant stenosis LAD: Mild luminal irregularities without significant stenosis, Diagonal: No significant disease. Left circumflex: No significant disease mild luminal irregularities noted, obtuse marginal 1 mild luminal irregularities without significant stenosis, obtuse marginal 2 small caliber vessel without significant stenosis. RCA: Posterior takeoff, luminal irregularities without significant stenosis.. 2. Hyperdynamic left ventricular systolic function. Ejection fraction of 70%. 3. Pulmonary capillary wedge pressure 19 mmHg, PA mean 26 mmHg, RV 41/6 with mean of 15 mmHg, RA mean 10 mmHg. Cardiac output by Kiki 9, cardiac index 4. No intracardiac shunt or step-up noted. PA sat 77%, RV sat 73%, RA sat 75%, aortic sat 95% without oxygen. Recommendations * Continue current medical management and risk factor modification. * 1-Return to holding for close monitoring and routine cath care 2-Risk factor modification for secondary prevention 3-Statin and aspirin 81 mg life-long, if tolerated 4-Follow up with PCP in 10 days. Diagnostic RX Recommendation: medical therapy and/or counseling Ventriculography Ejection Fraction: 70.0 % Left Ventriculography Findings: * Hyperdynamic left ventricle, on pullback moderate gradient was observed, it is a question whether it is due to left ventricular outflow track hyperdynamic obstruction or as an error, will confirm it with echocardiogram. Left ventricular ejection fraction is hyperdynamic at 70%, left ventricular end-diastolic pressure is normal and 13 mmHg. Pressures Phase:Rest AO : / ( 0 ) @ 7:59:00 AM 102 / 68 ( 82 ) @ 8:20:00 AM 91 / 64 ( 78 ) @ 8:21:00 AM 107 / 60 ( 82 ) @ 8:33:00 AM 107 / 61 ( 81 ) @ 8:33:00 AM LV : 120 / -3 / 13 @ 8:31:00 AM 122 / -5 / 13 @ 8:32:00 AM 120 / -5 / 12 @ 8:33:00 AM RV : 41 / 6 / 15 @ 8:06:00 AM PA : 41 / 12 ( 26 ) @ 8:07:00 AM RA : a wave = 16 v wave = 12 mean = 10 @ 8:09:00 AM PCW : a wave = 21 v wave = 21 mean = 19 @ 8:07:00 AM O2 Content Phase:Rest PA : O2 Content O2: 76.5 @ 7:59:00 AM Saturations Phase:Rest AO : 95 @ 8:21:00 AM RA : 75 @ 8:33:00 AM RV : 73 @ 8:20:00 AM PA : 77 @ 7:59:00 AM Cardiac Output Phase:Rest Kiki : 9 @ 8:47:38 AM Kiki Cardiac Index: 4 @ 8:47:38 AM Flow Phase:Rest Qp : 9 @ 8:47:38 AM Qs : 8 @ 8:47:38 AM Valves Phase:DefaultPhase AV : 13.0 @ 8:47:38 AM 13.0 @ 8:47:38 AM AV Mean Gradient: 19.0 @ 8:47:38 AM 19.0 @ 8:47:38 AM AV Flow: 1,270 @ 8:47:38 AM AV Area: 6.6 @ 8:47:38 AM AV Area Index: 3.16 @ 8:47:38 AM Clinical Evaluation EBL: 5mL-10mL Procedural Details Procedure Consent Obtained. Admit Source: Out Patient. Current Diagnosis : Chest Pain. Pre-Procedure Time Out. Identified patient by full name and date of as verbalized by the patient/guarantor. Does the consent match the physician's order: Yes. Accurate & Complete Informed Consent: Yes. Inpatient/Outpatient History & Physical on Chart: Yes. If H&P is completed, is and addenduem needed: No; If yes, is the addendum complete: N/A. Visualize and Verify Site with Patient/Guarantor: N/A. Relevant Radiology Images available: N/A. The risks, benefits, and alternatives of sedation and/or procedure were discussed by physician. The patient agrees to continue. [facility] Clinical Fraility Score: 3: Managing Well. 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 Chest Pain Symptom Assessment: Atypical Angina. Cardiovascular Instability: No. Procedure started. Correct patient, site and procedure confirmed by cath team. Current diagnosis: Pre Operative Evaluation. PERRLA. Strong, equal hand senior quality analyst bilaterally. Lungs clear x 5 lobes. IV Site on Arrival: 20 gauge in the right anticubital. IV Site on Arrival: 20 gauge in the left anticubital. IV Fluids: 0.9% NaCl at KVO. 0 mL infused prior to helper animal laboratory. Pre Procedural Pulses: bilateral dorsalis pedis was 2+. Pre Procedural Pulses: bilateral radial was 3+. Pre Procedural Pulses: bilateral posterior tibial was 1+. O2 OFF FOR RHC. right groin was prepped with chloroprep then draped in the usual sterile fashion. right brachial was prepped with chloroprep then draped in the usual sterile fashion. right radial was prepped with chloroprep then draped in the usual sterile fashion. Physician notified. Baseline sample Acquired. HR: 72 BPM. Physician arrived. Physician scrubbed in. Immediate Pre-Procedure Time Out. Correct Patient: Yes; Correct Procedure: Yes; Correct Site: Yes; Correct Patient Position: Yes; Correct Supplies: Yes; Dried Flammable Prep: Yes; Blood Products Available: N/A;. Lidocaine 1% infiltrated to the right brachial. Wire inserted through the established 20 ga access in right ac. [place] MON catheter inserted. Oximetry samples were obtained. Normal venous range: 60-85%. Normal arterial range: 95-100%. Pressure measurements obtained. ABG drawn and sent with respiratory therapy. [place] out. Lidocaine 1% infiltrated to the right radial. Arterial access obtained. A 5 gambian Sachin catheter in over wire. Oxygen started at 3liters/min via nasal canula. Multiple views taken of left coronary artery. Catheter redirected to the RCA. Unable to cannulate. Catheter removed over the exchange wire. A 5 gambian 3DRC catheter in over wire. Multiple views taken of right coronary artery. Catheter removed over the exchange wire. A 5 gambian Angled Pig catheter in over wire. EDP Sample taken: LV 120/-4,13; HR: 75 BPM; SpO2: 97%. LV gram performed in MONTERO @ 10 mL/second for a total of 30 mL. Patient EF: Normal. EDP Sample taken: LV 122/-6,13; HR: 76 BPM; SpO2: 97%. Pullback taken: LV 120/-6,12; AO 107/60(82); Mean: 19mmHg, Peak to Peak: 13mmHg, SEP: 7sec/min; HR: 75 BPM; SpO2: 98%. Catheter out over the wire. Physician review of films. Physician scrubbed out. A TR Band was successful obtaining hemostatsis at the Right Radial artery insertion site. A Manual Compression was successful obtaining hemostatsis at the Right Brachial Vein insertion site. TR band placed. Hemostasis obtained. Brachial venous sheath removed and manual pressure held until hemostasis was achieved. Sterile 4x4 and Op-site applied to the puncture site. No oozing or hematoma noted. Post sheath removal instructions were given and the patient verbalized understanding. Post Procedure: Pulses reassessed and unchanged. PERRLA. Strong, equal hand senior quality analyst bilaterally. No VTE prophylaxis required. Medication's Wasted: Lidocaine 1% = 16 mL. Medication's Wasted: Nitro = 49.8 mg. Medication's Wasted: Heparin = 1000 units. Medication's Wasted: Fentanyl = 25 mg. Total IV fluids: 50 mL. Fluoro: 6:07. Contrast type used: Omnipaque 300 mg/mL, 150 mL bottle. [id number]. Post-op diagnosis: Normal right heart pressures; Normal coronaries. Vital chart was stopped. Complications: None. Estimated blood loss: 5mL-10mL. Responsiveness - Normal response to verbal stimuli; alert and oriented, PERRLA. Airway - Unaffected, no intervention required; spontaneous ventilation. Circulation: W/N/L, pulses unchanged. Nausea/Vomiting: No. Procedure completed. Patient transferred by wheelchair to CPRU. Access Site Site: Right Brachial Vein Sheath Size: 6 Fr Hemostasis Method: Manual Compression Hemostasis Success: Successful Site: Right Radial artery Sheath Size: 6 Fr Hemostasis Method: TR Band Hemostasis Success: Successful Procedure Medications Start: 7:54 AM Stop: 7:54 AM Medication: Versed Amount: 1 mg Route: I.V. Start: 7:54 AM Stop: 7:54 AM Medication: Fentanyl Amount: 50 mcg Route: I.V. Start: 8:00 AM Stop: 8:00 AM Medication: Versed Amount: 1 mg Route: I.V. Start: 8:00 AM Stop: 8:00 AM Medication: Fentanyl Amount: 50 mcg Route: I.V. Start: 8:11 AM Stop: 8:11 AM Medication: Versed Amount: 1 mg Route: I.V. Start: 8:11 AM Stop: 8:11 AM Medication: Fentanyl Amount: 50 mcg Route: I.V. Start: 8:18 AM Stop: 8:18 AM Medication: Nitrogylcerin Amount: 200 mcg Route: I.A. Start: 8:19 AM Stop: 8:19 AM Medication: Versed 1 mg and Fentanyl 25 mcg Amount: 1 Route: I.V. I, the attending physician, have reviewed and verified all procedure medications. Yes, all medications given per verbal order History/Risk Factors Hypertension: Yes Dyslipidemia: Yes Peripheral Arterial Disease (PAD): No Myocardial Infarction (MT): No Obesity: Yes Renal Disease: No Tobacco Use: Former Prior Interventions PCI: No CABG: No Valve Surgery: No Report Signatures Finalized by Jose Chowdhury MD on 06/21/2024 09:08 AM
[2024-06-21] MEDS: diphenhydrAMINE 50 mg Capsule PO (06:15)
[2024-06-21] MEDS: aspirin 325 mg Tablet PO (06:15)
--- NOTE | 2024-06-21 07:47 | W.PM.OPSFHP ---
Same Day Surgery H&P Indication for Procedure/HPI DATE OF PROCEDURE: June 21, 2024 CHIEF COMPLAINT/INDICATIONFOR SURGICAL PROCEDURE: Preop/lung transplant exam Shortness of breath PREOP DIAGNOSIS: Interstitial lung disease/preop lung transplant PLANNED PROCEDURE: Operation Date: 06/21/24 07:00 Proposed Procedures p Cardiac Catheterization - RLHC w/wo LV & Coros(Bilateral) - Jose Chowdhury MD 53-year-old male past medical history significant for hypertension hyperlipidemia history of tobacco abuse being worked for lung transplant for interstitial lung disease (pulmonary fibrosis) he is here for preop left and right heart catheterization suggested as a part of the workup. Patient has been explained all risk-benefit and alternative for the procedure. He understand 2% risk of stroke major bleed, he understood 6% risk of minor bleeding oozing infection hematoma pseudoaneurysm contrast induced nephropathy. He would like to proceed with it. He is a candidate for dual antiplatelet therapy. Medications/Allergies* Home Medications Medication Instructions Recorded Confirmed Type acetaminophen 500 mg tablet 1,000 mg PO Q4H PRN Pain 05/13/21 06/20/24 History aspirin 81 mg tablet,delayed 81 mg PO DAILY 05/13/21 06/21/24 History release bupropion HCl 150 mg 24 hr tablet, 150 mg PO QAM 05/13/21 06/21/24 History extended release doxepin 50 mg capsule 100 mg PO BEDTIME 05/13/21 06/21/24 History mirtazapine 30 mg tablet 60 mg PO BEDTIME 05/13/21 06/21/24 History ziprasidone HCl 80 mg capsule 80 mg PO BID 05/13/21 06/21/24 History albuterol sulfate 90 mcg/actuation 2 puff inhalation Q6H PRN 12/02/21 06/21/24 History aerosol inhaler Shortness Of Breath trazodone 50 mg tablet 25 mg PO BID va med list has 25mg 11/29/22 06/21/24 History qid prn-pt states he just takes 25mgbid Allergies/Adverse Reactions Allergy/AdvReac Type Severity Reaction Status Date / Time No Known Allergies Allergy Verified 06/20/24 12:56 Current Medications: Generic Name Dose Route Start Last Admin Trade Name Freq PRN Reason Stop Dose Admin Sodium Chloride 1,000 mls @ 50 mls/hr 06/21/24 06:00 06/21/24 06:35 Sodium Chloride 0.9% IV 06/22/24 01:59 Not Given .Q20H ONE Pertinent History/Comorbid Conditions* Medical History (Updated 05/18/24 @ 10:02 by VASILIY Ayala) GERD (gastroesophageal reflux disease) Vomiting Acute prostatitis Hyperlipidemia GERD (gastroesophageal reflux disease) Hypertension Surgical History (Updated 08/12/21 @ 10:37 by Julio Cesar Edward MD) History of elbow surgery History of laparoscopic cholecystectomy History of ankle surgery History of neck surgery History of skin graft History of elbow surgery H/O wrist surgery Family History (Updated 05/28/21 @ 12:53 by Kirti Resendiz LPN) Father Heart disease Mother Heart attack Father Cancer Mother Denies family history of Anesthesia complication Bleeding disorder Social History Smoking and tobacco/nicotine status: former use of tobacco/nicotine Quit status (tobacco/nicotine): has quit using Year quit tobacco: 2016 cigarettes; 2021elec Former quit date comment: 1ppd x 10 years; started vaping when quit cigarettes Second hand smoke exposure: No Alcohol intake: never Substance/Drug Use: never Pertinent Exam Findings alert and oriented x 3 GENERAL: Patient is alert, awake and oriented x3. HEART: Regular S1 and S2. No murmur, rub or gallop. LUNGS: Inspiratory crackles. CENTRAL NERVOUS SYSTEM: Grossly nonfocal. EXTREMITIES: Lower extremities with out edema bilaterally. Conscious Sedation Assessment PATIENT ASSESSED PRIOR TO SEDATION, WITH NO CHANGE NOTED: Yes AIRWAY EVAL/ANESTHESIA PLAN: ASA II, Risks, benefits & alternatives of sedation and/or procedure discussed and Patient agrees to continue as planned Recommendations Surgery/Procedure today Coding Level of Care Code Acute Code for Chg Fwhaydee
[2024-06-21 08:26] LABS: Alveolar-Arterial Oxygen Gradi 3.6 mmHg (5-10); Arterial Blood Gas Hematocrit 27.5 % (42-52); Blood Gas Sample Site AO; Carboxyhemoglobin 1.2 %THgb (0.4-20.1); HGB O2 Sat 93.3 % (95-100); Methemoglobin 0.3 % (0.4-1.5)
[2024-06-21 08:27] LABS: Alveolar-Arterial Oxygen Gradi 7.1 mmHg (5-10); Arterial Blood Gas Hematocrit 32.7 % (42-52); Blood Gas Operator Identificat MONRO; Blood Gas Sample Site ra; Blood Gas Sample Type Not specified; Carboxyhemoglobin 1.3 %THgb (0.4-20.1); Methemoglobin 0.9 % (0.4-1.5); Oxygen Device ROOM AIR; Total Hemoglobin 10.7 g/dL (14-18)
[2024-06-21 08:28] LABS: Arterial Blood Gas Hematocrit 29.3 % (42-52); Blood Gas Operator Identificat MONRO; Blood Gas Sample Site RV; Blood Gas Sample Type Not specified; Carboxyhemoglobin 1.3 %THgb (0.4-20.1); HGB O2 Sat 71.9 % (95-100); Methemoglobin 0.4 % (0.4-1.5); Oxygen Device ROOM AIR; Total Hemoglobin 9.6 g/dL (14-18)
[2024-06-21 08:29] LABS: Blood Gas Operator Identificat MONRO; Blood Gas Sample Type Not specified; Oxygen Device ROOM AIR
[2024-06-21 08:30] LABS: Arterial Blood Gas Hematocrit 25.5 % (42-52); Blood Gas Operator Identificat MONRO; Blood Gas Sample Type Not specified; Carboxyhemoglobin 1.5 %THgb (0.4-20.1); HGB O2 Sat 74.6 % (95-100); Methemoglobin 1.1 % (0.4-1.5); Total Hemoglobin 8.3 g/dL (14-18)
[2024-06-21 08:41] LABS: Oxygen Device RA
== END 2024-06-21 11:47 | disposition home or self-care (01) ==
PROVIDERS: PCP Emergency Medicine Emergency Medical Services; Visit Provider Internal Medicine Cardiovascular Disease
DX: Z01.818 Encounter for other preprocedural examination (principal); J84.9 Interstitial pulmonary disease, unspecified; Z76.82 Awaiting organ transplant status; I10 Essential (primary) hypertension; E78.5 Hyperlipidemia, unspecified; Z87.891 Personal history of nicotine dependence; Z79.82 Long term (current) use of aspirin; K21.9 Gastro-esophageal reflux disease without esophagitis
CPT/HCPCS: 36415; 82810; 93460; 96365; 99152; 99153; C1751; C1769; C1887; C1894; J1644; J2250; J3010; J3490; J7030; Q0163; Q9967

== ENCOUNTER 2024-06-25 11:40 | Outpatient (CLI) | payer OTHER, SELFPAY ==
--- NOTE | 2024-06-25 11:46 | CT_ITS ---
WS: [id number] CT chest wo con [id number] HISTORY: TRANSPLANT EVALUATION TECHNIQUE: Axial imaging performed through the thorax. Coronal and sagittal reformats are submitted. All CT scans at [facility] use at least one of these dose optimization techniques: automated exposure control; mA and/or kV adjustment per patient size (includes targeted exams where dose is mat ched to clinical indication); or iterative reconstruction. CONTRAST: None DLP: 437.64 mGy.cm COMPARISON: 08/05/2023 Lungs and central airway: Thin linear scar versus platelike atelectasis at the RIGHT apex. Slightly s piculated 5 mm nodule at the RIGHT apex. 3 mm noncalcified nodule anterior LEFT upper lobe. 3 mm nodu le central LEFT upper lobe. 4 mm nodule medial RIGHT upper lobe. New slightly irregular 8 mm noncalci fied pulmonary nodule medial RIGHT lower lobe. Additional linear scar medial LEFT lower lobe. Bilater al, 4 mm pleural nodules in the lower lung new. Pleura: Normal. No pleural effusion. Heart and pericardium: Normal size heart with no pericardial effusion. Mediastinum and shannon: No mediastinum or hilar adenopathy. Vessels: Pulmonary artery is slightly larger than the aorta. Minimal atherosclerotic disease in the a emile. Chest wall and lower neck: No soft tissue masses. Upper abdomen: Small hiatal hernia. Prior cholecystectomy. Entire spleen is not included. No adrenal mass. Osseous structures: No destructive process. CT/CT chest wo con [id number] IMPRESSION: 1. Bilateral, new pulmonary nodules. The largest nodule in the medial RIGHT lo wer lobe is noncalcified measuring 8 mm. There are additional nodules which are much smaller. Currently metastatic disease or neoplasm not excluded. 2. No dense consolidation or pneumonia. 3. Mild pulmonary enlargement. 4. No adenopathy. 5. Prior cholecystectomy.
== END 2024-06-25 11:41 | disposition home or self-care (01) ==
LOC: RAD 11:40
PROVIDERS: PCP Nurse Practitioner; Visit Provider Nurse Practitioner Family
DX: Z01.89 Encounter for other specified special examinations (principal); R91.8 Other nonspecific abnormal finding of lung field; Z90.49 Acquired absence of other specified parts of digestive tract; K44.9 Diaphragmatic hernia without obstruction or gangrene; R93.89 Abnormal findings on diagnostic imaging of other specified body structures
CPT/HCPCS: 71250

== ENCOUNTER → 2024-07-03 13:03 | Outpatient (BNVA) | payer OTHER, SELFPAY | PROVIDERS: PCP Nurse Practitioner; Visit Provider Nurse Practitioner Family | DX: I95.1 Orthostatic hypotension (principal); Z76.82 Awaiting organ transplant status; R42 Dizziness and giddiness; Z87.891 Personal history of nicotine dependence | CPT/HCPCS: 99213 ==

== ENCOUNTER 2024-08-22 11:12 | Outpatient (CLI) | payer OTHER, SELFPAY ==
--- NOTE | 2024-08-22 11:22 | XR_ITS ---
WS: [id number] SCREENING DEXA SCAN [email or web address] CLINICAL INFORMATION: Encounter for other specified special examinations COMPARISON: None. FINDINGS: The L1-L4 bone mineral density measures 1.302 g/cm2. This corresponds to a T score score of 0.7 and Z score of 0.8. Left femoral neck bone mineral density measures 1.038 g/cm2. This corresponds to a T score of -0.4 and Z score of -0.1. Right femoral neck bone mineral density measures 1.007 g/cm2. This corresponds to a T score -0.7of and Z score of -0.4. Mean femoral neck bone mineral density measures 1.023 g/cm2. This corresponds to a T score of -0.5 and Z score of -0.2. XR/XR DEXA axial skeleton* [id number] IMPRESSION: Normal bone mineralization lumbar spine and femoral necks. Patient's FRAX calculated 10 year probability for major osteoporotic fracture i s 4.3% and osteoporotic hip fracture is 0.4%.
== END 2024-08-22 11:13 | disposition home or self-care (01) ==
PROVIDERS: PCP Nurse Practitioner; Visit Provider Nurse Practitioner Family
DX: Z01.89 Encounter for other specified special examinations (principal)
CPT/HCPCS: 77080

== ENCOUNTER → 2024-12-31 10:02 | Outpatient (BNVA) | payer OTHER, SELFPAY | PROVIDERS: PCP Nurse Practitioner; Visit Provider Student in an Organized Health Care Education/Training Program | DX: E61.1 Iron deficiency (principal) | CPT/HCPCS: 99204 ==

== ENCOUNTER → 2025-01-09 13:57 | Outpatient (BNVA) | payer OTHER, SELFPAY | PROVIDERS: PCP Nurse Practitioner; Visit Provider Internal Medicine Cardiovascular Disease | DX: R42 Dizziness and giddiness (principal); Z76.82 Awaiting organ transplant status; I95.1 Orthostatic hypotension | CPT/HCPCS: 99214 ==

== ENCOUNTER → 2025-01-22 07:52 | Outpatient (BNVA) | payer OTHER, SELFPAY | PROVIDERS: PCP Nurse Practitioner; Visit Provider Family Medicine | DX: Z01.818 Encounter for other preprocedural examination (principal) | CPT/HCPCS: 93005 ==

== ENCOUNTER 2025-02-12 08:01 | Day surgery (SDC) | payer OTHER, SELFPAY ==
[2025-02-12 08:13] VITALS: BMI 29.0
[2025-02-12 08:17] VITALS: BP 137/72; PULSE 68; RESP 18; TEMP 36.4; O2SAT 99
--- NOTE | 2025-02-12 08:27 | ANES.PREANE2 ---
Pre-Anesthetic Assessment Height/Weight: Height 1.68 m Weight 81.647 kg Temp Pulse Resp BP Pulse Ox 97.5 F L 68 18 137/72 99 02/12/25 08:17 02/12/25 08:17 02/12/25 08:17 02/12/25 08:17 02/12/25 08:17 Preop Diagnosis: Fe def anemia Operation Date: 02/12/25 09:30 Proposed Procedures p EGD EGD with Biopsy [id number] G0105 D50.9(Not Applicable) - Eduin Barone MD s Colonoscopy(Not Applicable) - Eduin Barone MD Was Beta George taken within 24 hours: Yes Was Clonidine taken within 24 hours: N/A Last intake: Intake Last Liquid Date 02/11/25 Last Liquid Time 20:00 Last Solid Date 02/10/25 Social Tobacco Exam alert, oriented x 3, clear to auscultation bilaterally and regular rate & rhythm Airway Submandibular: within normal limits Cervical ROM: within normal limits Mallampati: Class II Dentition: full History/ROS No significant history except as noted and No significant complaints Pulmonary Pulmonary fibrosis. Home O2 CV/HEM Hypertension None reported Hepatic None reported GI None reported Metabolic None reported Musc/skel None reported Neuropsych None reported Anesthetic Plan ASA status: 3 Anesthesia: Anesthesia Evaluation and MAC Risk of > 500 ml blood loss (7ml/kg in children): No Medications/Allergies Home Medications ?Medication ?Instructions ?Recorded ?Confirmed ?Last Taken ?Type acetaminophen 500 mg tablet 1,000 mg PO Q4H PRN Pain 05/13/21 02/06/25 02/06/25 History aspirin 81 mg tablet,delayed 81 mg PO DAILY 05/13/21 02/06/25 02/04/25 History release bupropion HCl 150 mg 24 hr tablet, 150 mg PO QAM 05/13/21 02/06/25 02/06/25 History extended release doxepin 50 mg capsule 100 mg PO BEDTIME 05/13/21 02/06/25 02/06/25 History mirtazapine 30 mg tablet 60 mg PO BEDTIME 05/13/21 02/06/25 02/06/25 History ziprasidone HCl 80 mg capsule 80 mg PO BID 05/13/21 02/06/25 02/06/25 History spectrum AFO #1 ea 03/02/06/25 02/06/25 Rx albuterol sulfate 90 mcg/actuation 2 puff inhalation Q6H PRN 12/02/21 02/06/25 02/03/25 History aerosol inhaler Shortness Of Breath atorvastatin 40 mg tablet 40 mg PO DAILY #90 tabs 01/28/22 02/06/25 06/21/24 05:30 Rx nitroglycerin 0.4 mg sublingual 0.4 mg sublingual Q5M PRN chest 01/28/22 02/06/25 09/22/22 Rx tablet pain #30 tabs Oxygen #1 ea 05/25/23 02/06/25 02/06/25 Rx trazodone 50 mg tablet 100 mg PO .q hs [facility] med list has 01/09/25 02/06/25 02/06/25 History 25mg qid prn-pt states he just takes 25mgbid fluticasone fur. 100 mcg-umeclid 1 inh inhalation QDAY 01/22/25 02/06/25 02/06/25 History 62.5 mcg-vilant 25 mcg inhalat.powder (Trelegy Ellipta) Allergies Allergy/AdvReac Type Severity Reaction Status Date / Time No Known Allergies Allergy Verified 01/22/25 08:27 Current Medications Generic Name Dose Route Start Last Admin Trade Name Freq PRN Reason Stop Dose Admin Sodium Chloride 1,000 mls @ 15 mls/hr 02/12/25 08:09 02/12/25 08:22 Sodium Chloride 0.9% IV 02/13/25 08:08 15 mls/hr .Q24H PRN Administration COLONOSCOPY FLUIDS PFSH Anesthesia Medical History GERD (gastroesophageal reflux disease) Vomiting Acute prostatitis Hyperlipidemia GERD (gastroesophageal reflux disease) Hypertension Surgical History History of elbow surgery History of laparoscopic cholecystectomy History of ankle surgery History of neck surgery History of skin graft History of elbow surgery H/O wrist surgery Family History Father Heart attack Mother Heart disease Cancer Denies family history of Anesthesia complication Bleeding disorder Social History Smoking and tobacco/nicotine status: former use of tobacco/nicotine Quit status (tobacco/nicotine): has quit using Year quit tobacco: 2017 cigarettes; 2021elec Former quit date comment: 1ppd x 10 years; started vaping when quit cigarettes Second hand smoke exposure: No Alcohol intake: never Substance/Drug Use: never Data Anesthesia Cardiac Studies: Echocardiogram 06/08/24 Sestamibi Stress Test (Cardiology) 07/23/21
--- NOTE | 2025-02-12 08:44 | W.PM.OPSFHP ---
Same Day Surgery H&P Indication for Procedure/HPI DATE OF PROCEDURE: February 12, 2025 CHIEF COMPLAINT/INDICATIONFOR SURGICAL PROCEDURE: iron deficiency anemia PREOP DIAGNOSIS: Fe def anemia PLANNED PROCEDURE: Operation Date: 02/12/25 09:30 Proposed Procedures p EGD EGD with Biopsy [id number] G0105 D50.9(Not Applicable) - Eduin Barone MD s Colonoscopy(Not Applicable) - Eduin Barone MD Medications/Allergies* Home Medications ?Medication ?Instructions ?Recorded ?Confirmed ?Type acetaminophen 500 mg tablet 1,000 mg PO Q4H PRN Pain 05/13/21 02/06/25 History aspirin 81 mg tablet,delayed 81 mg PO DAILY 05/13/21 02/06/25 History release bupropion HCl 150 mg 24 hr tablet, 150 mg PO QAM 05/13/21 02/06/25 History extended release doxepin 50 mg capsule 100 mg PO BEDTIME 05/13/21 02/06/25 History mirtazapine 30 mg tablet 60 mg PO BEDTIME 05/13/21 02/06/25 History ziprasidone HCl 80 mg capsule 80 mg PO BID 05/13/21 02/06/25 History albuterol sulfate 90 mcg/actuation 2 puff inhalation Q6H PRN 12/02/21 02/06/25 History aerosol inhaler Shortness Of Breath trazodone 50 mg tablet 100 mg PO .q hs va med list has 01/09/25 02/06/25 History 25mg qid prn-pt states he just takes 25mgbid fluticasone fur. 100 mcg-umeclid 1 inh inhalation QDAY 01/22/25 02/06/25 History 62.5 mcg-vilant 25 mcg inhalat.powder (Trelegy Ellipta) Allergies/Adverse Reactions Allergy/AdvReac Type Severity Reaction Status Date / Time No Known Allergies Allergy Verified 01/22/25 08:27 Current Medications: Generic Name Dose Route Start Last Admin Trade Name Freq PRN Reason Stop Dose Admin Sodium Chloride 1,000 mls @ 15 mls/hr 02/12/25 08:09 02/12/25 08:22 Sodium Chloride 0.9% IV 02/13/25 08:08 15 mls/hr .Q24H PRN Administration COLONOSCOPY FLUIDS Pertinent History/Comorbid Conditions* Medical History (Updated 12/31/24 @ 10:32 by Eduin Barone MD) GERD (gastroesophageal reflux disease) Vomiting Acute prostatitis Hyperlipidemia GERD (gastroesophageal reflux disease) Hypertension Surgical History (Updated 08/12/21 @ 10:37 by Julio Cesar Edward MD) History of elbow surgery History of laparoscopic cholecystectomy History of ankle surgery History of neck surgery History of skin graft History of elbow surgery H/O wrist surgery Family History (Updated 05/28/21 @ 12:53 by Kirti Resendiz LPN) Father Heart disease Mother Heart attack Father Cancer Mother Denies family history of Anesthesia complication Bleeding disorder Social History Smoking and tobacco/nicotine status: former use of tobacco/nicotine Quit status (tobacco/nicotine): has quit using Year quit tobacco: 2016 cigarettes; 2021elec Former quit date comment: 1ppd x 10 years; started vaping when quit cigarettes Second hand smoke exposure: No Alcohol intake: never Substance/Drug Use: never Pertinent Exam Findings alert, oriented x 3, clear to auscultation bilaterally, regular rate & rhythm and procedure specific exam findings abdomen soft, nt, nd 2L NC 100% SatO2 Recommendations Risks and benefits of procedure reviewed and Patient/family agree to proceed Surgery/Procedure today Other Plans: Discussed with patient regarding high risk of cardiopulmonary complications. Patient agrees to proceed. Discussed with anesthesia as well, ok to proceed. Coding Level of Care Code Acute Code for Chg Kei
[2025-02-12 09:11] VITALS: BP 123/59; PULSE 60; RESP 20; TEMP 36.6; O2SAT 97
[2025-02-12 09:21] VITALS: BP 144/78; PULSE 62; RESP 18; O2SAT 100
--- NOTE | 2025-02-12 09:45 | ANE.PACU2 ---
Inpatient post-anesthesia follow up: Airway intact: Yes Vital signs: Temperature 97.8 F Pulse Rate 62 Respiratory Rate 18 Blood Pressure 144/78 Pulse Oximetry 100 Oxygen Delivery Me thod Room Air Oxygen Flow Rate Fraction of Inspir ed Oxygen Hydration adequate: Yes Nausea and vomiting: No Pain level: 1 Mental status: Baseline
== END 2025-02-12 09:48 | disposition home or self-care (01) ==
PROVIDERS: PCP Nurse Practitioner; Visit Provider Student in an Organized Health Care Education/Training Program
PROC: 0DJ08ZZ Inspection of Upper Intestinal Tract, Via Natural or Artificial Opening Endoscopic (ICD-10-PCS; principal; 2025-02-12 09:30)
PROC: 0DJD8ZZ Inspection of Lower Intestinal Tract, Via Natural or Artificial Opening Endoscopic (ICD-10-PCS; CPT 45378; 2025-02-12 09:30)
DX: D50.9 Iron deficiency anemia, unspecified (principal); K62.89 Other specified diseases of anus and rectum; K29.50 Unspecified chronic gastritis without bleeding; Z79.82 Long term (current) use of aspirin; K21.9 Gastro-esophageal reflux disease without esophagitis; E78.5 Hyperlipidemia, unspecified; I10 Essential (primary) hypertension; Z87.891 Personal history of nicotine dependence; Z99.81 Dependence on supplemental oxygen
CPT/HCPCS: 43239; 45380; 88305; 88342; J2704; J7030

== ENCOUNTER → 2025-02-27 14:31 | Outpatient (BNVA) | payer OTHER, SELFPAY | PROVIDERS: PCP Nurse Practitioner; Visit Provider Specialist | DX: M17.12 Unilateral primary osteoarthritis, left knee (principal); S83.222A Peripheral tear of medial meniscus, current injury, left knee, initial encounter; W19.XXXA Unspecified fall, initial encounter | CPT/HCPCS: 73560; 73565; 99215 ==

== ENCOUNTER 2025-02-28 10:07 | Outpatient (CLI) | payer OTHER, SELFPAY ==
[2025-02-28 12:45] LABS: Hematocrit 34.3 % (37-53); Hemoglobin 11.20 g/dL (11.27-16.99); Mean Corpuscular HGB Conc 32.7 g/dL (30-55); Mean Corpuscular Hemoglobin 26.8 pg (27-33); Mean Corpuscular Volume 82.1 fl (82-101); Nucleated Red Blood Cells % 0 %; Platelet Count 163 10^3/cmm (157-399); Red Blood Count 4.18 10^6/uL (3.85-5.65); White Blood Count 6.60 10^3/uL (3.29-11.43)
[2025-02-28 12:51] LABS: Glucose Urine UA Negative (Normal); Nitrate Urine Negative (Negative); Specific Gravity, Urine 1.015 (1.005-1.030)
[2025-02-28 12:57] LABS: Add Urine Microscopic? YES
[2025-02-28 13:06] LABS: Alanine Aminotransferase 14 U/L (0-41); Albumin Level 4.3 g/dL (3.5-5.2); Alkaline Phosphatase 68 U/L (40-130); Anion Gap 16.1 (5-19); Aspartate Amino Transferase 17 U/L (0-40); Blood Urea Nitrogen 9 mg/dL (6-20); Calcium 9.1 mg/dL (8.5-10.5); Carbon Dioxide 28 mmol/L (22-29); Chloride 97 mmol/L (98-107); Globulin 2.7 g/dL (1.3-4.6); Glucose 120 mg/dL (65-115); Osmolality Calculated 284 mOsm/kg (285-295); Potassium 4.1 mmol/L (3.5-5.1); Sodium 137 mmol/L (136-145); Total Protein 7.0 g/dL (6.6-8.7)
== END 2025-02-28 10:08 | disposition home or self-care (01) ==
PROVIDERS: PCP Nurse Practitioner; Visit Provider Specialist
DX: Z01.818 Encounter for other preprocedural examination (principal)
CPT/HCPCS: 36415; 80053; 81001; 85025

== ENCOUNTER 2025-03-04 10:11 | Day surgery (SDC) | payer OTHER, SELFPAY ==
[2025-03-04] VITALS (9 sets, daily range): BP systolic 112–158; BP diastolic 52–103; PULSE 59–91; RESP 10–18; TEMP 36.2–36.5; O2SAT 92–100; BMI 29.8
[2025-03-04] MEDS: acetaminophen 1,000 MG/100 ML PIGGYBACK 400 MG IV (10:50)
--- NOTE | 2025-03-04 11:06 | ANES.PREANE2 ---
Pre-Anesthetic Assessment Height/Weight: Height 1.68 m Weight 83.915 kg Temp Pulse Resp BP Pulse Ox O2 Del Method 97.7 F 59 L 17 146/78 99 Room Air 03/04/25 10:30 03/04/25 10:30 03/04/25 10:30 03/04/25 10:30 03/04/25 10:30 03/04/25 10:30 Operation Date: 03/04/25 12:00 Proposed Procedures p Knee Arthroscopy(Left) - Joselyn Benjamin MD Familial anesthetic complications: None Was Beta George taken within 24 hours: N/A Was Clonidine taken within 24 hours: N/A Last intake: Intake Last Liquid Date 03/03/25 Last Liquid Time 22:00 Last Solid Date 03/03/25 Last Solid Time 21:00 Social No alcohol and No tobacco Exam alert, oriented x 3, clear to auscultation bilaterally and regular rate & rhythm Airway Mallampati: Class II Dentition: full Pulmonary Sleep Apnea fibrosis CV/HEM Hypertension GI Gastroesophageal Reflux Disease Anesthetic Plan ASA status: 4 Anesthesia: General Risk of > 500 ml blood loss (7ml/kg in children): No Medications/Allergies Home Medications ?Medication ?Instructions ?Recorded ?Confirmed ?Last Taken ?Type acetaminophen 500 mg tablet 1,000 mg PO Q4H PRN Pain 05/13/21 03/04/25 02/06/25 History bupropion HCl 150 mg 24 hr tablet, 150 mg PO QAM 05/13/21 03/04/25 03/03/25 History extended release doxepin 50 mg capsule 100 mg PO BEDTIME 05/13/21 03/04/25 03/03/25 History mirtazapine 30 mg tablet 60 mg PO BEDTIME 05/13/21 03/04/25 03/03/25 History ziprasidone HCl 80 mg capsule 80 mg PO BID 05/13/21 03/04/25 03/03/25 History spectrum AFO #1 ea 08/26/21 03/04/25 02/06/25 Rx albuterol sulfate 90 mcg/actuation 2 puff inhalation Q6H PRN 12/02/21 03/04/25 03/04/25 History aerosol inhaler Shortness Of Breath nitroglycerin 0.4 mg sublingual 0.4 mg sublingual Q5M PRN chest 08/03/04/25 09/22/22 Rx tablet pain #30 tabs Oxygen #1 ea 05/25/23 03/04/25 02/06/25 Rx trazodone 50 mg tablet 100 mg PO .q hs [facility] med list has 01/09/25 03/04/25 03/03/25 History 25mg qid prn-pt states he just takes 25mgbid fluticasone fur. 100 mcg-umeclid 1 inh inhalation QDAY 01/22/25 03/04/25 03/03/25 History 62.5 mcg-vilant 25 mcg inhalat.powder (Trelegy Ellipta) pantoprazole 40 mg tablet,delayed 40 mg PO BID 30 days #60 tabs 03/04/25 03/04/25 03/03/25 Rx release (Protonix) Allergies Allergy/AdvReac Type Severity Reaction Status Date / Time No Known Allergies Allergy Verified 03/04/25 08:30 Current Medications Generic Name Dose Route Start Last Admin Trade Name Freq PRN Reason Stop Dose Admin Sodium Chloride 1,000 mls @ 30 mls/hr 03/04/25 10:30 03/04/25 10:52 Sodium Chloride 0.9% IV 03/05/25 10:29 30 mls/hr .Q24H ISMAEL Administration PFSH Anesthesia Medical History GERD (gastroesophageal reflux disease) Vomiting Acute prostatitis Hyperlipidemia GERD (gastroesophageal reflux disease) Hypertension Surgical History History of elbow surgery History of laparoscopic cholecystectomy History of ankle surgery History of neck surgery History of skin graft History of elbow surgery H/O wrist surgery Family History Father Heart attack Mother Heart disease Cancer Denies family history of Anesthesia complication Bleeding disorder Social History Smoking and tobacco/nicotine status: former use of tobacco/nicotine Quit status (tobacco/nicotine): has quit using Year quit tobacco: 2016 cigarettes; 2021elec Former quit date comment: 1ppd x 10 years; started vaping when quit cigarettes Second hand smoke exposure: No Alcohol intake: never Substance/Drug Use: never Data Anesthesia Cardiac Studies: Echocardiogram 06/08/24 Sestamibi Stress Test (Cardiology) 07/23/21
--- NOTE | 2025-03-04 12:41 | P.HPUD_ITS ---
Surgery/Procedure H&P Update DATE OF PROCEDURE: March 04, 2025 DATE H&P PERFORMED: 02/27/25 H&P UPDATE INFORMATION: I have reviewed H&P completed within last 30 days, I have examined patient prior to procedure, No changes to prior documentation, H&P is in [facility] EMR on date indicated and Risks and benefits of the procedure reviewed CHANGES TO PREVIOUS DOCUMENTATION: X-rays were obtained here in the office on 02/27/25, and these were personally interpreted by me. X-ray series includes bilateral AP weightbearing films of the knees as well as isolated lateral and sunrise of the patient's left knee. Bilateral AP weightbearing films demonstrate there is joint space narrowing in the medial compartment of both knees, but this is worse in the left knee than the right knee. There is no significant varus deformity, however. There is no evidence of fracture or dislocation in any of the imaging studies. The lateral demonstrates an osteophyte inferiorly on the patella, and femoral architecture is well-maintained. Hamlin view demonstrates slight patellar tilt with narrowing laterally. There is no joana dislocation or subluxation, however. Overall findings are consistent with mild to moderate degenerative osteoarthritic change bilateral knees left greater than right. MRI was obtained by the [place] of the left knee without contrast. Findings on this study include intact anterior and posterior cruciate ligaments. There is com plex tear involving the posterior horn the medial meniscus with partial obliteration of the posterior horn as well as degenerative intrasubstance type changes within the lateral meniscus. The medial and lateral collateral ligaments as well as quadriceps and patellar tendons are intact. There are degenerative changes within the knee, in particular, mild narrowing of the medial compartment. There is also an osteochondral lesion of the lateral tibial plateau. There was a moderate-sized Levine's cyst with satisfactory musculature. Overall impression was of a complete tear posterior horn medial meniscus with degenerative changes in the lateral meniscus and mild degenerative changes with mild narrowing in the medial compartment. Osteochondral lesion of the lateral tibial plateau with moderate joint effusion and Levine's cyst. PLANNED PROCEDURE: Operation Date: 03/04/25 12:00 Proposed Procedures p Knee Arthroscopy(Left) - Joselyn Benjamin MD Related Problem List Diagnoses 1. Peripheral tear of medial meniscus of left knee as current injury, initial encounter: Qualifiers: Encounter type: initial encounter Meniscus tear of knee type: peripheral 2. Primary osteoarthritis of left knee:
[2025-03-04] MEDS: ceFAZolin 2,000 mg SDV 2000 MG IVP (12:44)
[2025-03-04] MEDS: morphine 4 mg/mL SDV 1 mL XX (13:30)
[2025-03-04] MEDS: ROPivacaine 0.5% SDV 30 mL 150 MG INJECTION (13:30)
--- NOTE | 2025-03-04 14:27 | P.OP_ITS ---
Operative Report Date of procedure: March 04, 2025 Pre-op diagnosis: Left knee medial meniscal tear and degenerative osteoarthritis Post-op diagnosis: Left knee the medial and lateral meniscal tears and degenerative osteoarthritis Post-op findings: As noted above Procedure done: Left arthroscopic knee surgery with partial medial and lateral meniscectomies, chondroplasty medial and patellofemoral compartments Implants: None Specimens removed/disposition: Meniscal and cartilage fragments disposed of Pathology: None Surgeon: Joselyn Benjamin MD Motorcoach Operator: None Anesthesia: General (Per LMA, ASA 4) Estimated blood loss (mL): 5 Tourniquet time (min): 45 (At 250 mmHg) IV fluids (mL): 1,000 Urine output (mL): 0 (No Graves) Complications: None Findings: Significant degenerative osteoarthritic change within the knee, meniscal tear anterior third of the lateral meniscus and posterior horn of the medial meniscus Condition: stable Disposition: PACU (Then return to same-day surgery for discharge to home) Brief History: This 54-year-old gentleman presented to the office with complaints of severe left knee pain. The patient noted that he fell onto the knee the first week of January and knee pain have worsened since then. He tripped over a stool and denied other reasons for his fall. MRI obtained at the ID demonstrated complete tear of the posterior horn medial meniscus with degenerative changes in the lateral meniscus. There were also degenerative changes and narrowing of the medial compartment. After discussion in the office, the patient wished to proceed with operative intervention in the form of a knee arthroscopy. Risks and complications were discussed with him, and consents were signed. Procedure: Patient was brought to the operating theater and after undergoing adequate general anesthesia per LMA, ASA 4, the patient's left lower extremity was prepped and draped in usual fashion utilizing DuraPrep. A tourniquet was placed high on the leg prior to prepping and draping. The tourniquet was elevated prior to commencement of the surgical procedure to 250 mmHg. Total tourniquet time was 45 minutes. Elevation followed prepping and exsanguination. Prior to commencement of the surgical procedure, a surgical pause was performed. At the time of the surgical pause, we identified the site and side of surgery. We also confirm the patient's identity and appropriate and timely administration of preoperative antibiotics. Preoperative surgical markings were also visualized at this time. Standard arthroscopic portals were utilized including superolateral, inferomedial, and inferolateral portals. The examination commenced in the suprapatellar pouch area where the patient was noted to have chondromalacia of the significant degree on the undersurface of the patella. The patient's knee was noted to be quite tight. Even with complete paralyzation, it was difficult to pass the scope between the trochlear groove and the patella. 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 The arthroscope was then passed in the medial compartment where there was noted to be significant chondromalacia particularly overlying the medial femoral condyle and medial tibial plateau. There was also anterior horn tearing of the meniscus and posterior horn tearing of the meniscus. The knee was quite tight and it was difficult to reach the posterior horn. Debridement was accomplished of the anterior horn utilizing the arth roscopic shaver, and subsequently, this was further smoothed with the heat wand. In a similar fashion, posterior horn was addressed with the arthroscopic shaver followed by the heat wand. The meniscus was then palpated and found to be nondisplaceable into the knee joint. The arthroscope was then passed across the notch area where anterior cruciate ligament was visualized and found to be intact. There was synovitis around it and this was debrided and cauterized to avoid bleeding. The scope was passed into the lateral compartment with the knee in a famiog-so-krix position. Lateral meniscus was noted to have a tear on the undersurface of the meniscus at approximately the junction of the anterior and middle thirds. This was addressed with the intra-articular shaver and intra- articular heat wand. Once lateral meniscus had been thus prepared it was palpated and found to be intact and not displaceable into the knee joint. Scope was then returned to the medial compartment where further evaluation of the compartment was accomplished, and no further treatment was needed. Chondromalacia of the lateral tibial plateau was addressed with a chondroplasty as well. The arthroscope was then returned to the patellofemoral joint where a chondroplasty was performed of the undersurface of the patella and the trochlear groove. This chondroplasty involved use of the intra-articular shaver as well as the heat wand. Once the patella had been addressed, the scope was passed back through the knee compartments to evaluate for other abnormalities. Finding none, attention was directed to closure. The knee was copiously irrigated and suctioned dry. Following this, each portal was closed with a simple suture followed by Dermabond, Steri-Strips and OpSite. Additionally, the knee was injected with 20 mL of half percent ropivacaine and 8 mg of morphine. Additional 10 mL of ropivacaine was placed about the portals. Sterile dressing was placed consisting of the OpSite followed by an Huang wrap. Patient was returned to Recovery Room in satisfactory condition where he will be discharged home to follow-up with me in the office as scheduled. There were no complications and no specimens. Related Problem List Diagnoses 1. Peripheral tear of medial meniscus of left knee as current injury, initial encounter: 2. Complex tear of lateral meniscus of left knee as current injury, initial encounter: 3. Primary osteoarthritis of left knee:
[2025-03-04] MEDS: HYDROcodone-acetaminophen 5-325 mg Tablet 1 TAB PO (15:06)
--- NOTE | 2025-03-04 15:20 | ANE.PACU2 ---
Inpatient post-anesthesia follow up: Airway intact: Yes Vital signs: Temperature 97.2 F Pulse Rate 87 Respiratory Rate 17 Blood Pressure 155/70 Pulse Oximetry 92 Oxygen Delivery Me thod Room Air Oxygen Flow Rate Fraction of Inspir ed Oxygen Hydration adequate: Yes Nausea and vomiting: No Pain level: 1 Mental status: Baseline
== END 2025-03-04 15:20 | disposition home or self-care (01) ==
PROVIDERS: PCP Nurse Practitioner; Visit Provider Specialist
PROC: (CPT 29870; principal; 2025-03-04 12:00)
PROC: (CPT 29880; 2025-03-04 12:00)
PROC: (CPT 29880; 2025-03-04 12:00)
DX: M17.12 Unilateral primary osteoarthritis, left knee (principal); S83.242A Other tear of medial meniscus, current injury, left knee, initial encounter; G47.30 Sleep apnea, unspecified; I10 Essential (primary) hypertension; K21.9 Gastro-esophageal reflux disease without esophagitis; Z99.81 Dependence on supplemental oxygen; E78.5 Hyperlipidemia, unspecified; Z87.891 Personal history of nicotine dependence; Z79.82 Long term (current) use of aspirin
CPT/HCPCS: 29880; 99213; J0131; J0690; J1100; J2250; J2270; J2405; J2704; J2795; J3010; J3490; J7030; J9999

== ENCOUNTER → 2025-03-18 10:08 | Outpatient (BNVA) | payer OTHER, SELFPAY | PROVIDERS: PCP Nurse Practitioner; Visit Provider Nurse Practitioner | DX: Z98.890 Other specified postprocedural states (principal) | CPT/HCPCS: 99024 ==

== ENCOUNTER → 2025-04-08 13:07 | Outpatient (BNVA) | payer OTHER, SELFPAY | PROVIDERS: PCP Nurse Practitioner; Visit Provider Internal Medicine Cardiovascular Disease | DX: I95.1 Orthostatic hypotension (principal); Z87.891 Personal history of nicotine dependence; J84.10 Pulmonary fibrosis, unspecified | CPT/HCPCS: 99214 ==